=== PATIENT | female | born 1950 | race Caucasian/White ===

== ENCOUNTER 2021-06-13 14:03 | Inpatient (IN) | payer MEDICARE, SELFPAY ==
[2021-06-13] VITALS (12 sets, daily range): BP systolic 105–132; BP diastolic 65–95; PULSE 53–130; RESP 15–24; TEMP 36.4–36.7; O2SAT 91–99; BMI 19.1; BMI 20.7
--- NOTE | 2021-06-13 14:18 | EKG12_ITS ---
Test Reason : PALPS Blood Pressure : / mmHG Vent. Rate : 144 BPM Atrial Rate : 170 BPM P-R Int : 000 ms QRS Dur : 074 ms QT Int : 286 ms P-R-T Axes : 000 104 069 degrees QTc Int : 442 ms Atrial fibrillation Abnormal ECG Confirmed by JESSICA ONEIL MD ([id number]), manuscript editor DANIA SERRANO ([id number]) on 06/17/2021 9:47:20 AM Referred By: SUKUMAR
--- NOTE | 2021-06-13 14:19 | EDS_ITS ---
HPI History of Present Illness Chief Complaint: Palpitations Informant: patient Onset/Context/Timing Onset: Month(s) Current Severity: Moderate Maximum Severity: Moderate Narrative Narrative: Patient presents secondary to palpitations and feels as if she is in a flutter again. Patient has a history of paroxysmal A. fib. She states she feels like she has been in irregular rhythm for the last 10-1/2 months. She presents today because she is tired of not being able to do anything without having to stop and rest. She states she will feel short of breath when she exerts herself, but does admit she does not have trouble breathing. She denies chest pain. 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 She is currently on metoprolol and warfarin. [facility] Medical History (Updated 06/13/21 @ 16:[address] Fanny Rodriguez MD) CHF (congestive heart failure) Paroxysmal atrial fibrillation Thyroid disorder Home Medications aspirin 81 mg PO DAILY@0800 tab.chew 10/20/16 [Rx Last Taken 11/24/16] furosemide 20 mg PO BID@1000,1800 11/23/16 [History Last Taken Unknown] potassium chloride [Klor-Con M20] 20 meq PO BIDCM 11/23/16 [History Last Taken Unknown] flecainide 50 mg PO BID 05/08/17 [History Last Taken Unknown] metoprolol tartrate 25 mg PO BID 05/24/17 [History Last Taken Unknown] ferrous sulfate 325 mg PO BIDCM tab 05/25/17 [Rx Last Taken Unknown] pantoprazole 40 mg PO DAILY #30 tablet 05/25/17 [Rx Last Taken Unknown] Allergy/AdvReac Type Severity Reaction Status Date / Time No Known Allergies Allergy Verified 06/13/21 14:04 Social History Smoking Status: Never smoker ROS ROS ED Constitutional Constitutional ED: Denies chills or fever(s) Eyes Eyes: Denies change in vision ENT ENT ED: Denies sore throat Cardiovascular Cardiovascular: Reports palpitations and racing heartbeat; Denies chest pain Respiratory/Chest Respiratory/Chest: Reports dyspnea; Denies cough Gastrointestinal Gastrointestinal: Denies abdominal pain, diarrhea, nausea or vomiting Genitourinary Genitourinary ED: Denies dysuria Musculoskeletal Musculoskeletal: Denies back pain Integumentary Reports rash Neurologic Neurologic: Denies headache(s) or weakness Psychiatric Psychiatric: Denies anxiety or depression Allergic/Immunologic Allergic/Immunologic ED: Denies urticaria EXAM Physical Exam Const Vital Signs: 06/13/21 14:04 06/13/21 14:14 06/13/21 14:33 Temperature 98.1 F Temperature Source Temporal Pulse Rate 53 L 130 H Respiratory Rate 18 20 H Respiratory Effort Normal Non-Labored Respiratory Pattern Normal Blood Pressure 122/67 H Blood Pressure Mean 85 Pulse Ox 99 91 Oxygen Delivery Method Room Air Room Air 06/13/21 14:47 06/13/21 15:05 06/13/21 15:23 Temperature Temperature Source Pulse Rate 93 117 H 104 H Respiratory Rate 24 H 22 H 20 H Respiratory Effort Respiratory Pattern Blood Pressure 105/83 H 110/95 H 124/88 H Blood Pressure Mean 90 100 100 Pulse Ox 95 96 95 Oxygen Delivery Method Room Air Room Air Room Air Positive well nourished and well developed General Appearance ED: well developed HEENT Reports normocephalic and head/scalp atraumatic Eyes PERRL and EOMs intact bilaterally Neck supple Chest Wall inspection of chest normal and palpation of chest normal Resp normal respiratory effort and clear to auscultation bilaterally Cardio Rate: tachycardic Rhythm: abnormal rhythm irregularly irregular GI normal to inspection, nondistended, normoactive bowel sounds Palpation: soft Extremity normal to inspection Neuro oriented x3 and no sensory deficits noted Sensorium / Orientation: alert Motor Exam: strength 5/5 throughout Psych mental status grossly normal Skin no rashes or lesions noted MDM MDM MDM Narrative Medical decision making narrative: Labs, EKG, chest x-ray obtained. Lab Data Attestation: I reviewed the patient's lab results. Labs: Laboratory Results - last 24 hr 06/13/21 06/13/21 06/13/21 14:30 14:30 14:30 WBC 8.9 RBC 5.13 Hgb 14.4 Hct 44.9 MCV 87.5 MCH 28.1 MCHC 32.1 RDW Std Deviation 47.1 H RDW Coeff of Nicole 14.6 Plt Count 233 MPV 10.8 Immature Gran % (Auto) 0.400 Neut % (Auto) 73.3 H Lymph % (Auto) 18.0 L Barnwell % (Auto) 7.3 Eos % (Auto) 0.6 Baso % (Auto) 0.4 Absolute Neuts (auto) 6.5 Absolute Lymphs (auto) 1.60 Nucleated RBC % 0 PT 35.9 H INR 3.7 Sodium 135 L Potassium 4.3 Chloride 103 Carbon Dioxide 26.0 Anion Gap 6 BUN 27 H Creatinine 0.98 Estim Creat Clear Calc 42.73 Est GFR (MDRD) Af Amer 72 Est GFR (MDRD) Non-Af 59 L BUN/Creatinine Ratio 27.6 H Glucose 101 Calcium 8.5 Troponin I High Sens 10.8 B-Natriuretic Peptide TSH 9.46 H 06/13/21 14:30 WBC RBC Hgb Hct MCV MCH MCHC RDW Std Deviation RDW Coeff of Nicole Plt Count MPV Immature Gran % (Auto) Neut % (Auto) Lymph % (Auto) Barnwell % (Auto) Eos % (Auto) Baso % (Auto) Absolute Neuts (auto) Absolute Lymphs (auto) Nucleated RBC % PT INR Sodium Potassium Chloride Carbon Dioxide Anion Gap BUN Creatinine Estim Creat Clear Calc Est GFR (MDRD) Af Amer Est GFR (MDRD) Non-Af BUN/Creatinine Ratio Glucose Calcium Troponin I High Sens B-Natriuretic Peptide 2659.5 H TSH Radiography Chest X-Ray - ED: 1 View, Read by ED Physician and CHF EKG Initial EKG: Attestation: I personally reviewed and interpreted this EKG as follows: Interpretation: Atrial Fibrillation (A. fib at 144. No acute ST change.) Treatment and Re-Evaluation Comments:: Patient was given 10 mg of IV Cardizem. This brought her heart rate down into the 90s but she did increase back to the 120s again. A second dose of 10 mg is given. Patient's heart rate is currently in the 80s and 90s. Patient does have evidence of significant CHF on her chest x-ray per my interpretation as well as the radiologist interpretation. This was discussed with her. She will be given IV Lasix as she states her oral Lasix has not been helping her much lately. Plan will be to admit her for diuresis, rate control, evaluation by cardiology. Discharge Plan Triage Chief Complaint: Palpitations Other Complaint: Dizziness ED Provider: Fanny Rodriguez Dx/Rx/DC Orders Clinical Impression: Atrial fibrillation with rapid ventricular response, CHF (congestive heart failure) Prescriptions: No Action aspirin 81 MG Tab.Chew 81 mg PO DAILY@0800 RF: 0 furosemide 40 MG tablet 20 mg PO BID@1000,1800 RF: 0 potassium chloride [Klor-Con M20] 20 MEQ tablet 20 meq PO BIDCM RF: 0 flecainide 100 MG tablet 50 mg PO BID RF: 0 metoprolol tartrate 100 MG tablet 25 mg PO BID RF: 0 ferrous sulfate 325 MG tablet 325 mg PO BIDCM RF: 0 pantoprazole 40 MG tablet 40 mg PO DAILY Qty: 30 RF: 3 Primary Care Provider: Lei Acevedo Referrals: Lei Acevedo MD [Primary Care Provider] - Disposition Disposition: Acute Care Hospital [facility]
[2021-06-13] MEDS: dilTIAZem 25 MG/5 ML Vial 10 MG IV BOLUS ×2 (14:34→15:24)
[2021-06-13] MEDS: 0.9% Normal Saline 1,000 ML 150 ML IV (14:35)
[2021-06-13 14:37] LABS: Absolute Neutrophil Count 6.5 X10^3/uL (2.0-7.7); Basophil# 0.04 X10^3/uL; Basophil% 0.4 % (0-1); Eosinophil# 0.05 X10^3/uL; Eosinophils% 0.6 % (0-5); Hematocrit 44.9 % (37-47); Hemoglobin 14.4 g/dL (12.0-15.0); Mean Corp Hgb Conc 32.1 g/dL (32-36); Mean Corpuscular Hgb 28.1 pg (27.0-32.0); Mean Corpuscular Volume 87.5 fL (81-99); Mean Platelet Vol. 10.8 fl (6.2-12.0); Monocyte# 0.65 X10^3/uL; Monocyte% 7.3 % (0-10); NRBC Flagged by Analyzer 0 % (0-5); Neutrophil # 6.51 X10^3/uL (2.7-7.7); Neutrophil % 73.3 % (47-70); Platelet Count 233 K/mm3 (150-450); RBC Distribution Width CV 14.6 % (11.6-14.6); RBC Distribution Width SD 47.1 fl (35.1-43.9); Red Blood Count 5.13 M/mm3 (4.2-5.4); White Blood Count 8.9 K/mm3 (4.4-11.0)
--- NOTE | 2021-06-13 14:48 | RAD_ITS ---
STUDY: X-RAY CHEST REASON FOR EXAM: Female, 70 years old. Cough, dizziness. Palpitations. TECHNIQUE: Single AP portable view of the chest. COMPARISON: Comparison is made with prior study dated 05/24/2017. FINDINGS: EKG electrodes are seen. There is evidence of vascular congestion and CHF. Blunting of both confluent angles. Moderate cardiomegaly. Normal mediastinum and evelyn. Normal visualized pulmonary arteries. There is atherosclerotic calcification of the aortic arch with tortuosity. There are diffuse degenerative changes of the visualized thoracic spine. Levoscoliosis. There is degenerative osteoarthritis of the bilateral shoulders. There is no demonstrated abnormality of the visualized soft tissue structures of the upper abdomen. RAD/Chest 1 View (Portable) IMPRESSION: Cardiomegaly and CHF. Electronically Signed: Heriberto Urena MD at 15:11 EDT , Service support ,
[2021-06-13 14:49] LABS: International Normalized Ratio 3.7; Prothrombin Time (Protime)PT. 35.9 SECONDS (11.7-14.9)
[2021-06-13 15:01] LABS: Anion Gap 6 (5-15); BUN 27 mg/dL (7-18); BUN/Creat Ratio 27.6 RATIO (10-20); Calcium,Total 8.5 mg/dL (8.5-10.1); Chloride 103 mmol/L (98-107); Creatinine, Serum 0.98 mg/dL (0.55-1.02); EST Glomerular Filtration Rate 59 mL/min (>60); Est Glom Filt Rate - Afr Amer 72 mL/min (>60); Estimated Creatinine Clearance 42.73 ml/min; Glucose 101 mg/dL (74-106); Potassium 4.3 mmol/L (3.5-5.1); Sodium Level 135 mmol/L (136-145); Thyroid Stim Hormone (TSH) 9.46 uIU/mL (0.358-3.74); Troponin-I HS 10.8 pg/mL (3.0-53.7)
[2021-06-13 15:30] LABS: BNP,B-Type NATRIURETIC PEPTIDE 2659.5 pg/mL (0-100)
--- NOTE | 2021-06-13 16:14 | PCM.HP.STD ---
HPI - General General Date of Admission: 06/13/21 Date of Service: 06/13/21 Chief Complaint: Exertional dyspnea, palpitations HPI Narrative The patient is a 70 y/o F w/ PMHx: PAF, Hypothyroidism, GERD, Chronic anemia/Fe deficiency, HTN, HLD, Former Tobacco use who presents to the [facility] ED on 06/13/21 with history of sensations of palpitations, although she notes this has been ongoing for several months in addition to exertional dyspnea without chest pain, not following with Cardiology, only notes seeing her PCP. She had been on flecainide but has been off this and was transitioned only to metoprolol and coumadin. She notes that her doctor, her PCP, said she could not be on flecainide long-term. She notes if she walks she has to stop and rest with notable tachycardic sensation and dyspnea. Work-up in the ED included T 98.1, heart rate initially 53 however prior to evaluation heart rate 104, BP 122/67, respiratory rate 18, 99% on room air, CBC with WBC 8.9, hemoglobin 14.4, platelet 233 without marked shift, coags with PT 35.9, INR 3.7, BMP with sodium 135, BUN/creatinine 27/0.98, high-sensitivity troponin 10.8, TSH 9.46, BNP 2659.5, EKG performed with evidence atrial fibrillation with at that time rate 144 with evidence RVR with no acute evidence of ischemia, chest x-ray with evidence congestion. In the ED patient ministered 10 mg IV Cardizem with decrease of heart rate to the 90s however reoccurred with second dose administered in addition to IV Lasix administration. [facility] Medical History (Updated 06/13/21 @ 16:[address] Diana Deshpande MD) CHF (congestive heart failure) Former tobacco use History of goiter HLD (hyperlipidemia) HTN (hypertension) Paroxysmal atrial fibrillation Thyroid disorder Home Medications levothyroxine 25 mcg PO DAILY 06/13/21 [History Last Taken 06/13/21] lisinopril 10 mg PO DAILY 06/13/21 [History Last Taken 06/12/21] metoprolol succinate 50 mg PO DAILY 06/13/21 [History Last Taken 06/13/21] warfarin 3 mg PO DAILY 06/13/21 [History Last Taken 06/12/21] Allergy/AdvReac Type Severity Reaction Status Date / Time No Known Allergies Allergy Verified 06/13/21 14:04 Family History (Updated 06/13/21 @ 16:[address] Diana Deshpande MD) Mother Colon cancer Father Heart disease Myocardial infarction Surgical History (Updated 06/13/21 @ 16:[address] Diana Deshpande MD) S/P appendectomy S/P cholecystectomy S/P partial thyroidectomy Social History (Updated 06/13/21 @ 16:[address] Diana Deshpande MD) household members: spouse Smoking Status: Former smoker how long ago did patient quit smoking: Quit 2014, 1/2 ppd since eraly 20s. alcohol intake: never substance use type: does not use ROS ROS Narrative Admission Review of Systems: CONSTITUTIONAL: No weight loss, fever, chills, + weakness or fatigue. HEENT: Eyes: No visual loss, blurred vision, double vision or yellow sclerae. Ears, Nose, Throat: No hearing loss, sneezing, congestion, runny nose or sore throat. SKIN: No rash or itching, lesions, wounds. CARDIOVASCULAR: + Palpitations, edema. No chest pain, chest pressure or chest discomfort, orthopnea, syncopal events. RESPIRATORY: + shortness of breath, No cough or sputum, wheezing, hemoptysis. GASTROINTESTINAL: No anorexia, nausea, vomiting or diarrhea, abdominal pain, melena, BRBPR. GENITOURINARY: No dysuria, frequency, urgency or retention. NEUROLOGICAL: No headache, dizziness, syncope, paralysis, ataxia, numbness or tingling in the extremities, focal weakness, change in bowel or bladder control, seizure. MUSCULOSKELETAL: + muscle, back pain, joint pain or stiffness. HEMATOLOGIC: + anemia, bleeding or bruising. LYMPHATICS: No enlarged nodes. No history of splenectomy. PSYCHIATRIC: No history of depression or anxiety. ENDOCRINOLOGIC: No reports of sweating, cold or heat intolerance. No polyuria or polydipsia. ALLERGIES: No history of asthma, hives, eczema or rhinitis. Vital Signs Vital Signs Vital Signs: 06/13/21 14:04 06/13/21 14:14 06/13/21 14:33 Temperature 98.1 F Temperature Source Temporal Pulse Rate 53 L 130 H Respiratory Rate 18 20 H Respiratory Effort Normal Non-Labored Respiratory Pattern Normal Blood Pressure 122/67 H Blood Pressure Mean 85 Pulse Ox 99 91 Oxygen Delivery Method Room Air Room Air 06/13/21 14:47 06/13/21 15:05 06/13/21 15:23 Temperature Temperature Source Pulse Rate 93 117 H 104 H Respiratory Rate 24 H 22 H 20 H Respiratory Effort Respiratory Pattern Blood Pressure 105/83 H 110/95 H 124/88 H Blood Pressure Mean 90 100 100 Pulse Ox 95 96 95 Oxygen Delivery Method Room Air Room Air Room Air Weight Weight: 115 lb Body Mass Index (BMI) 19.1 Physical Exam Narrative Physical Examination: General: Awake, alert, oriented x 3 and cooperative, seated upright in the bed, fatigued appearing, no acute distress. Skin: Normal color, normal turgor, no icterus, no cyanosis. HEENT: AT/NC, EOMI, PERRLA, mildly dry MM, no carotid bruits, + JVD noted. Lungs: Diminished, greater bases, mild rales bilateral bases, no evidence of any distress, ronchi or wheezing. Heart: Irregular irregular; no gallop, rub audible. Abdomen: Soft, thin habitus, NTTP, ND, normal BS, no HSM. Extremities: No cyanosis, no clubbing, bilateral lower extremity pedal to distal sexton 1-2+ pitting edema. Neurological: Patient awake, alert, oriented as noted, cognitive function appears baseline intact; pupils equally reactive to light and accommodation, cranial nerves II-XII grossly normal, moving all 4 extremities, no focal deficits, strength moderately global decrease secondary to acute presentation. Psychiatric: Affect appears fatigued, no acute evidence of depressive or anxiety feelings. Results Lab / Micro Data Result Diagrams: 06/13/21 14:30 06/13/21 14:30 Labs: Laboratory Results - last 24 hr 06/13/21 14:30: WBC 8.9, RBC 5.13, Hgb 14.4, Hct 44.9, MCV 87.5, MCH 28.1, MCHC 32.1, RDW Std Deviation 47.1 H, RDW Coeff of Nicole 14.6, Plt Count 233, MPV 10.8, Immature Gran % (Auto) 0.400, Neut % (Auto) 73.3 H, Lymph % (Auto) 18.0 L, Lucas % (Auto) 7.3, Eos % (Auto) 0.6, Baso % (Auto) 0.4, Absolute Neuts (auto) 6.5, Absolute Lymphs (auto) 1.60, Nucleated RBC % 0 06/13/21 14:30: PT 35.9 H, INR 3.7 06/13/21 14:30: Sodium 135 L, Potassium 4.3, Chloride 103, Carbon Dioxide 26.0, Anion Gap 6, BUN 27 H, Creatinine 0.98, Estim Creat Clear Calc 42.73, Est GFR (MDRD) Af Amer 72, Est GFR (MDRD) Non-Af 59 L, BUN/Creatinine Ratio 27.6 H, Glucose 101, Calcium 8.5, Troponin I High Sens 10.8, TSH 9.46 H 06/13/21 14:30: B-Natriuretic Peptide 2659.5 H Assessment & Plan Assessment/Plan (1) CHF (congestive heart failure): QUALIFIERS: Heart failure type: unspecified Heart failure chronicity: acute Qualified Code(s): I50.9 - Heart failure, unspecified (2) Atrial fibrillation with rapid ventricular response: (3) Elevated TSH: PLAN: The patient is a 70 y/o F w/ PMHx: PAF, Hypothyroidism, GERD, Chronic anemia/Fe deficiency, HTN, HLD, Former Tobacco use who presents to the [facility] ED on 06/13/21 with history of sensations of palpitations, although she notes this has been ongoing for several months in addition to exertional dyspnea without chest pain, not following with Cardiology, only notes seeing her PCP. 1. Acute Decompensated CHF, Unclear type: Patient administered IV lasix in the ED, will admit to PCU, maintain on cardiac telemetry obtain cardiac enzyme series, obtain serial EKGs, continue IV lasix diuresis, monitor I/Os, maintain on intake restriction, continue medical therapy, obtain TSH and magnesium level. Will obtain ECHO. Cardiology consulted, pending. PRN morphine to decrease afterload, continue oxygen supplementation, if necessary will position w/ upright position with legs off bed to decrease preload. 2. Paroxysmal atrial fibrillation with RVR: EKG in ED w/ atrial fibrillation w/ RVR. Patient administered cardizem bolus twice in ED. Will admit to PCU, maintain on telemetry, obtain cardiac enzyme serial set, obtain magnesium level, obtain ECHO, TSH elevated with pending FT4 level. Will trend INR and hold coumadin as needed. Currently rate improved, will dose with metoprolol now and continue to monitor. If needed may initiate cardizem drip. Cardiology consulted, pending. 3. Hypothyroidism with abnormal TSH: Patient with history of prior goiter status post partial thyroidectomy, admission TSH elevated, will obtain FT4, continue synthroid in interim pending these results for alterations. 4. Chronic anemia/iron deficiency anemia: Reported history, admission hemoglobin 14.4, stable, trend. Not currently on any supplementation. 5. Hypertension: Continue home regimen including lisinopril, metoprolol with further alterations as needed as noted above, hold parameters, PRN hydralazine. 6. Hyperlipidemia: Given history will add low-dose statin regimen. AM FLP. 7. GERD: We will maintain on PPI. 8. DVT prophylaxis: SCDs, continue trending INR, hold Coumadin as needed. 9. CODE status: Patient PORFIRIO is her who is present and living will is currently in place. Discussed CODE status at length including difference between FULL code, DNR-CCA and DNR-CC status. Following discussions about the differences in these status, requested Full Code status. Advanced Care Planning Face to Face Time: 16 minutes. Charges/Coding Visit Charges Inpatient E&M: 85920 Init Hosp L3 Procedures Hospitalists Procedures: 28266 Advncd Care Plan 30 Min
[2021-06-13] MEDS: Furosemide 40 MG/4 ML Vial IV (16:22)
[2021-06-13 17:28] LABS: Magnesium 2.3 mg/dL (1.6-2.6)
[2021-06-13 18:48] LABS: Troponin-I HS 10.6 pg/mL (3.0-53.7)
--- NOTE | 2021-06-13 19:07 | NURSING ---
Patient arrived to unit at 1800. Admission nurse gave brief report to this RN. Patient dinner ordered and received. Patient eating and talking on cell phone. Will return to complete assessment.
--- NOTE | 2021-06-13 21:10 | CON.PCM.CA_ITS ---
Assessment & Plan Assessment/Plan (1) Atrial fibrillation with rapid ventricular response: PLAN: The patient has been in atrial fibrillation. It is unclear as to how long but based upon her history it has been for some time now. At the present time she will continue attempts at rate control therapy. She will continue anticoagulant therapy. She may need to be considered for a repeat attempt at synchronized biphasic DC cardioversion to regain sinus rhythm. However she may also need to be considered for a future EP consultation for possible EPS/RFA either of her atrial fibrillation or of her AV node with perma nent pacemaker support. (2) CHF (congestive heart failure): QUALIFIERS: Heart failure type: unspecified Heart failure chronicity: acute Qualified Code(s): I50.9 - Heart failure, unspecified PLAN: She does have evidence of CHF. In the past this was thought to be with preserved ejection fraction. At the moment she will continue medical therapy. This will include her diuretic therapy. She will have a follow-up echocardiogram to reassess her ventricular wall motion and systolic function. (3) HLD (hyperlipidemia): QUALIFIERS: Hyperlipidemia type: unspecified Qualified Code(s): E78.5 - Hyperlipidemia, unspecified PLAN: Her lipid labs can be reexamined. She will need treated appropriately. (4) HTN (hypertension): QUALIFIERS: Hypertension type: unspecified Qualified Code(s): I10 - Essential (primary) hypertension PLAN: Her blood will need to be followed with adjusting her medications accordingly. (5) Elevated TSH: PLAN: She does have a thyroid history. She will need continue evaluation care per internal medicine. Addt'l Comments The patient will continue evaluation care as noted above. This note was generated using a voice recognition system and there may be incorrect words, spelling or punctuation that were not noted when reviewing the office note prior to saving. HPI Consult Data Date of Consult: 06/13/21 HPI Narrative HPI Narrative: JAYSHREE BOWEN, is a 70 year old white female who presents cardiovascular consultation based upon concerns of atrial fibrillation and CHF superimposed upon concerns of hyperlipidemia, hypertension, and thyroid disorder. She had previously been evaluated for a similar scenario in October 2016. At that time she underwent medical therapy and a noninvasive evaluation. In November 2016 she underwent evaluation and care with a synchronized biphasic DC cardioversion and regain sinus rhythm. Over time she states she did not continue with her outpatient cardiovascular follow-up. She has been followed by her PCP. Her medications were adjusted over time where she had at one time been on rate control therapy and antiarrhythmic therapy with flecainide/Tambocor as well as her anticoagulant therapy to just being on rate control therapy and anticoagulant therapy. She notes now that for quite some time she feels she has been back in a flutter rhythm. She states this may have been going on for greater than a month. She notes that more recently she felt her heart rate more prominent and felt she may have been back in an underlying fibrillation rhythm. She also has become more short of breath and dyspneic and felt as if she was retaining fluid to some degree in her abdomen and her lower extremities. Thus she presented to the hospital for further evaluation. She was found to be in atrial fibrillation with RVR. There were concerns that she had developed recurrent CHF/pulmonary edema. Her troponin I level was negative. She did have a BNP level elevated at two 659 .5. Her ECG demonstrated atrial fibrillation with rapid ventricular response. She was placed in the PCU for further evaluation care. She has been treated with IV diltiazem therapy (bolus x2), her beta-yany therapy, and 1 dose of IV furosemide. She has continued on medical management with her anticoagulant therapy. [facility] Medical History (Updated 06/13/21 @ 21:[address] Mikhail Pittman MD) CHF (congestive heart failure) Former tobacco use History of goiter HLD (hyperlipidemia) HTN (hypertension) Paroxysmal atrial fibrillation Thyroid disorder Home Medications levothyroxine 25 mcg PO DAILY 06/13/21 [History Last Taken 06/13/21] lisinopril 10 mg PO DAILY 06/13/21 [History Last Taken 06/12/21] metoprolol succinate 50 mg PO DAILY 06/13/21 [History Last Taken 06/13/21] warfarin 3 mg PO DAILY 06/13/21 [History Last Taken 06/12/21] Allergy/AdvReac Type Severity Reaction Status Date / Time No Known Allergies Allergy Verified 06/13/21 14:04 Family History (Updated 06/13/21 @ 16:[address] Diana Deshpande MD) Mother Colon cancer Father Heart disease Myocardial infarction Surgical History S/P appendectomy S/P cholecystectomy S/P partial thyroidectomy Social History (Updated 06/13/21 @ 16:[address] Diana Deshpande MD) household members: spouse Smoking Status: Former smoker how long ago did patient quit smoking: Quit 2014, 1/2 ppd since eraly 20s. alcohol intake: never substance use type: does not use ROS Constitutional Constitutional: Reports as per HPI Eyes Eyes: Reports as per HPI ENT HEENT: Reports as per HPI Cardiovascular Cardiovascular: Reports dyspnea, leg edema and palpitations Respiratory/Chest Respiratory/Chest: Reports dyspnea Gastrointestinal Gastrointestinal: Reports as per HPI Genitourinary Genitourinary: Reports as per HPI Musculoskeletal Musculoskeletal: Reports as per HPI Neurologic Neurologic: Reports as per HPI Physical Exam Const alert, oriented x3, no apparent distress and healthy appearing Orientation / Consciousness: awake HEENT normocephalic, head/scalp atraumatic and hearing grossly normal bilaterally Eyes PERRL, EOMs intact bilaterally and conjunctivae normal Neck full ROM, supple and no JVD Chest inspection of chest normal Resp Auscultation: rales bilateral lower Cardio Rhythm: abnormal rhythm irregularly irregular Heart Sounds: S1 normal and S2 normal GI normal to inspection, nondistended, normoactive bowel sounds Extremity General Extremity: edema bilateral lower extremity Details: mild Skin no rashes or lesions noted Neuro oriented x3, CN's II-XII intact bilaterally and moves all extremities Psych mental status grossly normal Objective Data Vital Signs: Vital Signs Temp Pulse Resp BP Pulse Ox 98.1 F 108 H 15 115/90 H 96 06/13/21 17:50 06/13/21 17:50 06/13/21 20:17 06/13/21 17:50 06/13/21 17:50 Oxygen Delivery Method Room Air Weight: 124 lb 6.4 oz Body Mass Index (BMI) 20.7 Lab / Micro Data Result Diagrams: 06/13/21 14:30 06/13/21 14:30 Labs: Laboratory Results - last 24 hr 06/13/21 14:30: WBC 8.9, RBC 5.13, Hgb 14.4, Hct 44.9, MCV 87.5, MCH 28.1, MCHC 32.1, RDW Std Deviation 47.1 H, RDW Coeff of Nicole 14.6, Plt Count 233, MPV 10.8, Immature Gran % (Auto) 0.400, Neut % (Auto) 73.3 H, Lymph % (Auto) 18.0 L, [place] % (Auto) 7.3, Eos % (Auto) 0.6, Baso % (Auto) 0.4, Absolute Neuts (auto) 6.5, Absolute Lymphs (auto) 1.60, Nucleated RBC % 0 06/13/21 14:30: PT 35.9 H, INR 3.7 06/13/21 14:30: Sodium 135 L, Potassium 4.3, Chloride 103, Carbon Dioxide 26.0, Anion Gap 6, BUN 27 H, Creatinine 0.98, Estim Creat Clear Calc 42.73, Est GFR (MDRD) Af Amer 72, Est GFR (MDRD) Non-Af 59 L, BUN/Creatinine Ratio 27.6 H, Glucose 101, Calcium 8.5, Troponin I High Sens 10.8, TSH 9.46 H 06/13/21 14:30: B-Natriuretic Peptide 2659.5 H 06/13/21 14:30: Magnesium 2.3 06/13/21 18:17: Troponin I High Sens 10.6 Cardiology Labs/Tests 06/13/21 14:30: WBC 8.9, RBC 5.13, Hgb 14.4, Hct 44.9, MCV 87.5, MCH 28.1, MCHC 32.1, Plt Count 233, MPV 10.8, Immature Gran % (Auto) 0.400, Neut % (Auto) 73.3 H, Lymph % (Auto) 18.0 L, [place] % (Auto) 7.3, Eos % (Auto) 0.6, Baso % (Auto) 0.4, Absolute Neuts (auto) 6.5, Nucleated RBC % 0 06/13/21 14:30: PT 35.9 H, INR 3.7 06/13/21 14:30: Sodium 135 L, Potassium 4.3, Chloride 103, Carbon Dioxide 26.0, Anion Gap 6, BUN 27 H, Creatinine 0.98, Est GFR (MDRD) Af Amer 72, Est GFR (MDRD) Non-Af 59 L, BUN/Creatinine Ratio 27.6 H, Glucose 101, Calcium 8.5 06/13/21 14:30: B-Natriuretic Peptide 2659.5 H 06/13/21 14:30: Magnesium 2.3 Rhythm: Atrial fibrillation with RVR EKG: Atrial fibrillation with RVR ECHO: 10-19-2016 Left ventricle normal with an LVEF 60%; moderate biatrial enlargement; mild to moderate MR; moderate TR; small pericardial effusion; no echocardiographic indication of cardiac tamponade; estimated RV systolic pressure 28 mmHg Stress Test: 10-20-2016 EXERCISE TOLERANCE TEST: The patient underwent pharmacologic (regadenoson) evaluation with a peak heart rate of 142 beats per minute (93% predicted maximum heart rate) and a peak blood pressure of 128/72 mmHg. The baseline ECG demonstrated atrial fibrillation. The peak pharmacologic ECG demonstrated continued atrial fibrillation with no obvious ECG changes. There was a rare PVC during recovery. The patient had no complaint of chest discomfort during pharmacologic infusion or recovery. The examination was discontinued secondary to completion of protocol. IMPRESSION: 1. Pharmacologic (regadenoson) evaluation. 2. Peak pharmacologic ECG with continued atrial fibrillation with no obvious ECG changes. 3. Rare PVC during recovery. 4. Nuclear images pending. MYOCARDIAL PERFUSION IMAGING STUDY: TECHNIQUE: The patient was injected with 11.2 mCi of Tc99m Cardiolite and subsequently rest SPECT Cardiolite nuclear imaging was obtained in the horizontal long, vertical long and short axes views. The patient underwent pharmacologic (regadenoson) evaluation with a peak heart rate of 142 beats per minute (93% predicted maximum heart rate) and a peak blood pressure of 128/72 mmHg. The patient was injected with 32.1 mCi of Tc99m Cardiolite and subsequently stress SPECT Cardiolite nuclear imaging was obtained in the horizontal long, vertical long and short axes views. A gated Cardiolite study at peak stress was obtained. INTERPRETATION: Rest and stress SPECT Cardiolite nuclear imaging demonstrate relative uniform tracer uptake and myocardial perfusion appearing within normal limits. There was end systolic thickening and brightening. The gated Cardiolite study demonstrates myocardial thickening and inward wall motion. The reported LVEF is 74%. IMPRESSION: 1. Rest and stress SPECT Cardiolite nuclear imaging demonstrate relative uniform tracer uptake and myocardial perfusion appearing within normal limits. 2. The gated Cardiolite study reports an LVEF of 74%.
[2021-06-13] MEDS: Digoxin 250 MCG/ML Ampul 500 MCG IV (22:06)
[2021-06-13 22:13] LABS: Troponin-I HS 9.9 pg/mL (3.0-53.7)
[2021-06-13] MEDS: BENZOCAINE/MENTHOL 1 LOZENGE MUCOUS MEM (23:32)
[2021-06-13] MEDS: guaiFENesin 10 ML UDC (200MG/10ML) 20 ML PO (23:32)
[2021-06-14] VITALS (14 sets, daily range): BP systolic 120–140; BP diastolic 78–98; PULSE 86–125; RESP 15–18; TEMP 36.1–36.6; O2SAT 92–97
--- NOTE | 2021-06-14 05:55 | EKG12_ITS ---
Test Reason : Blood Pressure : / mmHG Vent. Rate : 099 BPM Atrial Rate : 288 BPM P-R Int : 000 ms QRS Dur : 084 ms QT Int : 346 ms P-R-T Axes : 000 096 104 degrees QTc Int : 444 ms Atrial fibrillation with premature ventricular or aberrantly conducted complexes Abnormal ECG Confirmed by KHAI SANTIAGO, MARKY ([id number]), story editor DANIA SERRANO ([id number]) on 06/18/2021 10:58:55 AM Referred By: ALFREDO Confirmed By:MARKY RIDLEY MD
--- NOTE | 2021-06-14 05:55 | ECHOD_ITS ---
Reason For Study: AFIB/FLUTTER Procedure This was a 2D Doppler, Color Flow transthoracic echocardiogram. The study was technically difficult. Exam performed portable in patient room. Left Ventricle Normal LV size. Left ventricular systolic function is lower limits of normal. The estimated ejection fraction is 50 %. Unable to assess diastolic dysfunction. No regional wall motion abnormalities noted. Right Ventricle Normal RV size. Normal systolic function. Atria The left atrium is moderately enlarged. The right atrium is moderately enlarged. No doppler evidence for ASD. Mitral Valve There is no mitral annular calcification. Normal mitral valve. Mild-Moderate (1-2+) mitral valve insufficiency. Tricuspid Valve Normal tricuspid valve. Mild to moderate (1-2+) tricuspid valve insufficiency. Right ventricular systolic pressure estimated to be 29 mmHg. Aortic Valve Trisinus/trileaflet aortic valve. Mild diffuse aortic valve thickening. Pulmonic Valve The pulmonic valve is not well visualized. Mild (1+) pulmonic valve insufficiency. Great Vessels Normal sized aortic root. Pericardium/Pleural Small pericardial effusion. There are no echocardiographic indications of cardiac tamponade. MMode/2D Measurements & Calculations LVIDd: 4.7 cm IVSd: 1.0 cm Ao root diam: 3.3 cm LVIDs: 3.5 cm LVPWd: 0.84 cm RVDd: 2.8 cm FS: 25.1 % LAV(MOD-bp): 73.6 ml LA A4 area: 24.2 cm2 LA dimension(2D): 4.2 cm LAV(MOD-bp) Indexed: 45.9 ml/m2 LAV(MOD-sp2): 70.0 ml LAV(MOD-sp4): 72.4 ml RA A4 area: 21.4 cm2 Doppler Measurements & Calculations MV E max janneth: 98.1 cm/sec Ao V2 max: 102.4 cm/sec LV V1 max: 64.1 cm/sec Ao max P.3 mmHg LV V1 max P.6 mmHg MR max janneth: 507.3 cm/sec PA V2 max: 104.2 cm/sec TR max janneth: 251.8 cm/sec MR max P.9 mmHg TR max P.7 mmHg ECHO/Echo Complete Interpretation Summary The study was technically difficult. Left ventricular systolic function is lower limits of normal. The estimated ejection fraction is 50 %. The left atrium is moderately enlarged. The right atrium is moderately enlarged. Mild-Moderate (1-2+) mitral valve insufficiency. Mild to moderate (1-2+) tricuspid valve insufficiency. Mild diffuse aortic valve thickening. Mild (1+) pulmonic valve insufficiency. Small pericardial effusion. There are no echocardiographic indications of cardiac tamponade. Right ventricular systolic pressure estimated to be 29 mmHg. Unable to assess diastolic dysfunction. Ordering Physician: Mikhail Pittman Referring Physician: Lei Acevedo Performed By: Lory Goodwin, RDCS, RVT
[2021-06-14] MEDS: Levothyroxine 25 MCG TABLET PO (06:09)
[2021-06-14 08:56] LABS: Absolute Lymphocyte Count 1.21 X10^3/uL (0.83-4.51); Absolute Neutrophil Count 5.4 X10^3/uL (2.0-7.7); Basophil# 0.04 X10^3/uL; Basophil% 0.5 % (0-1); Eosinophil# 0.11 X10^3/uL; Eosinophils% 1.5 % (0-5); Hematocrit 42.4 % (37-47); Hemoglobin 13.7 g/dL (12.0-15.0); Lymphocyte # 1.21 X10^3/ul (0.83-4.51); Lymphocyte % 16.3 % (19-41); Mean Corp Hgb Conc 32.3 g/dL (32-36); Mean Corpuscular Hgb 28.4 pg (27.0-32.0); Mean Corpuscular Volume 87.8 fL (81-99); Mean Platelet Vol. 10.7 fl (6.2-12.0); Monocyte# 0.66 X10^3/uL; Monocyte% 8.9 % (0-10); NRBC Flagged by Analyzer 0 % (0-5); Neutrophil # 5.41 X10^3/uL (2.7-7.7); Neutrophil % 72.7 % (47-70); Platelet Count 180 K/mm3 (150-450); RBC Distribution Width CV 14.6 % (11.6-14.6); Red Blood Count 4.83 M/mm3 (4.2-5.4); White Blood Count 7.4 K/mm3 (4.4-11.0)
[2021-06-14 09:09] LABS: International Normalized Ratio 2.6; Prothrombin Time (Protime)PT. 27.1 SECONDS (11.7-14.9)
[2021-06-14 09:20] LABS: AST(SGOT) 24 U/L (15-37); Alanine Aminotransfer ALT/SGPT 44 U/L (13-56); Albumin, Serum 2.8 g/dL (3.2-5.0); Alkaline Phosphatase 66 U/L (45-117); Anion Gap 6 (5-15); BUN 24 mg/dL (7-18); Calcium,Total 8.2 mg/dL (8.5-10.1); Chloride 105 mmol/L (98-107); Cholesterol 96 mg/dL (200); EST Glomerular Filtration Rate 75 mL/min (>60); Est Glom Filt Rate - Afr Amer 90 mL/min (>60); Estimated Creatinine Clearance 55.79 ml/min; Globulin 2.9 g/dL (2.2-4.2); Glucose 72 mg/dL (74-106); High Density Lipoprotein 29 mg/dL; Potassium 4.1 mmol/L (3.5-5.1); Protein, Total 5.7 g/dL (6.4-8.2); Sodium Level 136 mmol/L (136-145); Triglycerides 68 mg/dL; Very Low Density Lipoprotein 14 mg/dL (5-40)
[2021-06-14] MEDS: Lisinopril 10 MG Tablet PO (09:52)
[2021-06-14] MEDS: Metoprolol(XL)Succ 50 MG Tablet PO (09:52)
--- NOTE | 2021-06-14 11:49 | PN.CARD_ITS ---
Subjective Subjective The patient is awake and alert. She does states she feels somewhat better as she senses her heart rate to be slower and her breathing to be somewhat improved. Objective Data Vital Signs: Vital Signs Temp Pulse Resp BP Pulse Ox 97.5 F L 125 H 16 123/78 H 92 06/14/21 10:00 06/14/21 10:00 06/14/21 10:00 06/14/21 10:00 06/14/21 10:00 Oxygen Delivery Method Room Air Weight: 122 lb 9.232 oz Body Mass Index (BMI) 20.7 Intake & Output: Intake and Output for Last 24 Hours 06/12/21 06/13/21 06/14/21 23:59 23:59 23:59 Intake Total 1000 / 1200 350 / 350 Output Total 1600 / 1600 Balance 1000 / 0 -1250 / -1250 Lab / Micro Data Result Diagrams: 06/14/21 08:19 06/14/21 08:19 Labs: Laboratory Results - last 24 hr 06/13/21 14:30: WBC 8.9, RBC 5.13, Hgb 14.4, Hct 44.9, MCV 87.5, MCH 28.1, MCHC 32.1, RDW Std Deviation 47.1 H, RDW Coeff of Nicole 14.6, Plt Count 233, MPV 10.8, Immature Gran % (Auto) 0.400, Neut % (Auto) 73.3 H, Lymph % (Auto) 18.0 L, [place] % (Auto) 7.3, Eos % (Auto) 0.6, Baso % (Auto) 0.4, Absolute Neuts (auto) 6.5, Absolute Lymphs (auto) 1.60, Nucleated RBC % 0 06/13/21 14:30: PT 35.9 H, INR 3.7 06/13/21 14:30: Sodium 135 L, Potassium 4.3, Chloride 103, Carbon Dioxide 26.0, Anion Gap 6, BUN 27 H, Creatinine 0.98, Estim Creat Clear Calc 42.73, Est GFR (MDRD) Af Amer 72, Est GFR (MDRD) Non-Af 59 L, BUN/Creatinine Ratio 27.6 H, Glucose 101, Calcium 8.5, Troponin I High Sens 10.8, TSH 9.46 H 06/13/21 14:30: B-Natriuretic Peptide 2659.5 H 06/13/21 14:30: Magnesium 2.3 06/13/21 18:17: Troponin I High Sens 10.6 06/13/21 20:38: Troponin I High Sens 9.9 06/14/21 08:19: WBC 7.4, RBC 4.83, Hgb 13.7, Hct 42.4, MCV 87.8, MCH 28.4, MCHC 32.3, RDW Std Deviation 47.0 H, RDW Coeff of Nicole 14.6, Plt Count 180, MPV 10.7, Immature Gran % (Auto) 0.100, Neut % (Auto) 72.7 H, Lymph % (Auto) 16.3 L, [place] % (Auto) 8.9, Eos % (Auto) 1.5, Baso % (Auto) 0.5, Absolute Neuts (auto) 5.4, Absolute Lymphs (auto) 1.21, Nucleated RBC % 0 06/14/21 08:19: PT 27.1 H, INR 2.6 06/14/21 08:19: Sodium 136, Potassium 4.1, Chloride 105, Carbon Dioxide 25.0, Anion Gap 6, BUN 24 H, Creatinine 0.80, Estim Creat Clear Calc 55.79, Est GFR (MDRD) Af Amer 90, Est GFR (MDRD) Non-Af 75, BUN/Creatinine Ratio 30.0 H, Glucose 72 L, Calcium 8.2 L, Total Bilirubin 0.80, AST 24, ALT 44, Alkaline Phosphatase 66, Total Protein 5.7 L, Albumin 2.8 L, Globulin 2.9, Albumin/Globulin Ratio 1.0, Triglycerides 68, Cholesterol 96, LDL Cholesterol 53, VLDL Cholesterol 14, HDL Cholesterol 29 L, Free T4 1.60 H Cardiology Labs/Tests 06/13/21 14:30: WBC 8.9, RBC 5.13, Hgb 14.4, Hct 44.9, MCV 87.5, MCH 28.1, MCHC 32.1, Plt Count 233, MPV 10.8, Immature Gran % (Auto) 0.400, Neut % (Auto) 73.3 H, Lymph % (Auto) 18.0 L, [place] % (Auto) 7.3, Eos % (Auto) 0.6, Baso % (Auto) 0.4, Absolute Neuts (auto) 6.5, Nucleated RBC % 0 06/13/21 14:30: PT 35.9 H, INR 3.7 06/13/21 14:30: Sodium 135 L, Potassium 4.3, Chloride 103, Carbon Dioxide 26.0, Anion Gap 6, BUN 27 H, Creatinine 0.98, Est GFR (MDRD) Af Amer 72, Est GFR (MDRD) Non-Af 59 L, BUN/Creatinine Ratio 27.6 H, Glucose 101, Calcium 8.5 06/13/21 14:30: B-Natriuretic Peptide 2659.5 H 06/13/21 14:30: Magnesium 2.3 06/14/21 08:19: WBC 7.4, RBC 4.83, Hgb 13.7, Hct 42.4, MCV 87.8, MCH 28.4, MCHC 32.3, Plt Count 180, MPV 10.7, Immature Gran % (Auto) 0.100, Neut % (Auto) 72.7 H, Lymph % (Auto) 16.3 L, [place] % (Auto) 8.9, Eos % (Auto) 1.5, Baso % (Auto) 0.5, Absolute Neuts (auto) 5.4, Nucleated RBC % 0 06/14/21 08:19: PT 27.1 H, INR 2.6 06/14/21 08:19: Sodium 136, Potassium 4.1, Chloride 105, Carbon Dioxide 25.0, Anion Gap 6, BUN 24 H, Creatinine 0.80, Est GFR (MDRD) Af Amer 90, Est GFR (MDRD) Non-Af 75, BUN/Creatinine Ratio 30.0 H, Glucose 72 L, Calcium 8.2 L, Total Bilirubin 0.80, Triglycerides 68, Cholesterol 96, LDL Cholesterol 53, VLDL Cholesterol 14, HDL Cholesterol 29 L Rhythm: Atrial fibrillation Physical Exam Const alert, oriented x3, no apparent distress and healthy appearing Orientation / Consciousness: awake HEENT normocephalic, head/scalp atraumatic and hearing grossly normal bilaterally Eyes PERRL, EOMs intact bilaterally and conjunctivae normal Neck full ROM, supple and no JVD Chest inspection of chest normal Resp Auscultation: rales bilateral lower Cardio Rhythm: abnormal rhythm irregularly irregular Heart Sounds: S1 normal and S2 normal GI normal to inspection, nondistended, normoactive bowel sounds Extremity General Extremity: edema bilateral lower extremity Details: mild Skin no rashes or lesions noted Neuro oriented x3, CN's II-XII intact bilaterally and moves all extremities Psych mental status grossly normal Assessment & Plan Assessment/Plan (1) Atrial fibrillation with rapid ventricular response: PLAN: The patient has been in atrial fibrillation. It is unclear as to how long but based upon her history it has been for some time now. At the present time she will continue attempts at rate control therapy. She will continue anticoagulant therapy. She may need to be considered for a repeat attempt at synchronized biphasic DC cardioversion to regain sinus rhythm. However she may also need to be considered for a future EP consultation for possible EPS/RFA either of her atrial fibrillation or of her AV node with permanent pacemaker support. (2) CHF (congestive heart failure): QUALIFIERS: Heart failure type: unspecified Heart failure chronicity: acute Qualified Code(s): I50.9 - Heart failure, unspecified PLAN: She does have evidence of CHF. In the past this was thought to be with preserved ejection fraction. At the moment she will continue medical therapy. This will include her diuretic therapy. A follow-up echocardiogram is pending to reassess her ventricular size, wall motion, and systolic function. (3) HLD (hyperlipidemia): QUALIFIERS: Hyperlipidemia type: unspecified Qualified Code(s): E78.5 - Hyperlipidemia, unspecified PLAN: Her lipid labs can be reexamined. She will need treated appropriately. (4) HTN (hypertension): QUALIFIERS: Hypertension type: unspecified Qualified Code(s): I10 - Essential (primary) hypertension PLAN: Her blood will need to be followed with adjusting her medications accordingly. (5) Elevated TSH: PLAN: She does have a thyroid history. She will need continue evaluation care per internal medicine. Addt'l Comments This note was generated using a voice recognition system and there may be incorrect words, spelling or punctuation that were not noted when reviewing the office note prior to saving.
--- NOTE | 2021-06-14 11:57 | PN.HOSP_ITS ---
Documented by User: Anastacia Keen NP, [employer] FLOORPERSON-C 06/14/21 12:08 Subjective Subjective Patient seen and examined. Heart rate remains elevated. Patient denies chest pain, shortness of breath, palpitations. Objective Data Objective Data Vital Signs: Vital Signs Temp Pulse Resp BP Pulse Ox 97.5 F L 125 H 16 123/78 H 92 06/14/21 10:00 06/14/21 10:00 06/14/21 10:00 06/14/21 10:00 06/14/21 10:00 Oxygen Delivery Method Room Air Weight: 122 lb 9.232 oz Body Mass Index (BMI) 20.7 Intake & Output: Intake and Output for Last 24 Hours 06/12/21 06/13/21 06/14/21 23:59 23:59 23:59 Intake Total 1000 / 1200 350 / 350 Output Total 1600 / 1600 Balance 1000 / 0 -1250 / -1250 Lab / Micro Data Result Diagrams: 06/14/21 08:19 06/14/21 08:19 Labs: Laboratory Results - last 24 hr 06/13/21 14:30: WBC 8.9, RBC 5.13, Hgb 14.4, Hct 44.9, MCV 87.5, MCH 28.1, MCHC 32.1, RDW Std Deviation 47.1 H, RDW Coeff of Nicole 14.6, Plt Count 233, MPV 10.8, Immature Gran % (Auto) 0.400, Neut % (Auto) 73.3 H, Lymph % (Auto) 18.0 L, [place] % (Auto) 7.3, Eos % (Auto) 0.6, Baso % (Auto) 0.4, Absolute Neuts (auto) 6.5, Absolute Lymphs (auto) 1.60, Nucleated RBC % 0 06/13/21 14:30: PT 35.9 H, INR 3.7 06/13/21 14:30: Sodium 135 L, Potassium 4.3, Chloride 103, Carbon Dioxide 26.0, Anion Gap 6, BUN 27 H, Creatinine 0.98, Estim Creat Clear Calc 42.73, Est GFR (MDRD) Af Amer 72, Est GFR (MDRD) Non-Af 59 L, BUN/Creatinine Ratio 27.6 H, Glucose 101, Calcium 8.5, Troponin I High Sens 10.8, TSH 9.46 H 06/13/21 14:30: B-Natriuretic Peptide 2659.5 H 06/13/21 14:30: Magnesium 2.3 06/13/21 18:17: Troponin I High Sens 10.6 06/13/21 20:38: Troponin I High Sens 9.9 06/14/21 08:19: WBC 7.4, RBC 4.83, Hgb 13.7, Hct 42.4, MCV 87.8, MCH 28.4, MCHC 32.3, RDW Std Deviation 47.0 H, RDW Coeff of Nicole 14.6, Plt Count 180, MPV 10.7, Immature Gran % (Auto) 0.100, Neut % (Auto) 72.7 H, Lymph % (Auto) 16.3 L, [place] % (Auto) 8.9, Eos % (Auto) 1.5, Baso % (Auto) 0.5, Absolute Neuts (auto) 5.4, Absolute Lymphs (auto) 1.21, Nucleated RBC % 0 06/14/21 08:19: PT 27.1 H, INR 2.6 06/14/21 08:19: Sodium 136, Potassium 4.1, Chloride 105, Carbon Dioxide 25.0, Anion Gap 6, BUN 24 H, Creatinine 0.80, Estim Creat Clear Calc 55.79, Est GFR (MDRD) Af Amer 90, Est GFR (MDRD) Non-Af 75, BUN/Creatinine Ratio 30.0 H, Glucose 72 L, Calcium 8.2 L, Total Bilirubin 0.80, AST 24, ALT 44, Alkaline Phosphatase 66, Total Protein 5.7 L, Albumin 2.8 L, Globulin 2.9, Albumin/Globulin Ratio 1.0, Triglycerides 68, Cholesterol 96, LDL Cholesterol 53, VLDL Cholesterol 14, HDL Cholesterol 29 L, Free T4 1.60 H Physical Exam Const alert, oriented x3 and no apparent distress Orientation / Consciousness: awake, oriented to person, oriented to place and oriented to time HEENT normocephalic and moist oral mucous membranes Eyes PERRL, EOMs intact bilaterally and conjunctivae normal Neck no lymphadenopathy Resp normal respiratory effort and clear to auscultation bilaterally Cardio Cardio Narrative: A. fib, tachycardic Peripheral Pulses: pulses 2+ throughout GI normal to inspection, nondistended, normoactive bowel sounds, non-tender and non-distended Extremity normal to inspection Skin no rashes or lesions noted Lesions: no lesions Rashes: no rashes Trauma: no lacerations or abrasions Neuro CN's II-XII intact bilaterally, no focal motor deficits, no sensory deficits noted and deep tendon reflexes 2+ bilaterally Psych mental status grossly normal and affect normal Assessment & Plan Assessment/Plan (1) CHF (congestive heart failure): QUALIFIERS: Heart failure chronicity: acute Heart failure type: unspecified Qualified Code(s): I50.9 - Heart failure, unspecified PLAN: 1. Paroxysmal atrial fibrillation with RVR-cardiology following. On metoprolol, Coumadin. Received IV digoxin x1 this morning. Echocardiogram pending. Cardiology discussing cardioversion versus EP consult. 2. Acute heart failure, unknown subtype-suspect #1 contributing. BNP 2659. Chest x-ray with significant CHF. IV Lasix x2 doses. Strict I&O. Daily weight. Echocardiogram pending. 3. Hypothyroidism-TSH 9.4. T4 1.6. Increase Synthroid to 50 mcg daily with further repeat thyroid studies in 4 to 6 weeks. 4. Chronic anemia/iron deficiency-stable. 5. Hypertension-stable, continue lisinopril, metoprolol. 6. Hyperlipidemia-continue statin. 7. GERD-continue PPI. DVT prophylaxis- Coumadin This patient was seen by THAD Epperson under the supervision of Dr. Hansen. Documented by User: Dr. Te Hansen MD 06/14/21 13:08 Objective Data Lab / Micro Data Result Diagrams: 06/14/21 08:19 06/14/21 08:19 Assessment & Plan Addt'l Comments This patient was seen in conjunction with THAD Epperson . I have independently interviewed and examined the patient and reviewed pertinent h istorical, laboratory, and other data. Please refer to THAD Epperson note for details of this patient's presentation, findings, and recommendations. I have reviewed THAD Epperson note and concur with documented findings. In brief, patient is a 70-year-old lady with history of paroxysmal A. fib presented with heart fluttering as well as lightheadedness. Was found to be in A. fib with RVR admitted to monitored bed for subsequent management Physical Examination: GENERAL: cooperative HEENT: Atraumatic; EYES; Anicteric, Normal Conjunctiva NECK; supple, normal thyroid, RESPIRATORY: Diminished to auscultation CARDIOVASCULAR: Irregularly irregular GI: soft, normoactive bowel sounds, : No Renal angle tenderness; EXTREMITIES: No edema, no clubbing, MUSCULOSKELETAL: no muscle waisting NEURO: Awake; no lateralizing signs. SKIN: No Rash PSYCH; Flat affect Assessment: 1. Paroxysmal atrial fibrillation with RVR 2. Acute congestive heart failure with suspected present ejection fraction 3. Anemia of chronic disorder 4. Dyslipidemia 5. Hypothyroidism 6. Essential potential 7. GERD 8. DVT prophylaxis on Coumadin Recommendations: 1. I have discussed the results of my overview and impressions with the patient 2. Options for management were reviewed Charges/Coding Visit Charges Inpatient E&M: 56617 Subs Hosp L2
[2021-06-14] MEDS: Furosemide 40 MG/4 ML Vial IV (12:24)
[2021-06-14] MEDS: Digoxin 250 MCG/ML Ampul IV (12:24)
--- NOTE | 2021-06-14 16:35 | CASEMGMT ---
BRITTNEY DANG CASE PLANNER CM to room to meet with patient for initial transition planning/care coordination assessment. BRITTNEY DANG introduced self and role at [facility].? Pt voices understanding and consents to assessment at this time.? Pt resting in bed in no distress at this time.? Pt is A/O at this time and answers all questions appropriately.?? Care providers, pharmacy, and demographics verified/updated at this time. PCP: Dr Lei Aecvedo Specialists: Denies Preferred Pharmacy: [facility] in [place] Insurance: [facility] A/B Prescription Benefit:? None Living Will/HPOA:? Has LW and HPOA, who is her , [place] LNOK: , [place]. Son, Kervin Living Arrangements: Lives w/her in one-story home w/2 steps to enter. Independent w/ADL's. Does most of the home mgmt tasks. Manages her own meds/appts. Transportation: Pt states drives self and states no transportation concerns at this time.? also drives DME: ? Denies using any DME and denies needs.? HHC/SNF: No hx of either. Denies need for HHC or OP therapy. Pt wishes to return home and states has no concerns with going home at time of discharge.? CM to follow for any discharge planning/needs.? Pt voices no concerns/needs at this time.? Advised pt to ask for CM if any questions/concerns/needs arise.? Voices understanding. PLAN: ?Home Yvonne ESCOBAR RN, CM
[2021-06-14] MEDS: Metoprolol Tartrate 50 MG Tablet PO (22:03)
[2021-06-15 03:02] VITALS: PULSE 98
[2021-06-15 04:08] VITALS: BP 130/100; PULSE 70; RESP 18; TEMP 36.3; O2SAT 98
[2021-06-15] MEDS: Levothyroxine 50 MCG Tablet PO (05:21)
[2021-06-15 06:44] LABS: International Normalized Ratio 2.2; Prothrombin Time (Protime)PT. 23.6 SECONDS (11.7-14.9)
[2021-06-15 07:13] LABS: Anion Gap 7 (5-15); BUN 21 mg/dL (7-18); BUN/Creat Ratio 23.6 RATIO (10-20); Calcium,Total 8.1 mg/dL (8.5-10.1); Chloride 104 mmol/L (98-107); Creatinine, Serum 0.89 mg/dL (0.55-1.02); EST Glomerular Filtration Rate 66 mL/min (>60); Est Glom Filt Rate - Afr Amer 80 mL/min (>60); Estimated Creatinine Clearance 50.15 ml/min; Glucose 83 mg/dL (74-106); Potassium 4.4 mmol/L (3.5-5.1); Sodium Level 136 mmol/L (136-145)
[2021-06-15 08:01] VITALS: O2SAT 94
[2021-06-15 08:10] VITALS: PULSE 84
[2021-06-15 08:30] VITALS: BP 130/100; PULSE 84
[2021-06-15] MEDS: Metoprolol Tartrate 50 MG Tablet PO (08:30)
[2021-06-15] MEDS: Lisinopril 10 MG Tablet PO (08:30)
[2021-06-15 10:18] VITALS: BP 120/93; PULSE 91; RESP 16; TEMP 36.8; O2SAT 96
--- NOTE | 2021-06-15 11:59 | PCM.DC ---
Discharge Instructions Diet Discharge Diet: 8 Cup Fluid Restriction and 2000 mg Sodium Diet Activity Discharge Activity: Return to Normal Activity Dressing / Incision Call your doctor if you observe: Shortness of breath, Dizziness and Chest pain Follow Up Care Test Results: Test results from this visit will be discussed in further detail at your follow-up appointment, if applicable. Discharge Plan Admission Admit Date/Time: 06/13/21 17:00 Primary Reason for Your Visit: Atrial fibrillation Attending Provider: Te Hansen Primary Care Provider: Lei Acevedo Consulting Providers: Mikhail Pittman Discharge Orders/Prescriptions Prescriptions: New levothyroxine 50 mcg Tablet 50 mcg PO 0600 Qty: 30 RF: 0 lisinopril 10 mg Tablet 10 mg PO BID Qty: 60 RF: 0 metoprolol tartrate 50 mg Tablet 50 mg PO BID Qty: 60 RF: 0 furosemide [Lasix] 40 mg tablet 40 mg PO DAILY Qty: 30 RF: 0 potassium chloride [K-Tab] 20 mEq tablet extended release 20 meq PO DAILY Qty: 30 RF: 0 Continued warfarin 3 mg tablet 3 mg PO DAILY RF: 0 Discontinued metoprolol succinate 50 mg tablet extended release 24 hr 50 mg PO DAILY RF: 0 levothyroxine 25 mcg tablet 25 mcg PO DAILY RF: 0 lisinopril 10 mg tablet 10 mg PO DAILY RF: 0 Referrals / Follow Up: Mikhail Pittman MD [STAFF PHYSICIAN] - Within 2 Weeks (Office to refer to computer forensics technician) Lei Acevedo MD [Primary Care Provider] - In 1 Week Disposition Disposition (needs filled in before D/C Order can be placed): Home, Self Care
--- NOTE | 2021-06-15 12:20 | PCM.DC.SUM ---
Documented by User: Anastacia Keen NP, SURPLUS PROPERTY DISPOSAL AGENT-C 06/15/21 12:25 Providers Date of Admission: 06/13/21 Date of Discharge: 06/15/21 Primary Care Physician: Dr. Lei Acevedo MD Consultations 06/13/21 17:05 Consult: Cardiology Routine Consulting Provider: Mikhail Pittman Reason for Consult: CHF exac, PAF w/ RVR (was on flecainide, taken off per PCP, not seeing card EMERGENT Consult: No MD Notified: Yes Date Notified: 06/13/21 Time Notified: 16:58 Method of Notification: cortext Reason For Visit: AFIB RVR CHF Diagnosis Discharge Diagnosis (1) CHF (congestive heart failure): Status: Acute Code(s): I50.9 - Heart failure, unspecified Qualifiers: Heart failure chronicity: acute Heart failure type: unspecified Qualified Code(s): I50.9 - Heart failure, unspecified Medications at Discharge Home Medications warfarin 3 mg PO DAILY 06/13/21 furosemide [Lasix] 40 mg PO DAILY #30 tab 06/15/21 levothyroxine 50 mcg PO 0600 #30 tab 06/15/21 lisinopril 10 mg PO BID #60 tab 06/15/21 metoprolol tartrate 50 mg PO BID #60 tab 06/15/21 potassium chloride [K-Tab] 20 meq PO DAILY #30 tab 06/15/21 Hospital Course Operations None Procedures 2-D Echocardiogram Summary of Care Provided Minutes Spent on Discharge: 35 Hospital Course: Patient is a 70-year-old female admitted 06/13/2021 due to exertional dyspnea and palpitations. 1. Paroxysmal atrial fibrillation with RVR-cardiology consulted during admission. On metoprolol, Coumadin. Metoprolol increased to 50 mg twice daily. Rate controlled. INR therapeutic. Cardiology to refer patient to EP for further evaluation. Follow-up with cardiology within 2 weeks. 2. Acute heart failure with preserved ejection fraction-suspect #1 contributing. BNP 2659. Chest x-ray with significant CHF. IV Lasix during admission. Echocardiogram demonstrates an EF of 50%, mild to moderate mitral valve insufficiency, mild to moderate tricuspid valve insufficiency, mild pulmonic valve insufficiency. Discharged on Lasix 40 mg daily with potassium supplement. Instructed on daily weight, fluid and sodium restriction. Follow-up with cardiology as noted above. 3. Hypothyroidism-TSH 9.4. T4 1.6. Increase Synthroid to 50 mcg daily with further repeat thyroid studies in 4 to 6 weeks. 4. Chronic anemia/iron deficiency-stable. 5. Hypertension-stable, continue lisinopril, metoprolol. Lisinopril increased to 10 mg twice daily. 6. Hyperlipidemia-continue statin. 7. GERD-continue PPI. Physical Exam Const alert, oriented x3 and no apparent distress Orientation / Consciousness: awake, oriented to person, oriented to place and oriented to time HEENT normocephalic and moist oral mucous membranes Eyes PERRL, EOMs intact bilaterally and conjunctivae normal Neck no lymphadenopathy Resp normal respiratory effort and clear to auscultation bilaterally Cardio Cardio Narrative: A. fib, rate controlled Peripheral Pulses: pulses 2+ throughout GI normal to inspection, nondistended, normoactive bowel sounds, non-tender and non-distended Extremity normal to inspection Skin no rashes or lesions noted Lesions: no lesions Rashes: no rashes Trauma: no lacerations or abrasions Neuro CN's II-XII intact bilaterally, no focal motor deficits, no sensory deficits noted and deep tendon reflexes 2+ bilaterally Psych mental status grossly normal and affect normal Patient seen and examined prior to discharge. Physical assessment as noted above. Patient is stable for discharge with follow up recommendations as noted above. This patient was seen by THAD Epperson under the supervision of Dr. Hansen. Weight / BMI Weight Weight: 117 lb 1.6 oz Body Mass Index (BMI) 20.7 ABG / Lab / Microbiology Data Result Diagrams: 06/14/21 08:19 06/15/21 05:22 Laboratory: Laboratory Results - last 24 hr 06/15/21 05:22: Sodium 136, Potassium 4.4, Chloride 104, Carbon Dioxide 25.0, Anion Gap 7, BUN 21 H, Creatinine 0.89, Estim Creat Clear Calc 50.15, Est GFR (MDRD) Af Amer 80, Est GFR (MDRD) Non-Af 66, BUN/Creatinine Ratio 23.6 H, Glucose 83, Calcium 8.1 L 06/15/21 05:22: PT 23.6 H, INR 2.2 Radiography Diagnostic Testing: Radiology Impression Echocardiogram 06/14/21 05:55 Interpretation Summary The study was technically difficult. Left ventricular systolic function is lower limits of normal. The estimated ejection fraction is 50 %. The left atrium is moderately enlarged. The right atrium is moderately enlarged. Mild-Moderate (1-2+) mitral valve insufficiency. Mild to moderate (1-2+) tricuspid valve insufficiency. Mild diffuse aortic valve thickening. Mild (1+) pulmonic valve insufficiency. Small pericardial effusion. There are no echocardiographic indications of cardiac tamponade. Right ventricular systolic pressure estimated to be 29 mmHg. Unable to assess diastolic dysfunction. Ordering Physician: Mikhail Pittman Referring Physician: Lie Acevedo Performed By: Lory Goodwin RDCS, RVT D/C Instructions Discharge Diet: 8 Cup Fluid Restriction and 2000 mg Sodium Diet Call your doctor if you observe: Shortness of breath, Dizziness and Chest pain Meaningful Use Info Meaningful Use Diagnoses (Choose all that apply): CHF CHF KAMI/ARB ordered at discharge?: Yes Documented LVEF (%): 50 Discharge Plan Admission Admit Date/Time: 06/13/21 17:00 Primary Reason for Your Visit: Atrial fibrillation Attending Provider: Te Hansen Primary Care Provider: Lei Acevedo Consulting Providers: Mikhail Pittman Instructions Additional Instructions / Restrictions: Patient Problems: Altered Health Status related to Hospitalization Patient Goals: *Optimal Level of Health *Keep Appointments *Medication Compliance *Remain Safe Discharge Orders/Prescriptions Prescriptions: New levothyroxine 50 mcg Tablet 50 mcg PO 0600 Qty: 30 RF: 0 lisinopril 10 mg Tablet 10 mg PO BID Qty: 60 RF: 0 metoprolol tartrate 50 mg Tablet 50 mg PO BID Qty: 60 RF: 0 furosemide [Lasix] 40 mg tablet 40 mg PO DAILY Qty: 30 RF: 0 potassium chloride [K-Tab] 20 mEq tablet extended release 20 meq PO DAILY Qty: 30 RF: 0 Continued warfarin 3 mg tablet 3 mg PO DAILY RF: 0 Discontinued metoprolol succinate 50 mg tablet extended release 24 hr 50 mg PO DAILY RF: 0 levothyroxine 25 mcg tablet 25 mcg PO DAILY RF: 0 lisinopril 10 mg tablet 10 mg PO DAILY RF: 0 Referrals / Follow Up: Mikhail Pittman MD [STAFF PHYSICIAN] - Within 2 Weeks (Office to refer to customer relations advisor) Lei Acevedo MD [Primary Care Provider] - In 1 Week Disposition Disposition (needs filled in before D/C Order can be placed): Home, Self Care Documented by User: Dr. Te Hansen MD 06/15/21 13:03 Providers Date of Admission: 06/13/21 Reason For Visit: AFIB RVR CHF Medications at Discharge Home Medications warfarin 3 mg PO DAILY 06/13/21 furosemide [Lasix] 40 mg PO DAILY #30 tab 06/15/21 levothyroxine 50 mcg PO 0600 #30 tab 06/15/21 lisinopril 10 mg PO BID #60 tab 06/15/21 metoprolol tartrate 50 mg PO BID #60 tab 06/15/21 potassium chloride [K-Tab] 20 meq PO DAILY #30 tab 06/15/21 Hospital Course Operations None Summary of Care Provided Hospital Course: The patient was seen in conjunction with THAD Epperson . I have independently interviewed and examined the patient and reviewed pertinent historical, laboratory, and other data. Please refer to THAD Epperson note for details of this patient's presentation, findings, and recommendations. I have reviewed THAD Epperson note and concur with documented findings. In brief, patient is a 70-year-old lady with history of paroxysmal A. fib presented with heart fluttering as well as lightheadedness. Was found to be in A. fib with RVR admitted to monitored bed for subsequent management Assessment: 1. Paroxysmal atrial fibrillation with RVR 2. Acute congestive heart failure with suspected present ejection fraction 3. Anemia of chronic disorder 4. Dyslipidemia 5. Hypothyroidism 6. Essential potential 7. GERD 8. DVT prophylaxis on Coumadin Hospital course; ?As documented above ABG / Lab / Microbiology Data Result Diagrams: 06/14/21 08:19 06/15/21 05:22 Discharge Plan Admission Admit Date/Time: 06/13/21 17:00 Primary Reason for Your Visit: Atrial fibrillation Attending Provider: Te Hansen Primary Care Provider: Lei Acevedo Consulting Providers: Mikhail Pittman Instructions Additional Instructions / Restrictions: Patient Problems: Altered Health Status related to Hospitalization Patient Goals: *Optimal Level of Health *Keep Appointments *Medication Compliance *Remain Safe Discharge Orders/Prescriptions Prescriptions: New levothyroxine 50 mcg Tablet 50 mcg PO 0600 Qty: 30 RF: 0 lisinopril 10 mg Tablet 10 mg PO BID Qty: 60 RF: 0 metoprolol tartrate 50 mg Tablet 50 mg PO BID Qty: 60 RF: 0 furosemide [Lasix] 40 mg tablet 40 mg PO DAILY Qty: 30 RF: 0 potassium chloride [K-Tab] 20 mEq tablet extended release 20 meq PO DAILY Qty: 30 RF: 0 Continued warfarin 3 mg tablet 3 mg PO DAILY RF: 0 Discontinued metoprolol succinate 50 mg tablet extended release 24 hr 50 mg PO DAILY RF: 0 levothyroxine 25 mcg tablet 25 mcg PO DAILY RF: 0 lisinopril 10 mg tablet 10 mg PO DAILY RF: 0 Referrals / Follow Up: Mikhail Pittman MD [STAFF PHYSICIAN] - Within 2 Weeks (Office to refer to customer relations advisor) Lei Acevedo MD [Primary Care Provider] - In 1 Week Disposition Disposition (needs filled in before D/C Order can be placed): Home, Self Care Charges/Coding Visit Charges Inpatient E&M: 42190 Disch Hosp Hospital Course Consultations Consultations: Consultations 06/13/21 17:05 Consult: Cardiology Routine Consulting Provider: Mikhail Pittman Reason for Consult: CHF exac, PAF w/ RVR (was on flecainide, taken off per PCP, not seeing card EMERGENT Consult: No MD Notified: Yes Date Notified: 06/13/21 Time Notified: 16:58 Method of Notification: cortext Operations None
--- NOTE | 2021-06-15 12:40 | PCM.PN.CARD ---
Subjective Subjective The patient is awake and alert. She states she feels much better than she did when she arrived at the hospital. She has not sensing her rapid heart rate. She states her breathing is markedly improved as is her lower extremity peripheral pitting edema. Objective Data Vital Signs: Vital Signs Temp Pulse Resp BP Pulse Ox 98.2 F 91 16 120/93 H 96 06/15/21 10:18 06/15/21 10:18 06/15/21 10:18 06/15/21 10:18 06/15/21 10:18 Oxygen Delivery Method Room Air Weight: 117 lb 1.6 oz Body Mass Index (BMI) 20.7 Intake & Output: Intake and Output for Last 24 Hours 06/13/21 06/14/21 06/15/21 23:59 23:59 23:59 Intake Total 1000 / 1200 1190 / 1190 Output Total 4700 / 4700 Balance 1000 / 0 -3510 / -3510 Lab / Micro Data Result Diagrams: 06/14/21 08:19 06/15/21 05:22 Labs: Laboratory Results - last 24 hr 06/15/21 05:22: Sodium 136, Potassium 4.4, Chloride 104, Carbon Dioxide 25.0, Anion Gap 7, BUN 21 H, Creatinine 0.89, Estim Creat Clear Calc 50.15, Est GFR (MDRD) Af Amer 80, Est GFR (MDRD) Non-Af 66, BUN/Creatinine Ratio 23.6 H, Glucose 83, Calcium 8.1 L 06/15/21 05:22: PT 23.6 H, INR 2.2 Cardiology Labs/Tests 06/15/21 05:22: Sodium 136, Potassium 4.4, Chloride 104, Carbon Dioxide 25.0, Anion Gap 7, BUN 21 H, Creatinine 0.89, Est GFR (MDRD) Af Amer 80, Est GFR (MDRD) Non-Af 66, BUN/Creatinine Ratio 23.6 H, Glucose 83, Calcium 8.1 L 06/15/21 05:22: PT 23.6 H, INR 2.2 Rhythm: Atrial fibrillation Radiography Diagnostic Testing: Radiology Impression Echocardiogram 06/14/21 05:55 Interpretation Summary The study was technically difficult. Left ventricular systolic function is lower limits of normal. The estimated ejection fraction is 50 %. The left atrium is moderately enlarged. The right atrium is moderately enlarged. Mild-Moderate (1-2+) mitral valve insufficiency. Mild to moderate (1-2+) tricuspid valve insufficiency. Mild diffuse aortic valve thickening. Mild (1+) pulmonic valve insufficiency. Small pericardial effusion. There are no echocardiographic indications of cardiac tamponade. Right ventricular systolic pressure estimated to be 29 mmHg. Unable to assess diastolic dysfunction. Ordering Physician: Mikhail Pittman Referring Physician: Lei Acevedo Performed By: Lory Goodwin, BENJAMINCS, RVT Physical Exam Const alert, oriented x3, no apparent distress and healthy appearing Orientation / Consciousness: awake HEENT normocephalic, head/scalp atraumatic and hearing grossly normal bilaterally Eyes PERRL, EOMs intact bilaterally and conjunctivae normal Neck full ROM, supple and no JVD Chest inspection of chest normal Resp clear to auscultation bilaterally Cardio Rhythm: abnormal rhythm irregularly irregular Heart Sounds: S1 normal and S2 normal GI normal to inspection, nondistended, normoactive bowel sounds Extremity no pedal edema Skin no rashes or lesions noted Neuro oriented x3, CN's II-XII intact bilaterally and moves all extremities Psych mental status grossly normal Assessment & Plan Assessment/Plan (1) Atrial fibrillation with rapid ventricular response: PLAN: The patient has been in atrial fibrillation. It is unclear as to how long but based upon her history it has been for some time now. At the present time she will continue attempts at rate control therapy. She will continue anticoagulant therapy. She may need to be considered for a repeat attempt at synchronized biphasic DC cardioversion to regain sinus rhythm. However she may also need to be considered for a future EP consultation for possible EPS/RFA either of her atrial fibrillation or of her AV node with permanent pacemaker support. The options were discussed with her. At the present time she states she would prefer a [facility] six mile run EP opinion. (2) CHF (congestive heart failure): QUALIFIERS: Heart failure type: unspecified Heart failure chronicity: acute Qualified Code(s): I50.9 - Heart failure, unspecified PLAN: She does have evidence of CHF. In the past this was thought to be with preserved ejection fraction. At the moment she will continue medical therapy. This will include her diuretic therapy. Her echocardiogram is as noted. (3) HLD (hyperlipidemia): QUALIFIERS: Hyperlipidemia type: unspecified Qualified Code(s): E78.5 - Hyperlipidemia, unspecified PLAN: Her lipid labs can be reexamined. She will need treated appropriately. (4) HTN (hypertension): QUALIFIERS: Hypertension type: unspecified Qualified Code(s): I10 - Essential (primary) hypertension PLAN: Her blood will need to be followed with adjusting her medications accordingly. (5) Elevated TSH: PLAN: She does have a thyroid history. She will need continue evaluation care per internal medicine. Addt'l Comments The patient's case was discussed and reviewed with the patient and the [facility] staff. This note was generated using a voice recognition system and there may be incorrect words, spelling or punctuation that were not noted when reviewing the office note prior to saving.
--- NOTE | 2021-06-16 14:17 | CASEMGMT ---
RN CM Discharge Follow-up Phone Call: GIGI: Rosita Strata: 3 Call Date: 06/16/21 Discharge Date: 06/15/21 Time of Call: [id number] Duration: 1 min Admitting Diagnosis: Afib RVR CHF RN CM attempted to complete follow-up phone call after recent hospitalization. No answer, voice message left with return contact information.
== END 2021-06-15 14:02 | disposition home or self-care (01) | DRG 308 ==
LOC: ED 16:39 → PCU 17:05
PROVIDERS: Internal Medicine Cardiovascular Disease; Nurse Practitioner Family; Admitting Provider Family Medicine; Emergency Provider Emergency Medicine; PCP Family Medicine; Visit Provider Internal Medicine
DX: I48.0 Paroxysmal atrial fibrillation (principal); I50.33 Acute on chronic diastolic (congestive) heart failure; I11.0 Hypertensive heart disease with heart failure; E03.9 Hypothyroidism, unspecified; E78.5 Hyperlipidemia, unspecified; D63.8 Anemia in other chronic diseases classified elsewhere; D50.9 Iron deficiency anemia, unspecified; I25.2 Old myocardial infarction; I37.1 Nonrheumatic pulmonary valve insufficiency; K21.9 Gastro-esophageal reflux disease without esophagitis; Z79.01 Long term (current) use of anticoagulants; Z79.82 Long term (current) use of aspirin; Z79.899 Other long term (current) drug therapy; Z87.891 Personal history of nicotine dependence
CPT/HCPCS: 36415; 71045; 80048; 80053; 80061; 83735; 83880; 84439; 84443; 84484; 85025; 85610; 93005; 93306; 97802; 99251; 99285; J7030; A4216; G0463; J1940

== ENCOUNTER 2023-03-06 12:00 | Emergency (ER) | payer MEDICARE, SELFPAY ==
[2023-03-06] VITALS (8 sets, daily range): BP systolic 100–161; BP diastolic 71–125; PULSE 124–180; RESP 12–28; TEMP 35.9–36.6; O2SAT 93–100; BMI 25.1
--- NOTE | 2023-03-06 12:16 | RAD_ITS ---
INDICATION: Palpitations EXAMINATION/TECHNIQUE: X-RAY - XR Chest 1 View COMPARISON: June 23, 2021 FINDINGS: LINES/DEVICES: None. LUNGS: There are stable prominent interstitial markings. There is no new focal consolidation. MEDIASTINUM AND CARDIOVASCULAR STRUCTURES: There is stable cardiomegaly. Central airways and mediastinal contour are unremarkable. BONES AND SOFT TISSUES: Unremarkable. RAD/Chest 1 View (Portable) IMPRESSION: No radiographic evidence of acute cardiopulmonary disease. Electronically Signed: Frida Grace MD at 13:08 EDT ,
--- NOTE | 2023-03-06 12:17 | EKG12_ITS ---
Test Reason : PALPITATIONS Blood Pressure : / mmHG Vent. Rate : 149 BPM Atrial Rate : 149 BPM P-R Int : 094 ms QRS Dur : 076 ms QT Int : 326 ms P-R-T Axes : 000 086 110 degrees QTc Int : 513 ms Sinus tachycardia with short ID Minimal voltage criteria for LVH, may be normal variant ( Sokolow-Escobar ) Septal infarct , age undetermined Abnormal ECG Confirmed by CAIN SANTIAGO, RAMIN ([id number]), electronic news gathering editor DANIA SERRANO ([id number]) on 03/08/2023 2:43:06 PM Referred By: DEMARIO Confirmed By:MOLINA BARLOW MD
--- NOTE | 2023-03-06 12:18 | EDS_ITS ---
HPI History of Present Illness Chief Complaint: Palpitations Informant: patient Onset/Context/Timing Onset: Weeks (1) Context: Sudden Onset Timing: Continuous Quality: Weakness Location: Generalized Worsened by: Exertion Relieved by: Rest Narrative Narrative: Patient presents with palpitations that have been constant for the past week. Patient states she has a history of paroxysmal atrial fibrillation. Patient states she felt like she went into atrial fibrillation last week. Patient states she feels weak all over. Patient states it is worse with any exertion. Patient states it is better with rest. Patient denies any chest pain. Patient does admit to a mild cough. Patient states she normally gets a cough when she goes into atrial fibrillation. Patient denies any shortness of breath. Patient denies any nausea or vomiting. Prior similar symptoms: Yes PFSH PFSH Medical History Atrial fibrillation with rapid ventricular response CHF (congestive heart failure) CHF (congestive heart failure) Elevated TSH Former tobacco use History of goiter HLD (hyperlipidemia) HTN (hypertension) Paroxysmal atrial fibrillation Thyroid disorder Home Medications warfarin 3 mg tablet 3 mg PO DAILY BLOOD THINNER 06/13/21 [History Last Taken 06/12/21] furosemide 40 mg tablet (Lasix) 40 mg PO DAILY #30 tabs 06/15/21 [Rx Last Taken Unknown] levothyroxine 50 mcg tablet 50 mcg PO 0600 #30 tabs 06/15/21 [Rx Last Taken Unknown] lisinopril 10 mg tablet 10 mg PO BID #60 tabs 06/15/21 [Rx Last Taken Unknown] metoprolol tartrate 50 mg tablet 50 mg PO BID #60 tabs 06/15/21 [Rx Last Taken Unknown] potassium chloride 20 mEq tablet,extended release (K-Tab) 20 meq PO DAILY #30 tabs 06/15/21 [Rx Last Taken Unknown] Allergy/AdvReac Type Severity Reaction Status Date / Time No Known Allergies Allergy Verified 03/06/23 12:03 Family History (Updated 06/13/21 @ 16:[address] Diana Deshpande MD) Mother Colon cancer Father Heart disease Myocardial infarction Surgical History S/P appendectomy S/P cholecystectomy S/P partial thyroidectomy Social History household members: spouse Smoking Status: Former smoker how long ago did patient quit smoking: Quit 2015, 1/2 ppd since [age]y 20s. alcohol intake: never substance use type: does not use ROS ROS ED Constitutional Constitutional ED: Denies chills or fever(s) Eyes Eyes: Denies blurry vision or change in vision ENT ENT ED: Denies rhinorrhea or sore throat Cardiovascular Cardiovascular: Reports palpitations; Denies chest pain Respiratory/Chest Respiratory/Chest: Reports cough; Denies dyspnea Gastrointestinal Gastrointestinal: Denies nausea or vomiting Genitourinary Genitourinary ED: Denies dysuria or hematuria Musculoskeletal Musculoskeletal: Denies back pain or neck pain Integumentary Denies abscess or rash Neurologic Neurologic: Denies headache(s) or weakness Allergic/Immunologic Allergic/Immunologic ED: Denies mouth swelling or urticaria EXAM Physical Exam Const Vital Signs: 03/06/23 12:02 03/06/23 12:44 03/06/23 13:02 Temperature 96.7 F L 98 F Temperature Source Temporal Pulse Rate 151 H 180 H Pulse Rate [1 (Initial Baseline)] 178 H Pulse Rate [2] 174 H Pulse Rate [3] 124 H Respiratory Rate 18 28 H Respiratory Rate [1 (Initial Baseline)] 22 H Respiratory Rate [2] 12 Respiratory Rate [3] 20 H Blood Pressure 161/119 H 145/114 H Blood Pressure [1 (Initial Baseline)] 139/122 H Blood Pressure [2] 135/104 H Blood Pressure [3] 146/125 H Blood Pressure Mean 133 Pulse Ox 100 98 Oxygen Delivery Method Room Air Room Air Oxygen Delivery Method [1 (Initial Baseline)] Nasal Cannula Oxygen Delivery Method [2] Non-Rebreather Oxygen Delivery Method [3] Non-Rebreather Oxygen Flow Rate (L/min) [1 (Initial Baseline)] 4 Oxygen Flow Rate (L/min) [2] 15 Oxygen Flow Rate (L/min) [3] 15 03/06/23 13:17 03/06/23 13:22 03/06/23 12:00 Temperature Temperature Source Pulse Rate 178 H Pulse Rate [1 (Initial Baseline)] Pulse Rate [2] Pulse Rate [3] Respiratory Rate Respiratory Rate [1 (Initial Baseline)] Respiratory Rate [2] Respiratory Rate [3] Blood Pressure Blood Pressure [1 (Initial Baseline)] Blood Pressure [2] Blood Pressure [3] Blood Pressure Mean Pulse Ox Oxygen Delivery Method Room Air Room Air Oxygen Delivery Method [1 (Initial Baseline)] Oxygen Delivery Method [2] Oxygen Delivery Method [3] Oxygen Flow Rate (L/min) [1 (Initial Baseline)] Oxygen Flow Rate (L/min) [2] Oxygen Flow Rate (L/min) [3] 03/06/23 13:27 03/06/23 14:02 Temperature Temperature Source Pulse Rate 124 H Pulse Rate [1 (Initial Baseline)] Pulse Rate [2] Pulse Rate [3] Respiratory Rate 16 Respiratory Rate [1 (Initial Baseline)] Respiratory Rate [2] Respiratory Rate [3] Blood Pressure 100/71 Blood Pressure [1 (Initial Baseline)] Blood Pressure [2] Blood Pressure [3] Blood Pressure Mean 80 Pulse Ox 96 Oxygen Delivery Method Room Air Room Air Oxygen Delivery Method [1 (Initial Baseline)] Oxygen Delivery Method [2] Oxygen Delivery Method [3] Oxygen Flow Rate (L/min) [1 (Initial Baseline)] Oxygen Flow Rate (L/min) [2] Oxygen Flow Rate (L/min) [3] Positive well nourished and well developed General Appearance ED: well developed and NAD HEENT Reports moist mucous membranes Neck supple and no JVD Resp normal respiratory effort and clear to auscultation bilaterally Cardio regular rhythm Rate: tachycardic GI normal to inspection, nondistended, normoactive bowel sounds and non-tender Palpation: soft Extremity normal to inspection General Extremety ED: Negative for edema or tenderness General Extremity: Negative for edema Neuro oriented x3, CN's II-XII intact bilaterally and no sensory deficits noted Sensorium / Orientation: alert Motor Exam: strength 5/5 throughout Psych mental status grossly normal Skin no rashes or lesions noted MDM MDM MDM Narrative Medical decision making narrative: Differential diagnosis includes cardiac dysrhythmia, cardiac ischemia, pneumonia, hypothyroidism, hyperthyroidism, and electrolyte abnormality. EKG will be obtained to assess for cardiac dysrhythmia and cardiac ischemia. Chest x-ray will be obtained to assess for pneumonia. CBC will be obtained to assess for leukocytosis and anemia. Basic metabolic profile will be obtained to assess for electrolyte abnormality and renal function. TSH will be obtained to assess for hypothyroidism and hyperthyroidism. High-sensitivity troponin will be obtained to assess for cardiac ischemia. Lab Data Attestation: I reviewed the patient's lab results. Lab results narrative: CBC was reviewed. There is a mild leukocytosis of 11.7. Hemoglobin was stable at 15.3 and hematocrit is 46.2. Basic metabolic profile was reviewed. BUN was 41 and creatinine was 1.2. The remainder was within normal limits. High- sensitivity troponin was reviewed and was normal at 35. PT with INR and PTT were reviewed. Pro time was 22.8 and INR is 2.0. PTT was normal at 31.8. TSH was reviewed and was elevated at 10.6. Labs: Laboratory Results - last 24 hr 03/06/23 03/06/23 03/06/23 12:15 12:15 12:15 WBC 11.7 H RBC 4.86 Hgb 15.3 H Hct 46.2 MCV 95.1 MCH 31.5 MCHC 33.1 RDW Std Deviation 50.9 H RDW Coeff of Nicole 14.9 H Plt Count 255 MPV 10.5 Immature Gran % (Auto) 1.000 H Neut % (Auto) 79.1 H Lymph % (Auto) 12.1 L Fisher % (Auto) 7.3 Eos % (Auto) 0.2 Baso % (Auto) 0.3 Absolute Neuts (auto) 9.3 H Absolute Lymphs (auto) 1.42 Nucleated RBC % 0.3 PT 22.8 H INR 2.0 APTT 31.8 Sodium 138 Potassium 4.5 Chloride 103 Carbon Dioxide 23.0 Anion Gap 12 BUN 41 H Creatinine 1.20 H Estim Creat Clear Calc 37.01 Est GFR (MDRD) Af Amer 56 L Est GFR (MDRD) Non-Af 47 L BUN/Creatinine Ratio 34.2 H Glucose 107 H Calcium 8.9 Magnesium 2.2 Troponin I High Sens 35 TSH 10.60 H Radiography Chest X-Ray - ED: 1 View, Read by ED Physician, Read by Radiologist and No Acute Disease Diagnostic Testing: Clinical Impression(s) from Imaging Studies Chest X-Ray 03/06/23 12:16 IMPRESSION: No radiographic evidence of acute cardiopulmonary disease. Electronically Signed: Frida Grace MD at 13:08 EDT , Portable 1 view chest x-ray was obtained. On my independent interpretation, lung fofana are clear. There is normal cardiac silhouette. Bony thorax is normal. There is no acute process noted. Radiologist also interpreted the x- ray and agrees. EKG Initial EKG: Attestation: I personally reviewed and interpreted this EKG as follows: Interpretation: Atrial Flutter (149) and Non-Specific ST Changes Comments: EKG was obtained. On my independent interpretation, it shows atrial flutter with a rate of 149. There is left ventricular hypertrophy noted. ID interval, QRS interval, and QTc intervals are within normal limits. [place] is normal. Prior EKG tracings: available for review Prior: Unchanged (06/14/2021) Follow-up EKG: Attestation: I personally reviewed and interpreted this EKG as follows: Interpretation: Sinus Tachycardia (125) and Non-Specific ST Changes Prior EKG tracings: available for review Prior: Unchanged Treatment and Re-Evaluation :: Patient was given 6 mg of adenosine. Patient had no change with this. Patient was given 12 mg of adenosine. Patient slowed her heart rate down and the und erlying rhythm was atrial fibrillation. Patient returned to atrial fibrillation/flutter with a rate of 150 after this. Patient was advised of the need for electrical cardioversion. Patient understands. Patient has done this before. Informed consent was obtained. Patient was given the opportunity ask questions. Patient had no further questions. Patient will be sedated for this. Patient was placed on continuous cardiac and pulse oximeter monitors. Patient was placed on nasal cannula oxygen. Patient was given a total dose of 60 mg of propofol. Patient was given synchronized cardioversion at 150 J with no improvement, 200 J with no improvement, 250 J with no improvement, 300 J with no improvement, 360 J with no improvement, and 360 J again. Patient converted to a sinus rhythm after this. Patient was noted to be in a sinus tachycardia. Patient oxygen level did start to drop. Patient was placed on nonrebreather mask. Patient oxygen level improved. Patient woke up without any difficulties. Patient was advised of the need for multiple shocks for cardioversion. Patient was advised that her TSH was high which means that her thyroid levels are low. Patient was given a dose of 50 mcg of levothyroxine 50 mcg at home this morning. Patient states that her primary care physician recently increased her levothyroxine to 88 mcg daily. Patient was instructed to continue this dose. Patient was instructed to follow-up with her primary care physician in 3 to 5 days. Patient was instructed return if worse in any way. Patient was instructed to continue her Coumadin as previously prescribed. Patient understands and is agreeable with the plan. All questions were answered. Procedures Procedural Sedation 1 (Initial Baseline): Consent Signed: Yes Any Problems With Anesthesia: No You/Your family experience fever (hyperthermia) w/anesthesia: No Sedation medication: Propofol Dose: 60 Route: IV Maliampati Score: Class II ASA Classification: II Other Procedures Procedure(s): Under procedural sedation, the patient was cardioverted with 150 J, 200 J, 250 J, 300 J, 360 J, and a repeat 360 J. Patient converted to a sinus tachycardia after this. Patient tolerated the procedure well. Discharge Plan Triage Chief Complaint: Palpitations ED Provider: Medhat Phillips Dx/Rx/DC Orders Clinical Impression: Atrial flutter with rapid ventricular response, Hypothyroidism Instructions: ED AFIB, ED Palpitations Prescriptions: No Action warfarin 3 mg tablet 3 mg PO DAILY Label Comments: TAKE 1 TABLET BY MOUTH ONCE DAILY DIRECTED levothyroxine 50 mcg Tablet 50 mcg PO 0600 Qty: 30 0RF lisinopril 10 mg Tablet 10 mg PO BID Qty: 60 0RF metoprolol tartrate 50 mg Tablet 50 mg PO BID Qty: 60 0RF furosemide [Lasix] 40 mg tablet 40 mg PO DAILY Qty: 30 0RF potassium chloride [K-Tab] 20 mEq tablet extended release 20 meq PO DAILY Qty: 30 0RF Primary Care Provider: Lei Acevedo Referrals: Lei Acevedo MD [Primary Care Provider] - 3-5 Days Disposition Disposition: Home, Self Care
[2023-03-06] MEDS: Adenosine 6 MG/2 ML Syringe IV (12:25)
[2023-03-06] MEDS: Adenosine 6 MG/2 ML Syringe 12 MG IV (12:34)
[2023-03-06 12:51] LABS: Absolute Lymphocyte Count 1.42 X10^3/uL (0.83-4.51); Absolute Neutrophil Count 9.3 X10^3/uL (2.0-7.7); Basophil# 0.03 X10^3/uL; Basophil% 0.3 % (0-1); Eosinophil# 0.02 X10^3/uL; Eosinophils% 0.2 % (0-5); Hematocrit 46.2 % (37-47); Hemoglobin 15.3 g/dL (12.0-15.0); Lymphocyte # 1.42 X10^3/ul (0.83-4.51); Lymphocyte % 12.1 % (19-41); Mean Corp Hgb Conc 33.1 g/dL (32-36); Mean Corpuscular Hgb 31.5 pg (27.0-32.0); Mean Corpuscular Volume 95.1 fL (81-99); Mean Platelet Vol. 10.5 fl (6.2-12.0); Monocyte# 0.85 X10^3/uL; Monocyte% 7.3 % (0-10); NRBC Flagged by Analyzer 0.3 % (0-5); Neutrophil # 9.25 X10^3/uL (2.7-7.7); Neutrophil % 79.1 % (47-70); Platelet Count 255 K/mm3 (150-450); RBC Distribution Width CV 14.9 % (11.6-14.6); RBC Distribution Width SD 50.9 fl (35.1-43.9); Red Blood Count 4.86 M/mm3 (4.2-5.4); White Blood Count 11.7 K/mm3 (4.4-11.0)
[2023-03-06 12:55] LABS: Partial Thromboplast Time 31.8 Seconds (24.1-36.2); Prothrombin Time (Protime)PT. 22.8 SECONDS (11.7-14.9)
[2023-03-06] MEDS: Propofol 200 MG/20 ML Vial IV BOLUS (13:02)
[2023-03-06 13:10] LABS: Anion Gap 12 (5-15); BUN 41 mg/dL (7-18); BUN/Creat Ratio 34.2 RATIO (10-20); Calcium,Total 8.9 mg/dL (8.5-10.1); Chloride 103 mmol/L (98-107); EST Glomerular Filtration Rate 47 mL/min (>60); Est Glom Filt Rate - Afr Amer 56 mL/min (>60); Estimated Creatinine Clearance 37.01 ml/min; Glucose 107 mg/dL (74-106); Magnesium 2.2 mg/dL (1.6-2.6); Potassium 4.5 mmol/L (3.5-5.1); Sodium Level 138 mmol/L (136-145); Troponin-I HS 35 pg/mL (3.0-54.0)
--- NOTE | 2023-03-06 13:15 | EKG12_ITS ---
Test Reason : Blood Pressure : / mmHG Vent. Rate : 125 BPM Atrial Rate : 125 BPM P-R Int : 000 ms QRS Dur : 092 ms QT Int : 358 ms P-R-T Axes : 000 084 083 degrees QTc Int : 516 ms Sinus tachycardia Nonspecific ST abnormality Abnormal ECG When compared with ECG of 06-MAR-2023 12:12, MANUAL COMPARISON REQUIRED, DATA IS UNCONFIRMED Confirmed by CAIN SANTIAGO, RAMIN ([id number]), editor sound DANIA SERRANO ([id number]) on 03/09/2023 1:31:09 PM Referred By: Confirmed By:MOLINA BARLOW MD
--- NOTE | 2023-03-06 13:16 | EKG12_ITS ---
Test Reason : Blood Pressure : / mmHG Vent. Rate : 125 BPM Atrial Rate : 125 BPM P-R Int : 088 ms QRS Dur : 086 ms QT Int : 342 ms P-R-T Axes : 000 075 076 degrees QTc Int : 493 ms Sinus tachycardia with short [place] Nonspecific ST abnormality Abnormal ECG Confirmed by CAIN SANTIAGO, RAMIN ([id number]), graphic editor DANIA SERRANO ([id number]) on 03/08/2023 2:45:11 PM Referred By: Confirmed By:MOLINA BARLOW MD
--- NOTE | 2023-03-06 13:37 | ED.RN ---
Cardioverted at 1350 @ 150J, 16183 @ 200J, 1306 @ 250J, 1307 @ 300J, 1308 @ 360J, and 1310 @ 360J
[2023-03-06] MEDS: Levothyroxine 50 MCG Tablet PO (14:00)
== END 2023-03-06 14:28 | disposition home or self-care (01) ==
PROVIDERS: Emergency Provider Emergency Medicine; PCP Family Medicine; Visit Provider Emergency Medicine
DX: I48.92 Unspecified atrial flutter (principal); I11.0 Hypertensive heart disease with heart failure; I50.9 Heart failure, unspecified; I48.0 Paroxysmal atrial fibrillation; Z87.891 Personal history of nicotine dependence; E78.5 Hyperlipidemia, unspecified; Z79.01 Long term (current) use of anticoagulants; E03.9 Hypothyroidism, unspecified
CPT/HCPCS: 71045; 80048; 83735; 84443; 84484; 85025; 85610; 85730; 92960; 93005; 96361; 96374; 99152; 99283; J7030; A4216; J0153

== ENCOUNTER 2023-05-02 00:03 | Inpatient (IN) | payer MEDICARE, SELFPAY ==
[2023-05-02] VITALS (41 sets, daily range): BP systolic 78–152; BP diastolic 10–115; PULSE 55–150; RESP 16–30; TEMP 35.6–36.7; O2SAT 92–100; BMI 20.9
--- NOTE | 2023-05-02 01:58 | EKG12_ITS ---
Test Reason : DIZZINESS Blood Pressure : / mmHG Vent. Rate : 054 BPM Atrial Rate : 054 BPM P-R Int : 142 ms QRS Dur : 090 ms QT Int : 502 ms P-R-T Axes : 085 094 102 degrees QTc Int : 476 ms Sinus bradycardia Rightward axis Biventricular hypertrophy T wave abnormality, consider anterolateral ischemia Prolonged QT Abnormal ECG Confirmed by CAIN SANTIAGO, RAMIN ([id number]), editor magazine DANIA SERRANO ([id number]) on 05/05/2023 11:39:42 AM Referred By: DEMARIO Confirmed By:MOLINA BARLOW MD
--- NOTE | 2023-05-02 02:00 | CT_ITS ---
INDICATION: Stroke EXAMINATION: CT BRAIN - CT Head or Brain W/O Contrast Injection TECHNIQUE: Multiple axial images were obtained of the head with sagittal and coronal reconstructed images. Individualized dose optimization techniques were used for this CT. IV contrast dosage and agent: None. COMPARISON: None. FINDINGS: BRAIN PARENCHYMA: No evidence of an acute infarct or intracranial hemorrhage. No evidence of a mass. CSF SPACES: Mild to moderate cerebral atrophy, most prominent in the frontal lobes. CALVARIUM, SKULL BASE, PARANASAL SINUSES AND MASTOID AIR CELLS: No fracture. Mastoid air cells are clear. Visualized paranasal sinuses are unremarkable. ORBITS: The globes, extraocular muscles, optic nerves and retrobulbar fat are unremarkable. CT/Brain/Head without Contrast IMPRESSION: No acute intracranial abnormality. Electronically Signed: Ramy Saldivar DO at 2:47 EDT ,
--- NOTE | 2023-05-02 02:20 | RAD_ITS ---
INDICATION: Weakness EXAMINATION/TECHNIQUE: X-RAY - XR Chest 1 View COMPARISON: 03/06/2023. FINDINGS: LINES/DEVICES: None. LUNGS: No consolidation or evidence of an effusion. No evidence of edema or a pneumothorax. MEDIASTINUM AND CARDIOVASCULAR STRUCTURES: Stable cardiomegaly. Mediastinum is unremarkable. BONES AND SOFT TISSUES: No acute abnormality. RAD/Chest 1 View (Portable) IMPRESSION: Stable cardiomegaly with no evidence of acute pulmonary disease. Electronically Signed: Ramy Saldivar DO at 2:48 EDT ,
[2023-05-02 02:28] LABS: Absolute Lymphocyte Count 1.72 X10^3/uL (0.83-4.51); Absolute Neutrophil Count 13.4 X10^3/uL (2.0-7.7); Basophil# 0.05 X10^3/uL; Basophil% 0.3 % (0-1); Eosinophil# 0.04 X10^3/uL; Eosinophils% 0.2 % (0-5); Hematocrit 50.6 % (37-47); Hemoglobin 15.8 g/dL (12.0-15.0); Lymphocyte # 1.72 X10^3/ul (0.83-4.51); Lymphocyte % 10.6 % (19-41); Mean Corp Hgb Conc 31.2 g/dL (32-36); Mean Corpuscular Hgb 29.9 pg (27.0-32.0); Mean Corpuscular Volume 95.7 fL (81-99); Mean Platelet Vol. 10.2 fl (6.2-12.0); Monocyte# 0.97 X10^3/uL; NRBC Flagged by Analyzer 0 % (0-5); Neutrophil # 13.38 X10^3/uL (2.7-7.7); Neutrophil % 82.2 % (47-70); Platelet Count 300 K/mm3 (150-450); RBC Distribution Width CV 15.3 % (11.6-14.6); RBC Distribution Width SD 53.5 fl (35.1-43.9); Red Blood Count 5.29 M/mm3 (4.2-5.4); White Blood Count 16.3 K/mm3 (4.4-11.0)
[2023-05-02 02:32] LABS: ALB/GLOB Ratio 0.9 RATIO (0.9-2.4); AST(SGOT) 41 U/L (15-37); Alanine Aminotransfer ALT/SGPT 46 U/L (13-56); Albumin, Serum 3.6 g/dL (3.2-5.0); Alkaline Phosphatase 66 U/L (45-117); Anion Gap 11 (5-15); BUN 34 mg/dL (7-18); BUN/Creat Ratio 21.1 RATIO (10-20); Calcium,Total 9.2 mg/dL (8.5-10.1); Chloride 101 mmol/L (98-107); Creatinine, Serum 1.61 mg/dL (0.55-1.02); EST Glomerular Filtration Rate 33 mL/min (>60); Est Glom Filt Rate - Afr Amer 40 mL/min (>60); Estimated Creatinine Clearance 27.59 ml/min; Globulin 3.8 g/dL (2.2-4.2); Glucose 134 mg/dL (74-106); Potassium 4.9 mmol/L (3.5-5.1); Protein, Total 7.4 g/dL (6.4-8.2); Sodium Level 132 mmol/L (136-145); Troponin-I HS (w/2H Reflex) 36 pg/mL (3.0-54.0)
--- NOTE | 2023-05-02 03:17 | EX.ED.DYSGE1 ---
HPI History of Present Illness Chief Complaint: Weakness Informant: patient Onset/Context/Timing Onset: Today Context: Sudden Onset Timing: Continuous Quality: Dizziness, weakness Location: Generalized Worsened by: Nothing Relieved by: Nothing Narrative Narrative: Patient presents with dizziness and weakness that began today. Patient states I just do not feel good. Patient states this came on rather suddenly. Patient states it has been constant for the past few hours. Patient states she had some weakness in her right arm where she could not lift a plate. Currently, patient denies any right arm weakness. Patient states her weakness is generalized. Patient states she feels lightheaded and off-balance. Patient states she felt like she was going to fall because she felt like she was walking on a boat. Patient states nothing makes her symptoms better nothing makes them worse. Patient denies any fevers or chills. Patient denies any ringing or buzzing in ears. [facility] Medical History (Updated 05/02/23 @ 12:[address] Hussain Oakley MD) Diastolic CHF Elevated TSH Former heavy cigarette smoker (20-39 per day) Former tobacco use History of goiter HLD (hyperlipidemia) HTN (hypertension) Hypothyroidism Paroxysmal atrial fibrillation Thyroid disorder Home Medications warfarin 3 mg tablet 1.5 mg PO SUMOTHFRSA BLOOD THINNER 06/13/21 [History Last Taken 06/12/21] furosemide 40 mg tablet (Lasix) 40 mg PO DAILY #30 tabs 06/15/21 [Rx Last Taken Unknown] levothyroxine 50 mcg tablet 50 mcg PO 0600 #30 tabs 06/15/21 [Rx Last Taken Unknown] lisinopril 10 mg tablet 10 mg PO BID #60 tabs 06/15/21 [Rx Last Taken Unknown] metoprolol tartrate 50 mg tablet 50 mg PO BID #60 tabs 06/15/21 [Rx Last Taken Unknown] potassium chloride 20 mEq tablet,extended release (K-Tab) 20 meq PO DAILY #30 tabs 06/15/21 [Rx Last Taken Unknown] warfarin 1 mg tablet 1 mg PO WE Blood Thinner 05/02/23 [History Last Taken Unknown] Allergy/AdvReac Type Severity Reaction Status Date / Time No Known Allergies Allergy Verified 05/02/23 00:03 Family History Mother Colon cancer Father Heart disease Myocardial infarction Surgical History S/P appendectomy S/P cholecystectomy S/P partial thyroidectomy Social History household members: spouse Smoking Status: Former smoker how long ago did patient quit smoking: Quit 2014, 1/2 ppd since eraly 20s. alcohol intake: never substance use type: does not use ROS ROS ED Constitutional Constitutional ED: Reports sweats; Denies chills or fever(s) Eyes Eyes: Denies blurry vision or change in vision ENT ENT ED: Denies rhinorrhea or sore throat Cardiovascular Cardiovascular: Denies chest pain or palpitations Respiratory/Chest Respiratory/Chest: Reports cough and dyspnea Gastrointestinal Gastrointestinal: Reports nausea; Denies vomiting Genitourinary Genitourinary ED: Denies dysuria or hematuria Musculoskeletal Musculoskeletal: Denies back pain or neck pain Integumentary Denies abscess or rash Neurologic Neurologic: Reports weakness; Denies headache(s) Allergic/Immunologic Allergic/Immunologic ED: Denies mouth swelling or urticaria EXAM Physical Exam Const Vital Signs: 05/02/23 02:03 05/02/23 03:08 05/02/23 04:13 Temperature Temperature Source Pulse Rate 67 62 131 H Respiratory Rate 25 H 22 H Blood Pressure 99/74 103/70 Blood Pressure Mean 82 81 Blood Pressure Source Blood Pressure Position Blood Pressure Location Pulse Ox 100 99 Oxygen Delivery Method Room Air Room Air Oxygen Flow Rate (L/min) 05/02/23 05:56 05/02/23 07:32 05/02/23 08:31 Temperature Temperature Source Pulse Rate 124 H 150 H 150 H Respiratory Rate 19 H 20 H 20 H Blood Pressure 133/90 H 152/102 H 148/108 H Blood Pressure Mean 104 118 121 Blood Pressure Source Blood Pressure Position Blood Pressure Location Pulse Ox 94 96 99 Oxygen Delivery Method Room Air Nasal Cannula Oxygen Flow Rate (L/min) 3 05/02/23 09:50 05/02/23 10:50 Temperature 97.9 F 98.1 F Temperature Source Temporal Oral Pulse Rate 144 H 146 H Respiratory Rate 20 H 18 Blood Pressure 138/110 H 139/103 H Blood Pressure Mean 119 115 Blood Pressure Source Monitor Blood Pressure Position Semi-Fowlers Blood Pressure Location Right Arm Pulse Ox 96 100 Oxygen Delivery Method Nasal Cannula Nasal Cannula Oxygen Flow Rate (L/min) 3 3 Positive well nourished and well developed General Appearance ED: well developed and NAD HEENT Reports moist mucous membranes Neck supple and no JVD Resp normal respiratory effort and clear to auscultation bilaterally Cardio regular rate and regular rhythm Rhythm: abnormal rhythm ectopic beats GI normal to inspection, nondistended, normoactive bowel sounds GI Narrative: There is mild diffuse tenderness. There is no rebound or guarding noted. Palpation: soft and tender epigastric, LLQ, RLQ, LUQ, RUQ, periumbilical and suprapubic; Negative for guarding or rebound tenderness present Extremity normal to inspection General Extremety ED: Negative for edema or tenderness General Extremity: Negative for edema Neuro oriented x3, CN's II-XII intact bilaterally and no sensory deficits noted Sensorium / Orientation: alert Motor Exam: strength 5/5 throughout Psych mental status grossly normal Skin no rashes or lesions noted MDM MDM MDM Narrative Medical decision making narrative: Differential diagnosis includes stroke, electrolyte abnormality, cardiac dysrhythmia, cardiac ischemia, pneumonia, urinary tract infection, and viral illness. CT scan of the brain will be obtained to assess for stroke. EKG will be obtained to assess for cardiac dysrhythmia and cardiac ischemia. Chest x-ray will be obtained to assess for pneumonia. CBC will be obtained to assess for leukocytosis and anemia. Comprehensive metabolic profile will be obtained to assess for hepatic function, renal function, and electrolyte abnormality. High-sensitivity troponin will be obtained to assess for cardiac ischemia. 2-hour repeat high-sensitivity troponin will be obtained to assess for ongoing cardiac ischemia. Lab Data Attestation: I reviewed the patient's lab results. Lab results narrative: CBC was reviewed. There is a leukocytosis of 16.3. Hemoglobin was 15.8 and hematocrit was 50.6. Platelets were normal. Comprehensive metabolic profile showed a BUN of 34 and creatinine of 1.61. Sodium was slightly low at 132. CO2 was slightly low at 20. Total bilirubin was slightly elevated at 1.7. AST was 41 and ALT was 46. High-sensitivity troponin was reviewed and was normal at 36. The repeat high-sensitivity troponin was normal at 28. Labs: Laboratory Results - last 24 hr 05/02/23 05/02/23 00:14 03:07 WBC 16.3 H RBC 5.29 Hgb 15.8 H Hct 50.6 H MCV 95.7 MCH 29.9 MCHC 31.2 L RDW Std Deviation 53.5 H RDW Coeff of Nicole 15.3 H Plt Count 300 MPV 10.2 Immature Gran % (Auto) 0.700 Neut % (Auto) 82.2 H Lymph % (Auto) 10.6 L [place] % (Auto) 6.0 Eos % (Auto) 0.2 Baso % (Auto) 0.3 Absolute Neuts (auto) 13.4 H Absolute Lymphs (auto) 1.72 Nucleated RBC % 0 Sodium 132 L Potassium 4.9 Chloride 101 Carbon Dioxide 20.0 L Anion Gap 11 BUN 34 H Creatinine 1.61 H Estim Creat Clear Calc 27.59 Est GFR (MDRD) Af Amer 40 L Est GFR (MDRD) Non-Af 33 L BUN/Creatinine Ratio 21.1 H Glucose 134 H Calcium 9.2 Total Bilirubin 1.70 H AST 41 H ALT 46 Alkaline Phosphatase 66 Troponin I High Sens 36 28 Total Protein 7.4 Albumin 3.6 Globulin 3.8 Albumin/Globulin Ratio 0.9 TSH 13.50 H Radiography Chest X-Ray - ED: 1 View, Read by ED Physician, Read by Radiologist and No Acute Disease Diagnostic Testing: Clinical Impression(s) from Imaging Studies Brain CT 05/02/23 02:00 IMPRESSION: No acute intracranial abnormality. Electronically Signed: Ramy Saldivar DO at 2:47 EDT , Chest X-Ray 05/02/23 02:20 IMPRESSION: Stable cardiomegaly with no evidence of acute pulmonary disease. Electronically Signed: Ramy Saldivar DO at 2:48 EDT , Chest CTA 05/02/23 04:55 IMPRESSION: 1. No pulmonary embolism. 2. No evidence of acute cardiopulmonary disease. 3. Centrilobular emphysematous changes of the lungs. 4. Cardiomegaly. Electronically Signed: Ramy Saldivar DO at 6:43 EDT , CT scan of the brain was obtained. There is no acute intracranial abnormality. This was interpreted by the radiologist and was also independently reviewed by myself. Portable 1 view chest x-ray was obtained. On my independent interpretation, lung fofana are clear. There is normal cardiac silhouette. Bony thorax is normal. There is no acute process noted. Radiologist also interpreted the x-ray and agrees. EKG Initial EKG: Attestation: I personally reviewed and interpreted this EKG as follows: Interpretation: Sinus Bradycardia (54) and Non-Specific ST Changes Comments: EKG was obtained. On my independent interpretation, it showed a sinus bradycardia with a rate of 54. ND interval, QRS interval, and QTc intervals were all normal. Cascilla was normal. There are nonspecific ST-T wave changes. Prior EKG tracings: available for review Prior: Unchanged (03/06/2023) Follow-up EKG: Attestation: I personally reviewed and interpreted this EKG as follows: Interpretation: Sinus Tachycardia (126) and Non-Specific ST Changes Comments: EKG was obtained. On my interpretation, shows sinus tachycardia with a short ND interval with a rate of 125. ND interval was within normal limits. QRS interval was normal. QTc interval was slightly prolonged at 599 ms. Cascilla was normal. There are nonspecific ST-T wave changes. This was unchanged compared to previous EKG dated 03/06/2023. Prior EKG tracings: available for review Prior: Unchanged Management Discussion w/another healthcare provider: Hospitalist Additional Tests and Interventions Additional Tests or Interventions: Because of the persistent tachycardia and history of hypothyroidism, TSH will be added. Treatment and Re-Evaluation :: Patient was given IV fluids. Patient was feeling slightly better. However given her tachycardia, CTA of the chest was obtained to rule out pulmonary embolism as a cause for tachycardia. This was obtained and was negative for any pulmonary embolism or aortic dissection. This was interpreted by the radiologist was also independently reviewed by myself. Patient was given her dose of metoprolol and levothyroxine. Orthostatic vital signs will be obtained. Patient states she is currently seeing an share holder and is on levothyroxine 88 mcg daily. Patient states that her thyroid levels have improved since increasing her dose of levothyroxine. Patient states that in the morning she usually feels tachycardic until she can take her metoprolol and levothyroxine. Patient's heart rate did not improve after her morning dose of metoprolol and levothyroxine. Patient was given a dose of IV metoprolol. Patient heart rate remained at 150. Patient states she does not feel any better. At this point I recommended admission to the hospital. Case was discussed with the hospitalist. He will admit the patient to his service however, he wanted to keep the patient in the emergency department to try to improve the patient's heart rate before she can go to the floor. Discharge Plan Disposition Disposition: Acute Care Hospital [facility] Discharge Date/Time: 05/02/23 10:10
[2023-05-02 04:07] LABS: Reflex Troponin-HS? (from REC) Y
--- NOTE | 2023-05-02 04:19 | ED.RN ---
NOTED ON MONITOR THAT HEART RATE CONVERTED FROM 60 TO 134. TO ROOM TO ASSESS PATIENT, SHE IS RESTING WITH EYES CLOSED, AWAKENS EASILY. SHE DENIES FEELING ANY SYMPTOMS. CALLED FOR EKG AND DR. ESCOBAR NOTIFIED OF SAME.
[2023-05-02 04:23] LABS: Troponin-I HS 28 pg/mL (3.0-54.0)
--- NOTE | 2023-05-02 04:28 | EKG12_ITS ---
Test Reason : Blood Pressure : / mmHG Vent. Rate : 041 BPM Atrial Rate : 000 BPM P-R Int : 000 ms QRS Dur : 098 ms QT Int : 416 ms P-R-T Axes : 000 108 103 degrees QTc Int : 343 ms Junctional bradycardia Rightward axis Incomplete right bundle branch block Nonspecific ST and T wave abnormality Abnormal ECG When compared with ECG of 02-MAY-2023 04:35, MANUAL COMPARISON REQUIRED, DATA IS UNCONFIRMED Confirmed by THAD SANTIAGO, JESSICA ([id number]), web content editor DANIA SERRANO ([id number]) on 05/05/2023 11:11:24 AM Referred By: MICHELLE Confirmed By:JESSICA ONEIL MD
--- NOTE | 2023-05-02 04:55 | CT_ITS ---
INDICATION: Pulmonary embolism EXAMINATION: CT CHEST WITH CONTRAST - CTA Chest WO/W Contrast Injection TECHNIQUE: Helically acquired images were obtained of the chest following IV contrast timed in the pulmonary arterial phase with sagittal and coronal reconstructed images. Post-processing of the angiographic images was performed with multiplanar reformation and 3D reconstruction. Individualized dose optimization techniques were used for this CT. IV contrast dosage and agent: 100 mL of Isovue 370. COMPARISON: 10/18/2016 CT. FINDINGS: LUNGS, PLEURA AND LARGE AIRWAYS: No consolidation or edema. No pulmonary nodule. No pleural effusion. No pneumothorax. Centrilobular emphysematous changes. THYROID: Unremarkable. HEART AND PERICARDIUM: Cardiomegaly with left atrial and right atrial enlargement. Coronary artery calcifications are present. No pericardial effusion. No evidence of right heart strain. Right ventricle to left ventricle ratio measures less than 1. MEDIASTINUM AND BETTY: No mediastinal or hilar adenopathy. Esophagus is unremarkable. No hiatal hernia. VESSELS: No pulmonary embolism. No thoracic aortic aneurysm. UPPER ABDOMEN: The visualized upper abdomen is unremarkable. BONES: No acute abnormality. Compression fracture of the T9 vertebral body, likely chronic. CT/CTA Chest W/WO Contrast IMPRESSION: 1. No pulmonary embolism. 2. No evidence of acute cardiopulmonary disease. 3. Centrilobular emphysematous changes of the lungs. 4. Cardiomegaly. Electronically Signed: Ramy Saldivar DO at 6:43 EDT ,
[2023-05-02] MEDS: 0.9% Normal Saline 1,000 ML 1000 ML IV (05:55)
[2023-05-02] MEDS: Metoprolol Tartrate 50 MG Tablet PO ×2 (07:24→20:26)
[2023-05-02] MEDS: Metoprolol Tartrate 5 MG/5 ML Vial IV ×2 (08:25→22:00)
[2023-05-02] MEDS: Levothyroxine 88 MCG Tablet PO (08:44)
--- NOTE | 2023-05-02 08:56 | NURSING ---
DR ROXANNE ESCOBAR
--- NOTE | 2023-05-02 09:47 | NURSING ---
125 OBS JOPPERI WEAKNESS
[2023-05-02] MEDS: Adenosine 6 MG/2 ML Syringe IV (11:03)
[2023-05-02] MEDS: 0.9% Saline Lock 10 ML Syringe IV ×4 (11:04→14:25)
--- NOTE | 2023-05-02 11:07 | PCM.HP.STD ---
[facility] - General General Date of Admission: 05/02/23 Date of Service: 05/02/23 Chief Complaint: palpitation. HPI Narrative JAYSHREE BOWEN, is a 72 F who presents with palpitations and not feeling well. Patient's heart rate was noted to be in the 30s earlier today and presented to the emergency room. Initially in emergency room, her heart rate was in the 50s, but then went into the 150s. Appear to be sinus tachycardia. Patient was resumed on her daily metoprolol 50 which did not help and then she received 5 mg of IV metoprolol which also did not help. Heart rate still in the 150s. The ER physician then contacted the hospitalist for admission. Patient was symptomatic with palpitations but was otherwise stable. Patient was then brought to the floor and she did receive initially 6 mg of adenosine which did not affect her heart rate whatsoever. Later we were able to get 12 mg and it did show that patient had underlying atrial fibrillation. Patient states that she gets her atrial fibrillation she gets symptomatic with that. She has had previous ablations as well as cardioversions. These were done up in [facility]. [facility] Medical History (Updated 05/02/23 @ 11:[address] Medhat Walters, DO) Diastolic CHF Elevated TSH Former heavy cigarette smoker (20-39 per day) Former tobacco use History of goiter HLD (hyperlipidemia) HTN (hypertension) Hypothyroidism Paroxysmal atrial fibrillation Thyroid disorder Home Medications warfarin 3 mg tablet 3 mg PO DAILY BLOOD THINNER 06/13/21 [History Last Taken 06/12/21] furosemide 40 mg tablet (Lasix) 40 mg PO DAILY #30 tabs 06/15/21 [Rx Last Taken Unknown] levothyroxine 50 mcg tablet 50 mcg PO 0600 #30 tabs 06/15/21 [Rx Last Taken Unknown] lisinopril 10 mg tablet 10 mg PO BID #60 tabs 06/15/21 [Rx Last Taken Unknown] metoprolol tartrate 50 mg tablet 50 mg PO BID #60 tabs 06/15/21 [Rx Last Taken Unknown] potassium chloride 20 mEq tablet,extended release (K-Tab) 20 meq PO DAILY #30 tabs 06/15/21 [Rx Last Taken Unknown] Allergy/AdvReac Type Severity Reaction Status Date / Time No Known Allergies Allergy Verified 05/02/23 00:03 Family History Mother Colon cancer Father Heart disease Myocardial infarction Surgical History S/P appendectomy S/P cholecystectomy S/P partial thyroidectomy Social History household members: spouse Smoking Status: Former smoker how long ago did patient quit smoking: Quit 2014, 1/2 ppd since eraly 20s. alcohol intake: never substance use type: does not use ROS ROS Narrative Trace lower extremity edema. Short of breath. All review of systems were negative except as mentioned above in the history of present illness and the other review of systems. Vital Signs Vital Signs Vital Signs: 05/02/23 00:04 05/02/23 00:04 05/02/23 00:57 Temperature 35.6 C L Temperature Source Oral Pulse Rate 55 L 56 L Respiratory Rate 20 H 18 Respiratory Effort Normal Respiratory Pattern Normal Blood Pressure 104/75 94/61 Blood Pressure Mean 84 72 Blood Pressure Source Blood Pressure Position Blood Pressure Location Pulse Ox 99 100 Oxygen Delivery Method Room Air Oxygen Flow Rate (L/min) 05/02/23 02:03 05/02/23 03:08 05/02/23 04:13 Temperature Temperature Source Pulse Rate 67 62 131 H Respiratory Rate 25 H 22 H Respiratory Effort Respiratory Pattern Blood Pressure 99/74 103/70 Blood Pressure Mean 82 81 Blood Pressure Source Blood Pressure Position Blood Pressure Location Pulse Ox 100 99 Oxygen Delivery Method Room Air Room Air Oxygen Flow Rate (L/min) 05/02/23 05:56 05/02/23 07:32 05/02/23 08:31 Temperature Temperature Source Pulse Rate 124 H 150 H 150 H Respiratory Rate 19 H 20 H 20 H Respiratory Effort Respiratory Pattern Blood Pressure 133/90 H 152/102 H 148/108 H Blood Pressure Mean 104 118 121 Blood Pressure Source Blood Pressure Position Blood Pressure Location Pulse Ox 94 96 99 Oxygen Delivery Method Room Air Nasal Cannula Oxygen Flow Rate (L/min) 3 05/02/23 09:50 05/02/23 10:50 Temperature 36.6 C 36.7 C Temperature Source Temporal Oral Pulse Rate 144 H 146 H Respiratory Rate 20 H 18 Respiratory Effort Respiratory Pattern Blood Pressure 138/110 H 139/103 H Blood Pressure Mean 119 115 Blood Pressure Source Monitor Blood Pressure Position Semi-Fowlers Blood Pressure Location Right Arm Pulse Ox 96 100 Oxygen Delivery Method Nasal Cannula Nasal Cannula Oxygen Flow Rate (L/min) 3 3 Weight Weight: 57 kg Body Mass Index (BMI) 20.9 Physical Exam Const alert and no apparent distress Constitutional Narrative: Nontoxic HEENT normocephalic and head/scalp atraumatic Eyes Eyes Narrative: No icterus. Glasses Neck no lymphadenopathy Resp normal respiratory effort, no retractions, no use of accessory muscles and clear to auscultation bilaterally Cardio Cardio Narrative: Tachycardic and regular. GI normal to inspection, nondistended, normoactive bowel sounds, soft to palpation, non-tender and non-distended Extremity normal to inspection and full ROM Skin Skin Narrative: No rashes or lesions Neuro moves all extremities and no focal motor deficits Sensorium / Orientation: awake and alert Psych affect normal Results Lab / Micro Data Attestation: I reviewed the patient's lab results. 05/02/23 00:14 05/02/23 00:14 Labs: Laboratory Results - last 24 hr 05/02/23 00:14: WBC 16.3 H, RBC 5.29, Hgb 15.8 H, Hct 50.6 H, MCV 95.7, MCH 29.9, MCHC 31.2 L, RDW Std Deviation 53.5 H, RDW Coeff of Nicole 15.3 H, Plt Count 300, MPV 10.2, Immature Gran % (Auto) 0.700, Neut % (Auto) 82.2 H, Lymph % (Auto) 10.6 L, [place] % (Auto) 6.0, Eos % (Auto) 0.2, Baso % (Auto) 0.3, Absolute Neuts (auto) 13.4 H, Absolute Lymphs (auto) 1.72, Nucleated RBC % 0, Sodium 132 L, Potassium 4.9, Chloride 101, Carbon Dioxide 20.0 L, Anion Gap 11, BUN 34 H, Creatinine 1.61 H, Estim Creat Clear Calc 27.59, Est GFR (MDRD) Af Amer 40 L, Est GFR (MDRD) Non-Af 33 L, BUN/Creatinine Ratio 21.1 H, Glucose 134 H, Calcium 9.2, Total Bilirubin 1.70 H, AST 41 H, ALT 46, Alkaline Phosphatase 66, Troponin I High Sens 36, Total Protein 7.4, Albumin 3.6, Globulin 3.8, Albumin/Globulin Ratio 0.9 05/02/23 03:07: Troponin I High Sens 28, TSH 13.50 H Rhythm Strip Rhythm Strip: Sinus Tach Radiology Impression Brain CT 05/02/23 02:00 IMPRESSION: No acute intracranial abnormality. Electronically Signed: Ramy SaldivarDO oliva at 2:47 EDT , Chest X-Ray 05/02/23 02:20 IMPRESSION: Stable cardiomegaly with no evidence of acute pulmonary disease. Electronically Signed: Ramy SaldivarDO oliva at 2:48 EDT , Chest CTA 05/02/23 04:55 IMPRESSION: 1. No pulmonary embolism. 2. No evidence of acute cardiopulmonary disease. 3. Centrilobular emphysematous changes of the lungs. 4. Cardiomegaly. Electronically Signed: Ramy SaldivarDO at 6:43 EDT , Assessment & Plan Assessment/Plan (1) Atrial fibrillation with RVR: PLAN: Patient under my supervision, received initially 6 mg of IV adenosine which had no effect on heart rate and then the 12 which showed underlying atrial fibrillation. We will start diltiazem with 20 mg bolus and then drip at 5 mg/h. We will check an echocardiogram Given her extensive history in regards to her atrial fibrillation, requiring cardioversion as well as ablation, will consult cardiology in case she will need additional intervention. DW with Dr. Oakley. Was to be noted that patient was bradycardic initially upon arrival. Patient anticoagulated with warfarin. (2) Hypothyroidism: QUALIFIERS: Hypothyroidism type: unspecified Qualified Code(s): E03.9 - Hypothyroidism, unspecified PLAN: TSH is 13 Continue levothyroxine as she has taken previously Check free T4 and T3 PLAN: Plan Chronic complicating conditions Chronic CHF Hyperlipidemia Hypertension VTE prophylaxis: Not indicated as patient is anticoagulated. CODE STATUS: Addressed with the patient. Patient wishes to be full code. Charges/Coding Visit Charges Inpatient E&M: 22780 Init Hosp L3
[2023-05-02] MEDS: Adenosine 6 MG/2 ML Syringe 12 MG IV (11:17)
--- NOTE | 2023-05-02 11:37 | ECHOD_ITS ---
Reason For Study: Afib, Aflutter Procedure This was a 2D Doppler, Color Flow transthoracic echocardiogram. Exam performed portable in patient room. Left Ventricle Normal LV size. The estimated ejection fraction is 51 %. Left ventricular systolic function is lower limits of normal. There is borderline global hypokinesis of the left ventricle. Right Ventricle Normal RV size. The right ventricle is normal in size, function, and thickness. Atria The left atrium is mildly enlarged. The right atrium is mildly enlarged. Mitral Valve Normal mitral valve. Mild-Moderate (1-2+) eccentric mitral valve insufficiency. Tricuspid Valve Normal tricuspid valve. Moderate (2+) tricuspid valve insufficiency. Pulmonary artery systolic pressure is 40 mmHg. Aortic Valve Trisinus/trileaflet aortic valve. Pulmonic Valve Normal pulmonic valve. Great Vessels Normal aortic root. The pulmonary artery is normal size. Normal inferior vena cava. Pericardium/Pleural No pericardial effusion. MMode/2D Measurements & Calculations LVIDd: 4.7 cm IVSd: 1.1 cm Ao root diam: 3.0 cm LVIDs: 3.7 cm LVPWd: 0.94 cm RVDd: 3.6 cm FS: 21.6 % LAV(MOD-bp): 68.1 ml LVAd ap4: 22.0 cm2 SV(MOD-sp4): 27.9 ml LAV(MOD-bp) Indexed: 42.1 ml/m2 LVLd ap4: 7.2 cm LAV(MOD-sp2): 60.3 ml EDV(MOD-sp4): 55.1 ml LAV(MOD-sp4): 74.3 ml EDV(sp4-el): 56.8 ml LVAs ap4: 13.9 cm2 LVLs ap4: 5.9 cm ESV(MOD-sp4): 27.2 ml ESV(sp4-el): 27.7 ml EF(MOD-sp4): 50.6 % EF(sp4-el): 51.3 % SV(sp4-el): 29.1 ml LA A4 area: 23.1 cm2 LA dimension(2D): 4.5 cm RA A4 area: 22.4 cm2 Doppler Measurements & Calculations MV E max leo: 83.8 cm/sec Lat Peak E' Leo: 11.8 cm/sec Med Peak E' Leo: 6.3 cm/sec E/E' lat: 7.1 E/E' med: 13.4 Ao V2 max: 102.1 cm/sec LV V1 max: 62.8 cm/sec PA V2 max: 69.3 cm/sec Ao max P.2 mmHg LV V1 max P.6 mmHg Ao V2 mean: 73.5 cm/sec Ao mean P.3 mmHg Ao V2 VTI: 16.0 cm PI end-d leo: 172.1 cm/sec TR max leo: 303.9 cm/sec TR max P.9 mmHg ECHO/Echo Complete Interpretation Summary Normal LV size. The estimated ejection fraction is 51 %. Left ventricular systolic function is lower limits of normal. Moderate (2+) tricuspid valve insufficiency. Pulmonary artery systolic pressure is 40 mmHg. The left atrium is mildly enlarged. The right atrium is mildly enlarged. Ordering Physician: Medhat Walters Referring Physician: Lei Acevedo Performed By: Manisha Israel, RDCS, RVT
--- NOTE | 2023-05-02 11:57 | PCM.CONS.C ---
Assessment & Plan Assessment/Plan (1) Ectopic atrial tachycardia: PLAN: She appears to be in rapid regular tachycardia with inverted P waves which is suggestive of an ectopic atrial tachycardia. My recommendation at this time is to continue her beta-yany Continue anticoagulation maintaining an INR of 2-3 Start amiodarone with IV bolus Oral amiodarone from this evening... This will likely be short-term. May eventually need to increase the dose of the beta-yany (2) HTN (hypertension): QUALIFIERS: Hypertension type: unspecified Qualified Code(s): I10 - Essential (primary) hypertension PLAN: She does have a history of hypertension. We will continue the beta-yany and the lisinopril. After we increase the dose of the beta-yany we may reduce the dose of the lisinopril. We will recommend an echocardiogram to assess ventricular function. Thank you for allowing me to participate in the care of your patient. Please don't hesitate to call if any issues arise. HPI Consult Data Date of Consult: 05/02/23 HPI Narrative HPI Narrative: JAYSHREE BOWEN, is a 72 F who presents to the emergency room with palpitations. She has a history of previous atrial fibrillation, hypertension, thyroid disorder status post thyroidectomy as well as evaluation for her cardiac arrhythmias. She had been on anticoagulant as well as flecainide for antiarrhythmic. She had been seen in atrial fibrillation with a rapid ventricular response rate and had been sent to the [facility] for an ablation. She successfully underwent the above and was on beta-yany which she was tolerating and doing quite well. She does also have obstructive pulmonary disease. Today when she presented she appeared to be in a narrow complex tachycardia with a rate of approximately 126 bpm with inverted T waves and P waves which were more suggestive of an ectopic atrial tachycardia. She was administered adenosine as well as beta-yany with some improvement. She currently is having minimal symptomatology. She denies any chest pain or paroxysmal nocturnal dyspnea or pedal edema. [facility] Medical History (Updated 05/02/23 @ 12:[address] Hussain Oakley MD) Diastolic CHF Elevated TSH Former heavy cigarette smoker (20-39 per day) Former tobacco use History of goiter HLD (hyperlipidemia) HTN (hypertension) Hypothyroidism Paroxysmal atrial fibrillation Thyroid disorder Home Medications warfarin 3 mg tablet 1.5 mg PO SUMOTHFRSA BLOOD THINNER 08/13/21 [History Last Taken 06/12/21] furosemide 40 mg tablet (Lasix) 40 mg PO DAILY #30 tabs 06/15/21 [Rx Last Taken Unknown] levothyroxine 50 mcg tablet 50 mcg PO 0600 #30 tabs 06/15/21 [Rx Last Taken Unknown] lisinopril 10 mg tablet 10 mg PO BID #60 tabs 06/15/21 [Rx Last Taken Unknown] metoprolol tartrate 50 mg tablet 50 mg PO BID #60 tabs 06/15/21 [Rx Last Taken Unknown] potassium chloride 20 mEq tablet,extended release (K-Tab) 20 meq PO DAILY #30 tabs 06/15/21 [Rx Last Taken Unknown] warfarin 1 mg tablet 1 mg PO WE Blood Thinner 05/02/23 [History Last Taken Unknown] Allergy/AdvReac Type Severity Reaction Status Date / Time No Known Allergies Allergy Verified 05/02/23 00:03 Family History Mother Colon cancer Father Heart disease Myocardial infarction Surgical History S/P appendectomy S/P cholecystectomy S/P partial thyroidectomy Social History household members: spouse Smoking Status: Former smoker how long ago did patient quit smoking: Quit 2014, 1/2 ppd since eraly 20s. alcohol intake: never substance use type: does not use ROS Constitutional Constitutional: Denies fever(s) or weight loss Eyes Eyes: Reports systems reviewed and no addt'l complaints, except as documented ENT HEENT: Reports systems reviewed and no addt'l complaints, except as documented Cardiovascular Cardiovascular: Reports palpitations; Denies chest pain at rest, chest pain with activity, dyspnea at rest, dyspnea on exertion, edema or paroxysmal nocturnal dyspnea Respiratory/Chest Respiratory/Chest: Denies dyspnea on exertion, productive cough, shortness of breath at rest or shortness of breath with exertion Gastrointestinal Gastrointestinal: Denies change in bowel habits, nausea, vomiting or weight changes Genitourinary Genitourinary: Denies difficulty urinating Musculoskeletal Musculoskeletal: Denies joint stiffness or muscle weakness Integumentary Integumentary: Denies lesions Neurologic Neurologic: Denies dizziness or syncope Psychiatric Psychiatric: Denies anxiety Endocrine Endocrinology: Denies excessive sweating or fatigue Hematologic/Lymphatic Hematologic/Lymphatic: Denies anemia Allergic/Immunologic Allergic/Immunologic: Denies seasonal rhinorrhea Physical Exam Const alert, oriented x3 and no apparent distress General Appearance: cooperative HEENT hearing grossly normal bilaterally Head and Scalp: atraumatic Eyes EOMs intact bilaterally Neck General: normal visual inspection Chest inspection of chest normal and palpation of chest normal Resp normal respiratory effort Auscultation: clear to auscultation bilaterally Cardio regular rate, regular rhythm, S1 normal heart sound and S2 normal heart sound Jugular Venous Distention: JVD GI normal to inspection, nondistended, normoactive bowel sounds Extremity normal capillary refill and no pedal edema Peripheral Pulses: Yes pulses 2+ throughout and femoral pulses present Skin no rashes or lesions noted Neuro oriented x3 and CN's II-XII intact bilaterally Psych Appearance: grossly normal and appropriate Risk Stratification Risk Stratification Applicable: No Objective Data Vital Signs: Vital Signs Temp Pulse Resp BP Pulse Ox O2 Del Method O2 Flow Rate 98.1 F 146 H 18 139/103 H 100 Nasal Cannula 3 05/02/23 10:50 05/02/23 10:50 05/02/23 10:50 05/02/23 10:50 05/02/23 10:50 05/02/23 10:50 05/02/23 10:50 Oxygen Flow Rate (L/min) 3 Oxygen Delivery Method Nasal Cannula Weight: 125 lb 10.616 oz Body Mass Index (BMI) 20.9 Intake & Output: Intake and Output for Last 24 Hours 04/30/23 05/01/23 05/02/23 23:59 23:59 23:59 Intake Total 500 / 500 Balance 500 / 500 Lab / Micro Data 05/02/23 00:14 05/02/23 00:14 Labs: Laboratory Results - last 24 hr 05/02/23 00:14: WBC 16.3 H, RBC 5.29, Hgb 15.8 H, Hct 50.6 H, MCV 95.7, MCH 29.9, MCHC 31.2 L, RDW Std Deviation 53.5 H, RDW Coeff of Nicole 15.3 H, Plt Count 300, MPV 10.2, Immature Gran % (Auto) 0.700, Neut % (Auto) 82.2 H, Lymph % (Auto) 10.6 L, [place] % (Auto) 6.0, Eos % (Auto) 0.2, Baso % (Auto) 0.3, Absolute Neuts (auto) 13.4 H, Absolute Lymphs (auto) 1.72, Nucleated RBC % 0, Sodium 132 L, Potassium 4.9, Chloride 101, Carbon Dioxide 20.0 L, Anion Gap 11, BUN 34 H, Creatinine 1.61 H, Estim Creat Clear Calc 27.59, Est GFR (MDRD) Af Amer 40 L, Est GFR (MDRD) Non-Af 33 L, BUN/Creatinine Ratio 21.1 H, Glucose 134 H, Calcium 9.2, Total Bilirubin 1.70 H, AST 41 H, ALT 46, Alkaline Phosphatase 66, Troponin I High Sens 36, Total Protein 7.4, Albumin 3.6, Globulin 3.8, Albumin/Globulin Ratio 0.9 05/02/23 03:07: Troponin I High Sens 28, TSH 13.50 H Rhythm Strip Rhythm Strip: Sinus Tach Cardiology Labs/Tests 05/02/23 00:14: WBC 16.3 H, RBC 5.29, Hgb 15.8 H, Hct 50.6 H, MCV 95.7, MCH 29.9, MCHC 31.2 L, Plt Count 300, MPV 10.2, Immature Gran % (Auto) 0.700, Neut % (Auto) 82.2 H, Lymph % (Auto) 10.6 L, [place] % (Auto) 6.0, Eos % (Auto) 0.2, Baso % (Auto) 0.3, Absolute Neuts (auto) 13.4 H, Nucleated RBC % 0, Sodium 132 L, Potassium 4.9, Chloride 101, Carbon Dioxide 20.0 L, Anion Gap 11, BUN 34 H, Creatinine 1.61 H, Est GFR (MDRD) Af Amer 40 L, Est GFR (MDRD) Non-Af 33 L, BUN/Creatinine Ratio 21.1 H, Glucose 134 H, Calcium 9.2, Total Bilirubin 1.70 H Rhythm: EKG: ECHO: Stress Test: Cardiac Cath: PCI: CT Surgery: Holter monitor: EPS: PPM: CXR: Chest CT Scan: Radiography Diagnostic Testing: Radiology Impression Brain CT 05/02/23 02:00 IMPRESSION: No acute intracranial abnormality. Electronically Signed: Ramy Saldivar DO at 2:47 EDT , Chest X-Ray 05/02/23 02:20 IMPRESSION: Stable cardiomegaly with no evidence of acute pulmonary disease. Electronically Signed: Ramy Saldivar, at 2:48 EDT , Chest CTA 05/02/23 04:55 IMPRESSION: 1. No pulmonary embolism. 2. No evidence of acute cardiopulmonary disease. 3. Centrilobular emphysematous changes of the lungs. 4. Cardiomegaly. Electronically Signed: Ramy Saldivar, at 6:43 EDT ,
[2023-05-02 13:01] LABS: Troponin-I HS 706 pg/mL (3.0-54.0)
[2023-05-02 14:16] LABS: Free T3 1.4 pg/mL (2.18-3.98); T4 Free Direct 1.74 ng/dL (0.76-1.46)
[2023-05-02] MEDS: dilTIAZem 25 MG/5 ML Vial 20 MG IV BOLUS (14:25)
[2023-05-02] MEDS: Amiodarone 200 MG Tablet PO (17:59)
[2023-05-02] MEDS: Ensure Plus High Protein 120 ML LIQUID PO ×2 (18:01→20:37)
[2023-05-02 22:56] LABS: International Normalized Ratio 1.4; Prothrombin Time (Protime)PT. 17.2 SECONDS (11.7-14.9)
[2023-05-03] VITALS (29 sets, daily range): BP systolic 82–147; BP diastolic 69–127; PULSE 38–137; RESP 16–22; TEMP 36.2–37.1; O2SAT 95–100
--- NOTE | 2023-05-03 00:10 | PCM.HOSP.N ---
Hospitalist Note Patient with hypotension and ongoing RVR. Patient has prior refused her amiodarone pills from discussion with staff. At this point Cardizem drip has been held given hypotensive and persistent RVR despite this regimen. She was given metoprolol oral this evening as well. Small 250 cc bolus given with improvement of SBP 90s. Will start amiodarone drip, had been from chart given bolus earlier.
[2023-05-03] MEDS: Amiodarone 360 MG in Dextrose 5% Viaflo Bag 192.8 ML 33.3 MG CONT INF (01:00)
[2023-05-03] MEDS: 0.9% Saline Lock 10 ML Syringe IV ×2 (01:07→04:35)
[2023-05-03] MEDS: Levothyroxine 50 MCG Tablet PO (04:35)
[2023-05-03] MEDS: Digoxin 250 MCG/ML Ampul 500 MCG IV (04:35)
[2023-05-03] MEDS: Amiodarone 360 MG in Dextrose 5% Viaflo Bag 192.8 ML 16.7 MG CONT INF (06:38)
[2023-05-03 06:57] LABS: Absolute Lymphocyte Count 1.18 X10^3/uL (0.83-4.51); Absolute Neutrophil Count 6.5 X10^3/uL (2.0-7.7); Basophil# 0.03 X10^3/uL; Basophil% 0.4 % (0-1); Eosinophil# 0.05 X10^3/uL; Eosinophils% 0.6 % (0-5); Hematocrit 41.8 % (37-47); Hemoglobin 13.7 g/dL (12.0-15.0); Lymphocyte # 1.18 X10^3/ul (0.83-4.51); Lymphocyte % 13.9 % (19-41); Mean Corp Hgb Conc 32.8 g/dL (32-36); Mean Corpuscular Volume 91.5 fL (81-99); Mean Platelet Vol. 9.4 fl (6.2-12.0); Monocyte# 0.68 X10^3/uL; NRBC Flagged by Analyzer 0 % (0-5); Neutrophil # 6.49 X10^3/uL (2.7-7.7); Neutrophil % 76.7 % (47-70); Platelet Count 205 K/mm3 (150-450); RBC Distribution Width CV 15.4 % (11.6-14.6); RBC Distribution Width SD 51.3 fl (35.1-43.9); Red Blood Count 4.57 M/mm3 (4.2-5.4); White Blood Count 8.5 K/mm3 (4.4-11.0)
[2023-05-03] MEDS: Atropine Sulfate 1 MG/10 ML Syringe IV (07:00)
--- NOTE | 2023-05-03 07:00 | NURSING ---
Patient HR dropped to 30s-BEAM DEPARTMENT SUPERVISOR called. Amiodarone drip turned off -atropine given
[2023-05-03 07:18] LABS: International Normalized Ratio 1.5; Prothrombin Time (Protime)PT. 18.2 SECONDS (11.7-14.9)
[2023-05-03 07:27] LABS: Anion Gap 5 (5-15); BUN 36 mg/dL (7-18); BUN/Creat Ratio 30.8 RATIO (10-20); Chloride 107 mmol/L (98-107); Creatinine, Serum 1.17 mg/dL (0.55-1.02); EST Glomerular Filtration Rate 48 mL/min (>60); Est Glom Filt Rate - Afr Amer 58 mL/min (>60); Estimated Creatinine Clearance 37.96 ml/min; Glucose 99 mg/dL (74-106); Potassium 4.4 mmol/L (3.5-5.1); Sodium Level 134 mmol/L (136-145)
--- NOTE | 2023-05-03 09:17 | PN.CARD_ITS ---
Subjective Subjective Patient seen and evaluated. Events of last night noted. Events of this morning noted as well. Objective Data Vital Signs: Vital Signs Temp Pulse Resp BP Pulse Ox O2 Del Method O2 Flow Rate 98.7 F 120 H 18 138/99 H 96 Nasal Cannula 2 05/03/23 06:00 05/03/23 06:00 05/03/23 06:00 05/03/23 06:00 05/03/23 06:00 05/03/23 06:00 05/03/23 06:00 FiO2 2 05/02/23 15:45 Oxygen Flow Rate (L/min) 2 Oxygen Delivery Method Nasal Cannula Weight: 125 lb 10.616 oz Body Mass Index (BMI) 20.9 Intake & Output: Intake and Output for Last 24 Hours 05/01/23 05/02/23 05/03/23 23:59 23:59 23:59 Intake Total 2311.92 / 2461.92 492.90 / 492.90 Output Total 400 / 400 Balance 2311.92 / 2461.92 92.90 / 92.90 Lab / Micro Data 05/03/23 06:35 05/03/23 06:35 Labs: Laboratory Results - last 24 hr 05/02/23 03:07: TSH 13.50 H 05/02/23 12:15: Troponin I High Sens 706 H*, Free T4 1.74 H, Free T3 pg/dL 1.4 L 05/02/23 22:30: PT 17.2 H, INR 1.4 05/03/23 06:35: WBC 8.5, RBC 4.57, Hgb 13.7, Hct 41.8, MCV 91.5, MCH 30.0, MCHC 32.8 D, RDW Std Deviation 51.3 H, RDW Coeff of Nicole 15.4 H, Plt Count 205, MPV 9.4, Immature Gran % (Auto) 0.400, Neut % (Auto) 76.7 H, Lymph % (Auto) 13.9 L, [place] % (Auto) 8.0, Eos % (Auto) 0.6, Baso % (Auto) 0.4, Absolute Neuts (auto) 6.5, Absolute Lymphs (auto) 1.18, Nucleated RBC % 0, PT 18.2 H, INR 1.5, Sodium 134 L, Potassium 4.4, Chloride 107, Carbon Dioxide 22.0, Anion Gap 5, BUN 36 H, Creatinine 1.17 H, Estim Creat Clear Calc 37.96, Est GFR (MDRD) Af Amer 58 L, Est GFR (MDRD) Non-Af 48 L, BUN/Creatinine Ratio 30.8 H, Glucose 99, Calcium 8.0 L Rhythm Strip Rhythm Strip: Sinus Tach Cardiology Labs/Tests 05/02/23 22:30: PT 17.2 H, INR 1.4 05/03/23 06:35: WBC 8.5, RBC 4.57, Hgb 13.7, Hct 41.8, MCV 91.5, MCH 30.0, MCHC 32.8 D, Plt Count 205, MPV 9.4, Immature Gran % (Auto) 0.400, Neut % (Auto) 76.7 H, Lymph % (Auto) 13.9 L, [place] % (Auto) 8.0, Eos % (Auto) 0.6, Baso % (Auto) 0.4, Absolute Neuts (auto) 6.5, Nucleated RBC % 0, PT 18.2 H, INR 1.5, Sodium 134 L, Potassium 4.4, Chloride 107, Carbon Dioxide 22.0, Anion Gap 5, BUN 36 H, Creatinine 1.17 H, Est GFR (MDRD) Af Amer 58 L, Est GFR (MDRD) Non-Af 48 L , BUN/Creatinine Ratio 30.8 H, Glucose 99, Calcium 8.0 L Rhythm: EKG: ECHO: Stress Test: Cardiac Cath: PCI: CT Surgery: Holter monitor: EPS: PPM: CXR: Chest CT Scan: Radiography Diagnostic Testing: Radiology Impression Echocardiogram 05/02/23 11:37 Interpretation Summary Normal LV size. The estimated ejection fraction is 51 %. Left ventricular systolic function is lower limits of normal. Moderate (2+) tricuspid valve insufficiency. Pulmonary artery systolic pressure is 40 mmHg. The left atrium is mildly enlarged. The right atrium is mildly enlarged. Ordering Physician: Medhat Walters Referring Physician: Lei Acevedo Performed By: Manisha Israel, BENJAMINCS, RVT Physical Exam Const alert, oriented x3 and no apparent distress General Appearance: cooperative HEENT hearing grossly normal bilaterally Head and Scalp: atraumatic Eyes EOMs intact bilaterally Neck General: normal visual inspection Chest inspection of chest normal and palpation of chest normal Resp normal respiratory effort Auscultation: clear to auscultation bilaterally Cardio S1 normal heart sound and S2 normal heart sound Jugular Venous Distention: JVD Rhythm: other Other Details: Irregular rhythm GI normal to inspection, nondistended, normoactive bowel sounds Extremity normal capillary refill and no pedal edema Peripheral Pulses: Yes pulses 2+ throughout and femoral pulses present Skin no rashes or lesions noted Neuro oriented x3 and CN's II-XII intact bilaterally Psych Appearance: grossly normal and appropriate Assessment & Plan Assessment/Plan (1) Ectopic atrial tachycardia: PLAN: She appears to be in rapid regular tachycardia with inverted P waves which is suggestive of an ectopic atrial tachycardia. My recommendation at this time is to continue her beta-yany * Did appear that she had some episodes of atrial fibrillation as well. She is having some pauses suggestive of a tacky bradycardia syndrome. * Will wait for digoxin effect to wear off and then continue metoprolol. * She may need to be evaluated for a reablation or permanent pacemaker implantation and rate control * Patient had above procedures performed at the [facility]. She does not really follow with anyone here and says that she is still looking for an appropriate sales applications engineer. (2) HTN (hypertension): QUALIFIERS: Hypertension type: unspecified Qualified Code(s): I10 - Essential (primary) hypertension PLAN: She does have a history of hypertension. We will continue the beta-yany and the lisinopril. After we increase the dos e of the beta-yany we may reduce the dose of the lisinopril. Echocardiogram demonstrated preserved left ventricular systolic function. Thank you for allowing me to participate in the care of your patient. Please don't hesitate to call if any issues arise.
--- NOTE | 2023-05-03 11:23 | EKG12_ITS ---
Test Reason : RHYTHM CHANGE Blood Pressure : / mmHG Vent. Rate : 126 BPM Atrial Rate : 126 BPM P-R Int : 088 ms QRS Dur : 096 ms QT Int : 414 ms P-R-T Axes : 000 066 068 degrees QTc Int : 599 ms Sinus tachycardia with short VT Minimal voltage criteria for LVH, may be normal variant ( Sokolow-Escobar ) Abnormal ECG Confirmed by CAIN SANTIAGO, RAMIN ([id number]), photographic editor DANIA SERRANO ([id number]) on 05/05/2023 11:40:00 AM Referred By: Confirmed By:MOLINA BARLOW MD
--- NOTE | 2023-05-03 12:15 | CASEMGMT ---
RN CM Face to Face with patient for initial transition planning/care coordination assessment. RN CM introduced self and role at [facility]. Patient lying in bed, alert and oriented. Patient willing to participate in assessment and is able to answer all questions appropriately. Care providers, pharmacy, and demographics verified. Patient wishes to discharge home, denies need for home health at this time. Patient states she has no further needs or concerns at this time. CM to follow for discharge planning needs that may arise. PCP: Curtis Specialists: Carlos contract sheltered workshop supervisor Preferred Pharmacy: [facility] Insurance: [facility] Prescription Benefit: none Living Will/HPOA: none LNOK: , son Living Arrangements: Patient lives with in a single story home with 3 steps and railing to enter the home. Patient states she is independent at home. Transportation: self, DME/HHC: Patient has shower chair and raised toilet at home. No previous HHC or SNF Disposition Plan: Patient to discharge home with family support and follow plans in place. Tila COOLEYN, RN, CM
--- NOTE | 2023-05-03 13:36 | EKG12_ITS ---
Test Reason : BELKIS Blood Pressure : / mmHG Vent. Rate : 084 BPM Atrial Rate : 084 BPM P-R Int : 128 ms QRS Dur : 090 ms QT Int : 402 ms P-R-T Axes : 000 097 111 degrees QTc Int : 475 ms Sinus rhythm with paroxysmal Atrial Tachycardia Rightward axis Nonspecific ST and T wave abnormality Abnormal ECG No previous ECGs available Confirmed by THAD SANTIAGO, JESSICA ([id number]), video effects editor DANIA SERRANO ([id number]) on 05/05/2023 11:10:11 AM Referred By: MICHELLE Confirmed By:JESSICA ONEIL MD
--- NOTE | 2023-05-03 14:33 | EKG12_ITS ---
Test Reason : PRE-OP Blood Pressure : / mmHG Vent. Rate : 120 BPM Atrial Rate : 120 BPM P-R Int : 000 ms QRS Dur : 088 ms QT Int : 308 ms P-R-T Axes : 000 102 119 degrees QTc Int : 435 ms Atrial tachycardia with block Septal infarct , age undetermined Abnormal ECG When compared with ECG of 03-MAY-2023 11:25, MANUAL COMPARISON REQUIRED, DATA IS UNCONFIRMED Confirmed by THAD SANTIAGO, JESSICA ([id number]), supervising editor news reel DANIA SERRANO ([id number]) on 05/11/2023 12:29:34 PM Referred By: MICHELLE Confirmed By:JESSICA ONEIL MD
[2023-05-03] MEDS: Ensure Plus High Protein 120 ML LIQUID PO ×2 (16:31→22:20)
--- NOTE | 2023-05-03 17:48 | PCM.PN.HOSP ---
Reason for Visit Reason for Visit: Palpitations Subjective Subjective Patient is a 72-year-old white female who presented to the emergency department with palpitations and generally not feeling well. Patient reported that her heart rate was noted to be in the 30s earlier on the day of presentation however when she presented to the emergency department she was in the 150s. It did appear to be sinus tachycardia initially. The patient was resumed on her oral metoprolol 50 mg which did not help and then she received 5 mg of IV metoprolol which also did not help. Her heart rate still remained in the 150s. She was brought to the floor and received 6 mg of adenosine which did not affect her heart rate and later 12 mg was given and this did show underlying A-fib with RVR. She has a previous history of atrial fibrillation with previous ablations that were done at [facility]. An echocardiogram was performed and demonstrated an EF of 51%, moderate tricuspid valve insufficiency and pulmonary artery systolic pressures of 40 mmHg. She had mildly enlarged bilateral atrium. Cardiology was consulted and they felt her underlying rhythm was likely an ectopic atrial tachycardia due to the identification of inverted P waves and regular rate. She was to continue on her beta-yany, continue anticoagulation and was started on IV amiodarone with a bolus with transition to oral amiodarone last evening. Her heart rate remained elevated overnight and she was given another dose of IV metoprolol however it made her feel funny and this was discontinued. She was then given a dose of digoxin about 5 AM. At about 7 AM rapid response was called as the patient was found to be bradycardic with heart rates in the 30s and she was symptomatic. Cardiology was notified and felt that she would likely had heart block due to the administration of amiodarone along with digoxin. Throughout the day her heart rates have progressively improved and on last evaluation heart rate was 113. Metoprolol 75 mg twice daily was ordered and her first dose will be this evening. She is much better symptomatically with improved heart rates. Patient states she is slowly feeling better however still complaining of dizziness/lightheadedness. Objective Data Objective Data Vital Signs: Vital Signs Temp Pulse Resp BP Pulse Ox O2 Del Method O2 Flow Rate 97.4 F L 117 H 16 142/91 H 95 Nasal Cannula 2 05/03/23 16:25 05/03/23 16:25 05/03/23 16:25 05/03/23 16:25 05/03/23 16:25 05/03/23 16:25 05/03/23 16:25 FiO2 2 05/02/23 15:45 Oxygen Flow Rate (L/min) 2 Oxygen Delivery Method Nasal Cannula Weight: 57 kg Body Mass Index (BMI) 20.9 Intake & Output: Intake and Output for Last 24 Hours 05/01/23 05/02/23 05/03/23 23:59 23:59 23:59 Intake Total 2311.92 / 2461.92 492.90 / 492.90 Output Total 400 / 400 Balance 2311.92 / 2461.92 92.90 / 92.90 Lab / Micro Data 05/03/23 06:35 05/03/23 06:35 Labs: Laboratory Results - last 24 hr 05/02/23 22:30: PT 17.2 H, INR 1.4 05/03/23 06:35: WBC 8.5, RBC 4.57, Hgb 13.7, Hct 41.8, MCV 91.5, MCH 30.0, MCHC 32.8 D, RDW Std Deviation 51.3 H, RDW Coeff of Nicole 15.4 H, Plt Count 205, MPV 9.4, Immature Gran % (Auto) 0.400, Neut % (Auto) 76.7 H, Lymph % (Auto) 13.9 L, [place] % (Auto) 8.0, Eos % (Auto) 0.6, Baso % (Auto) 0.4, Absolute Neuts (auto) 6.5, Absolute Lymphs (auto) 1.18, Nucleated RBC % 0, PT 18.2 H, INR 1.5, Sodium 134 L, Potassium 4.4, Chloride 107, Carbon Dioxide 22.0, Anion Gap 5, BUN 36 H, Creatinine 1.17 H, Estim Creat Clear Calc 37.96, Est GFR (MDRD) Af Amer 58 L, Est GFR (MDRD) Non-Af 48 L, BUN/Creatinine Ratio 30.8 H, Glucose 99, Calcium 8.0 L Radiography Diagnostic Testing: Radiology Impression Echocardiogram 05/02/23 11:37 Interpretation Summary Normal LV size. The estimated ejection fraction is 51 %. Left ventricular systolic function is lower limits of normal. Moderate (2+) tricuspid valve insufficiency. Pulmonary artery systolic pressure is 40 mmHg. The left atrium is mildly enlarged. The right atrium is mildly enlarged. Ordering Physician: Medhat Walters Referring Physician: Lei Acevedo Performed By: Mainsha Israel, FRANNIE, RVT Rhythm Strip Rhythm Strip: Sinus Tach Physical Exam Const alert, oriented x3, average body habitus and well nourished Constitutional Narrative: Older, normal weight, white female, sitting up in bed, appears as if she is not feeling well as I evaluated her right after her rapid response, nontoxic, nursing at bedside HEENT head/scalp atraumatic and moist oral mucous membranes HEENT Narrative: Mallampati 2, no thrush Head and Scalp: normocephalic Resp normal respiratory effort, no retractions, no use of accessory muscles and clear to auscultation bilaterally Auscultation: Negative for rales, rhonchi or wheezes Cardio regular rate, S1 normal heart sound, S2 normal heart sound, no murmurs, no rub, no gallops and no clicks Cardio Narrative: Rate is regular however intermittent pauses noted GI normal to inspection, nondistended, normoactive bowel sounds, soft to palpation and non-tender Extremity no clubbing, cyanosis or edema Extremity Narrative: Pedal pulses are 2+ Neuro oriented x3, moves all extremities, no focal motor deficits and no sensory deficits noted Speech: speech normal Psych Psych Narrative: Affect is flat and mood seems slightly depressed however this is appropriate given current situations Assessment & Plan Assessment/Plan (1) Bradycardia: (2) Ectopic atrial tachycardia: (3) DARYN (acute kidney injury): PLAN: Plan Ectopic atrial tachycardia with episodic bradycardia -Bradycardia suspected to be related to amiodarone with digoxin dosing -Patient did have bradycardia prior to presentation and I did discuss with cardiology -Continue to monitor on telemetry -Discontinuation of amiodarone this morning with transition to oral metoprolol 75 mg p.o. 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 -Echocardiogram showed EF of 51% with moderate tricuspid valve insufficiency, mild pulmonary artery systolic pressure elevation at 40 mmHg and mild biatrial enlargement -Cardiology following-appreciate input -Call cardiology with any issues overnight and avoid digoxin DARYN -It appears baseline creatinine is between 1 and 1.2 -Serum creatinine on presentation was 1.61 -Current serum creatinine is 1.17 -Avoid nephrotoxins -Repeat lab in a.m. Hypothyroidism -TSH is elevated at 13 and free T4 is elevated as well with a low free T3 -Suspect there may be some medication compliance issues -We will continue levothyroxine and recommend outpatient TSH in 6 weeks Hypertension -Continue metoprolol as ordered -Continue home lisinopril -Continue home hold Lasix for now History of tobacco abuse -Recommend ongoing cessation DVT prophylaxis -Coumadin is subtherapeutic -Add Lovenox subcu 40 daily until INR greater than 2 CODE STATUS -Full code Charges/Coding Visit Charges Inpatient E&M: 65105 Subs Hosp L2
[2023-05-03] MEDS: Heparin Injection (Vial) 5,000 UNIT/ML VIAL 5000 UNIT SC (22:23)
[2023-05-04] VITALS (19 sets, daily range): BP systolic 132–158; BP diastolic 71–116; PULSE 58–145; RESP 15–23; TEMP 36.1–36.9; O2SAT 92–99
[2023-05-04] MEDS: Metoprolol Tartrate 25 MG Tablet PO ×4 (03:14→22:44)
[2023-05-04] MEDS: Levothyroxine 50 MCG Tablet PO (06:04)
[2023-05-04 06:18] LABS: Absolute Lymphocyte Count 1.23 X10^3/uL (0.83-4.51); Absolute Neutrophil Count 8.5 X10^3/uL (2.0-7.7); Basophil# 0.04 X10^3/uL; Basophil% 0.4 % (0-1); Eosinophil# 0.08 X10^3/uL; Eosinophils% 0.8 % (0-5); Hematocrit 44.1 % (37-47); Hemoglobin 14.5 g/dL (12.0-15.0); Lymphocyte # 1.23 X10^3/ul (0.83-4.51); Lymphocyte % 11.6 % (19-41); Mean Corp Hgb Conc 32.9 g/dL (32-36); Mean Corpuscular Hgb 29.3 pg (27.0-32.0); Mean Corpuscular Volume 89.1 fL (81-99); Monocyte# 0.76 X10^3/uL; Monocyte% 7.1 % (0-10); NRBC Flagged by Analyzer 0 % (0-5); Neutrophil % 79.8 % (47-70); Platelet Count 206 K/mm3 (150-450); RBC Distribution Width CV 15.1 % (11.6-14.6); RBC Distribution Width SD 48.8 fl (35.1-43.9); Red Blood Count 4.95 M/mm3 (4.2-5.4); White Blood Count 10.6 K/mm3 (4.4-11.0)
[2023-05-04 06:30] LABS: International Normalized Ratio 1.9; Prothrombin Time (Protime)PT. 21.5 SECONDS (11.7-14.9)
[2023-05-04 06:50] LABS: Anion Gap 4 (5-15); BUN 19 mg/dL (7-18); BUN/Creat Ratio 24.3 RATIO (10-20); Calcium,Total 8.3 mg/dL (8.5-10.1); Chloride 106 mmol/L (98-107); Creatinine, Serum 0.78 mg/dL (0.55-1.02); EST Glomerular Filtration Rate 76 mL/min (>60); Est Glom Filt Rate - Afr Amer 92 mL/min (>60); Estimated Creatinine Clearance 44.41 ml/min; Glucose 84 mg/dL (74-106); Potassium 4.1 mmol/L (3.5-5.1); Sodium Level 134 mmol/L (136-145)
[2023-05-04] MEDS: Lisinopril 10 MG Tablet PO (08:56)
[2023-05-04] MEDS: Heparin Injection (Vial) 5,000 UNIT/ML VIAL 5000 UNIT SC ×2 (08:56→20:05)
[2023-05-04] MEDS: Furosemide 40 MG Tablet PO (09:07)
--- NOTE | 2023-05-04 13:33 | PCM.PN.HOSP ---
Reason for Visit Reason for Visit: Palpitations Subjective Subjective Patient still with pauses and intermittent bradycardia overnight. Per discussion with nursing and patient plan is for pacemaker placement tomorrow with suspected sick sinus syndrome. Patient states she does have dizzy spells of the bradycardia last for any length of time however she is feeling better today than yesterday. Objective Data Objective Data Vital Signs: Vital Signs Temp Pulse Resp BP Pulse Ox O2 Del Method O2 Flow Rate 97 F L 108 H 19 H 132/71 H 94 Room Air 1 05/04/23 11:00 05/04/23 11:00 05/04/23 11:00 05/04/23 11:00 05/04/23 11:00 05/04/23 11:00 05/04/23 07:48 FiO2 2 05/02/23 15:45 Oxygen Flow Rate (L/min) 1 Oxygen Delivery Method Room Air Weight: 57 kg Body Mass Index (BMI) 20.9 Intake & Output: Intake and Output for Last 24 Hours 05/02/23 05/03/23 05/04/23 23:59 23:59 23:59 Intake Total 2311.92 / 2461.92 1412.90 / 1652.90 720 / 720 Output Total 1220 / 1820 2250 / 2250 Balance 2311.92 / 2461.92 192.90 / -167.10 -1530 / -1530 Lab / Micro Data 05/04/23 05:48 05/04/23 05:48 Labs: Laboratory Results - last 24 hr 05/04/23 05:48: WBC 10.6, RBC 4.95, Hgb 14.5, Hct 44.1, MCV 89.1, MCH 29.3, MCHC 32.9, RDW Std Deviation 48.8 H, RDW Coeff of Nicole 15.1 H, Plt Count 206, MPV 10.0, Immature Gran % (Auto) 0.300, Neut % (Auto) 79.8 H, Lymph % (Auto) 11.6 L, [place] % (Auto) 7.1, Eos % (Auto) 0.8, Baso % (Auto) 0.4, Absolute Neuts (auto) 8.5 H, Absolute Lymphs (auto) 1.23, Nucleated RBC % 0, PT 21.5 H, INR 1.9, Sodium 134 L, Potassium 4.1, Chloride 106, Carbon Dioxide 24.0, Anion Gap 4 L, BUN 19 H, Creatinine 0.78, Estim Creat Clear Calc 44.41, Est GFR (MDRD) Af Amer 92, Est GFR (MDRD) Non-Af 76, BUN/Creatinine Ratio 24.3 H, Glucose 84, Calcium 8.3 L Rhythm Strip Rhythm Strip: Sinus Tach Physical Exam Const alert, oriented x3, no apparent distress, average body habitus and well nourished Constitutional Narrative: Older, normal weight, white female, lying in bed, watching television, appears if she is feeling better today than yesterday, nontoxic HEENT normocephalic, head/scalp atraumatic and moist oral mucous membranes HEENT Narrative: Mallampati 2, no Resp normal respiratory effort, no retractions, no use of accessory muscles and clear to auscultation bilaterally Auscultation: Negative for rales, rhonchi or wheezes Cardio S1 normal heart sound, S2 normal heart sound, no murmurs, no rub, no gallops and no clicks; Negative for regular rhythm Cardio Narrative: Mild tachycardia, rhythm is irregular irregular with intermittent pauses GI normal to inspection, nondistended, normoactive bowel sounds, soft to palpation and non-tender Extremity no clubbing, cyanosis or edema Extremity Narrative: Pedal pulses are 2+ Skin Skin Narrative: No rashes or lesions Neuro oriented x3, moves all extremities and no focal motor deficits Speech: speech normal Psych affect normal Psych Narrative: Appropriate, pleasant Assessment & Plan Assessment/Plan (1) Bradycardia: (2) Ectopic atrial tachycardia: (3) DARYN (acute kidney injury): PLAN: Plan Ectopic atrial tachycardia with episodic bradycardia -Patient with suspected tachybradycardia syndrome/SSS -Plan is for pacemaker tomorrow -Continue to monitor on telemetry -Continue metoprolol 25 mg p.o. twice daily -Hold Coumadin for pacer placement tomorrow -Repeat a.m. INR--> current INR is 1.9 -Echocardiogram showed EF of 51% with moderate tricuspid valve insufficiency, mild pulmonary artery systolic pressure elevation at 40 mmHg and mild biatrial enlargement -Cardiology following-appreciate input -Call cardiology with any issues overnight and avoid digoxin DARYN -Resolved Hypothyroidism -TSH is elevated at 13 and free T4 is elevated as well with a low free T3 -Suspect there may be some medication compliance issues -We will continue levothyroxine and recommend outpatient TSH in 6 weeks Hypertension -Continue metoprolol as ordered -Continue home lisinopril -Restart home Lasix History of tobacco abuse -Recommend ongoing cessation DVT prophylaxis -INR is subtherapeutic at 1.9 and Coumadin on hold for procedure tomorrow -Continue Lovenox CODE STATUS -Full code Charges/Coding Visit Charges Inpatient E&M: 80417 Subs Hosp L2
[2023-05-04] MEDS: Ensure Plus High Protein 120 ML LIQUID PO (13:46)
--- NOTE | 2023-05-04 14:10 | PCM.PN.CARD ---
Subjective Subjective Patient is currently doing well. However she has been having symptomatic episodes of bradycardia and also tachycardia. Telemetry reveals several pauses with the longest one being 6.2 seconds. She also had episodes of tachycardia. Objective Data Vital Signs: Vital Signs Temp Pulse Resp BP Pulse Ox O2 Del Method O2 Flow Rate 97 F L 108 H 19 H 132/71 H 94 Room Air 1 05/04/23 11:00 05/04/23 11:00 05/04/23 11:00 05/04/23 11:00 05/04/23 11:00 05/04/23 13:40 05/04/23 07:48 FiO2 2 05/02/23 15:45 Oxygen Flow Rate (L/min) 1 Oxygen Delivery Method Room Air Weight: 125 lb 10.616 oz Body Mass Index (BMI) 20.9 Intake & Output: Intake and Output for Last 24 Hours 05/02/23 05/03/23 05/04/23 23:59 23:59 23:59 Intake Total 2311.92 / 2461.92 1412.90 / 1652.90 720 / 720 Output Total 1220 / 1820 2250 / 2250 Balance 2311.92 / 2461.92 192.90 / -167.10 -1530 / -1530 Lab / Micro Data 05/04/23 05:48 05/04/23 05:48 Labs: Laboratory Results - last 24 hr 05/04/23 05:48: WBC 10.6, RBC 4.95, Hgb 14.5, Hct 44.1, MCV 89.1, MCH 29.3, MCHC 32.9, RDW Std Deviation 48.8 H, RDW Coeff of Nicole 15.1 H, Plt Count 206, MPV 10.0, Immature Gran % (Auto) 0.300, Neut % (Auto) 79.8 H, Lymph % (Auto) 11.6 L, [place] % (Auto) 7.1, Eos % (Auto) 0.8, Baso % (Auto) 0.4, Absolute Neuts (auto) 8.5 H, Absolute Lymphs (auto) 1.23, Nucleated RBC % 0, PT 21.5 H, INR 1.9, Sodium 134 L, Potassium 4.1, Chloride 106, Carbon Dioxide 24.0, Anion Gap 4 L, BUN 19 H, Creatinine 0.78, Estim Creat Clear Calc 44.41, Est GFR (MDRD) Af Amer 92, Est GFR (MDRD) Non-Af 76, BUN/Creatinine Ratio 24.3 H, Glucose 84, Calcium 8.3 L Rhythm Strip Rhythm Strip: Sinus Tach Cardiology Labs/Tests 05/04/23 05:48: WBC 10.6, RBC 4.95, Hgb 14.5, Hct 44.1, MCV 89.1, MCH 29.3, MCHC 32.9, Plt Count 206, MPV 10.0, Immature Gran % (Auto) 0.300, Neut % (Auto) 79.8 H, Lymph % (Auto) 11.6 L, [place] % (Auto) 7.1, Eos % (Auto) 0.8, Baso % (Auto) 0.4, Absolute Neuts (auto) 8.5 H, Nucleated RBC % 0, PT 21.5 H, INR 1.9, Sodium 134 L, Potassium 4.1, Chloride 106, Carbon Dioxide 24.0, Anion Gap 4 L, BUN 19 H, Creatinine 0.78, Est GFR (MDRD) Af Amer 92, Est GFR (MDRD) Non-Af 76, BUN/Creatinine Ratio 24.3 H, Glucose 84, Calcium 8.3 L Rhythm: EKG: ECHO: Stress Test: Cardiac Cath: PCI: CT Surgery: Holter monitor: EPS: PPM: CXR: Chest CT Scan: Physical Exam Const alert and oriented x3 HEENT normocephalic Eyes no scleral icterus Resp normal respiratory effort Psych mental status grossly normal Assessment & Plan Assessment/Plan (1) Ectopic atrial tachycardia: PLAN: Patient has episodes of tachycardia and bradycardia which are both symptomatic. She appears to be having tachybradycardia syndrome. She may need a permanent pacemaker placed. This was discussed with the patient. Patient is willing to proceed. Risks and benefits explained to the patient and patient understands. Agree with keeping her on a low dose beta-yany for now. (2) HTN (hypertension): QUALIFIERS: Hypertension type: unspecified Qualified Code(s): I10 - Essential (primary) hypertension Charges/Coding Visit Charges Inpatient E&M: 65158 Subs Hosp L2
[2023-05-04] MEDS: 0.9% Saline Lock 10 ML Syringe IV (20:05)
[2023-05-05] VITALS (21 sets, daily range): BP systolic 104–150; BP diastolic 59–107; PULSE 53–140; RESP 13–25; TEMP 36.5–36.7; O2SAT 19–99; BMI 20.7
--- NOTE | 2023-05-05 05:00 | EKG12_ITS ---
Test Reason : Tachycardia Blood Pressure : / mmHG Vent. Rate : 115 BPM Atrial Rate : 000 BPM P-R Int : 000 ms QRS Dur : 096 ms QT Int : 340 ms P-R-T Axes : 000 097 123 degrees QTc Int : 470 ms Atrial fibrillation with rapid ventricular response with premature ventricular or aberrantly conducte d complexes Rightward axis ST & T wave abnormality, consider lateral ischemia Abnormal ECG When compared with ECG of 05-MAY-2023 04:51, MANUAL COMPARISON REQUIRED, DATA IS UNCONFIRMED Confirmed by CAIN SANTIAGO, RAMIN ([id number]), editor map DANIA SERRANO ([id number]) on 05/10/2023 1:24:35 PM Referred By: Kylie Confirmed By:MOLINA BARLOW MD
[2023-05-05] MEDS: Levothyroxine 50 MCG Tablet PO (05:38)
[2023-05-05 05:50] LABS: Absolute Lymphocyte Count 1.35 X10^3/uL (0.83-4.51); Absolute Neutrophil Count 8.2 X10^3/uL (2.0-7.7); Basophil# 0.04 X10^3/uL; Basophil% 0.4 % (0-1); Eosinophil# 0.07 X10^3/uL; Eosinophils% 0.7 % (0-5); Hematocrit 48.2 % (37-47); Hemoglobin 15.4 g/dL (12.0-15.0); Lymphocyte # 1.35 X10^3/ul (0.83-4.51); Lymphocyte % 12.8 % (19-41); Mean Corpuscular Hgb 29.3 pg (27.0-32.0); Mean Corpuscular Volume 91.8 fL (81-99); Mean Platelet Vol. 9.8 fl (6.2-12.0); Monocyte# 0.87 X10^3/uL; Monocyte% 8.3 % (0-10); NRBC Flagged by Analyzer 0 % (0-5); Neutrophil # 8.15 X10^3/uL (2.7-7.7); Neutrophil % 77.4 % (47-70); Platelet Count 237 K/mm3 (150-450); RBC Distribution Width CV 15.2 % (11.6-14.6); RBC Distribution Width SD 50.4 fl (35.1-43.9); Red Blood Count 5.25 M/mm3 (4.2-5.4); White Blood Count 10.5 K/mm3 (4.4-11.0)
[2023-05-05 06:01] LABS: International Normalized Ratio 1.7
[2023-05-05 06:43] LABS: ALB/GLOB Ratio 0.8 RATIO (0.9-2.4); AST(SGOT) 33 U/L (15-37); Alanine Aminotransfer ALT/SGPT 53 U/L (13-56); Albumin, Serum 2.8 g/dL (3.2-5.0); Alkaline Phosphatase 58 U/L (45-117); Anion Gap 5 (5-15); BUN 19 mg/dL (7-18); BUN/Creat Ratio 21.3 RATIO (10-20); Calcium,Total 8.1 mg/dL (8.5-10.1); Chloride 104 mmol/L (98-107); Creatinine, Serum 0.89 mg/dL (0.55-1.02); EST Glomerular Filtration Rate 66 mL/min (>60); Est Glom Filt Rate - Afr Amer 80 mL/min (>60); Estimated Creatinine Clearance 49.64 ml/min; Globulin 3.4 g/dL (2.2-4.2); Glucose 91 mg/dL (74-106); Potassium 4.3 mmol/L (3.5-5.1); Protein, Total 6.2 g/dL (6.4-8.2); Sodium Level 134 mmol/L (136-145)
[2023-05-05] MEDS: Dextrose 5%/0.9% NaCl 1,000 ML 75 ML IV (08:55)
[2023-05-05] MEDS: 0.9% Saline Lock 10 ML Syringe IV (08:55)
[2023-05-05] MEDS: Metoprolol Tartrate 25 MG Tablet PO (11:29)
[2023-05-05] MEDS: Lisinopril 10 MG Tablet PO (11:30)
[2023-05-05 12:23] LABS: Bedside Glucose 116 mg/dL (74-106)
--- NOTE | 2023-05-05 14:30 | CL.IE_ITS ---
Patient: JAYSHREE BOWEN Study Date: 05/05/2023 Performing: Hussain Oakley MD : [id number] Age: 72 Gender: female PROCEDURES PERFORMED LP04-([id number])INITIAL PACER INSERT+DUAL LEADS INDICATIONS Sinoatrial node dysfunction/Sick sinus syndrome PROCEDURE DETAILS The patient was brought to the Catheterization Lab in the postabsorptive nonsedated state. Informed consent was obtained prior to the procedure. Local anesthetic was given subcutaneously to the left subclavian region with Lidocaine 2%. Access was achieved and a guidewire was advanced into the left subclavian vein. Incision was made to the left subclavicular area. PPM ventricular lead was inserted / positioned to right ventricular septal wall. PPM ventricular lead testing performed. PPM ventricular lead testing performed. PPM atrial lead was inserted / positioned to the right atrial appendage. PPM atrial lead testing performed. The Ventricular and Atrial PM lead sutured in place with 2-0 Silk. Device pocket was irrigated with antibiotic. PPM generator was attached to the lead(s) and inserted into the pocket. PPM generator was then interrogated by the cobol programmer. Subcutaneous closure was completed with 3-0 Vicryl. Skin closure was completed with 4-0 Vicryl. Steri-strips applied to left subclavicular incision. Instrument, sponge, and needle counts were noted to be normal. The patient tolerated the procedure well. Estimated Blood Loss: 15 ml's IMPLANTED / EX-PLANTED DEVICES IMPLANTED DEVICE(S): PPM Ventricular lead - Mobile Device Developer: [employer], Model # Tendril STS 52cm 2088TC , Serial # [id number] PPM Atrial lead - Mobile Device Developer: [employer], Model # Tendril STS 46cm 2088TC , Serial # [id number] PPM Generator - Mobile Device Developer: [employer], Model # Assurity MRI pulse generator [id number] , Serial # [id number] DEVICE PARAMETERS ATRIAL LEAD PARAMETERS: P wave- 2.6 (mV) threshold- 1.0 (V) impedence- 550 (OHMS) VENTRICULAR LEAD PARAMETERS: R wave- 4.4 (mV) threshold- 0.75 (V) impedence- 630 (OHMS) DEVICE PARAMETERS: Mode- DDDR Lower rate- 60 Upper rate- 120 CONCLUSIONS / RECOMMENDATIONS Device Conclusions: Successful implantation of a dual chamber pacemaker Device Recommendations: Follow up with Primary Care Physician PROCEDURE MEDICATIONS Versed 1 mg IV Fentanyl 50 mcg IV Versed 1 mg IV Oxygen: 2 L/min via nasal cannula Ancef 1 Gm IV @ 05/05/2023 12:34:29 Signed By Hussain Oakley MD On 05/05/2023 14:29:22 Hussain Oakley MD
--- NOTE | 2023-05-05 14:35 | PN.HOSP_ITS ---
Reason for Visit Reason for Visit: Palpitations Subjective Subjective Patient still with intermittent bradycardia overnight. Plan is for pacemaker later today. We did discuss that the pacemaker will prevent her bradycardia and then that we can use more medication to control her heart rates when she has tachycardia. She voiced understanding. Family at bedside Objective Data Objective Data Vital Signs: Vital Signs Temp Pulse Resp BP Pulse Ox O2 Del Method O2 Flow Rate 98.0 F 134 H 19 H 141/103 H 98 Nasal Cannula 2 05/05/23 10:00 05/05/23 11:29 05/05/23 10:00 05/05/23 11:29 05/05/23 10:00 05/05/23 10:00 05/05/23 10:00 FiO2 2 05/02/23 15:45 Oxygen Flow Rate (L/min) 2 Oxygen Delivery Method Nasal Cannula Weight: 56.699 kg Body Mass Index (BMI) 20.7 Intake & Output: Intake and Output for Last 24 Hours 05/03/23 05/04/23 05/05/23 23:59 23:59 23:59 Intake Total 1412.90 / 1652.90 1600 / 1600 353.75 / 353.75 Output Total 1220 / 1820 3450 / 3850 900 / 900 Balance 192.90 / -167.10 -1850 / -2250 -546.25 / -546.25 Lab / Micro Data 05/05/23 05:33 05/05/23 05:33 Labs: Laboratory Results - last 24 hr 05/05/23 05:33: WBC 10.5, RBC 5.25, Hgb 15.4 H, Hct 48.2 H, MCV 91.8, MCH 29.3, MCHC 32.0, RDW Std Deviation 50.4 H, RDW Coeff of Nicole 15.2 H, Plt Count 237, MPV 9.8, Immature Gran % (Auto) 0.400, Neut % (Auto) 77.4 H, Lymph % (Auto) 12.8 L, [place] % (Auto) 8.3, Eos % (Auto) 0.7, Baso % (Auto) 0.4, Absolute Neuts (auto) 8.2 H, Absolute Lymphs (auto) 1.35, Nucleated RBC % 0, PT 20.0 H, INR 1.7, Sodium 134 L, Potassium 4.3, Chloride 104, Carbon Dioxide 25.0, Anion Gap 5, BUN 19 H, Creatinine 0.89, Estim Creat Clear Calc 49.64, Est GFR (MDRD) Af Amer 80, Est GFR (MDRD) Non-Af 66, BUN/Creatinine Ratio 21.3 H, Glucose 91, Calcium 8.1 L , Total Bilirubin 1.00, AST 33, ALT 53, Alkaline Phosphatase 58, Total Protein 6.2 L, Albumin 2.8 L, Globulin 3.4, Albumin/Globulin Ratio 0.8 L 05/05/23 12:02: POC Glucose 116 H Rhythm Strip Rhythm Strip: Sinus Tach Physical Exam Const alert, oriented x3, no apparent distress, average body habitus and well nourished Constitutional Narrative: Older, normal weight, white female, lying in bed, nursing and family at bedside, nontoxic HEENT normocephalic, head/scalp atraumatic and moist oral mucous membranes Eyes Eyes Narrative: No icterus. Glasses Resp normal respiratory effort, no retractions, no use of accessory muscles and clear to auscultation bilaterally Auscultation: Negative for rales, rhonchi or wheezes Cardio regular rate, S1 normal heart sound, S2 normal heart sound, no murmurs, no rub, no gallops and no clicks; Negative for regular rhythm Cardio Narrative: Mild tachycardia, rhythm is irregular irregular GI normal to inspection, nondistended, normoactive bowel sounds, soft to palpation and non-tender Extremity no clubbing, cyanosis or edema Extremity Narrative: Pedal pulses are 2+ Skin Skin Narrative: No rashes or lesions Neuro oriented x3, moves all extremities and no focal motor deficits Speech: speech normal Psych affect normal Psych Narrative: Appropriate, pleasant Assessment & Plan Assessment/Plan (1) Bradycardia: (2) Ectopic atrial tachycardia: (3) DARYN (acute kidney injury): (4) (HFpEF) heart failure with preserved ejection fraction: (5) PAH (pulmonary artery hypertension): PLAN: Plan Ectopic atrial tachycardia with episodic bradycardia -Patient with suspected tachybradycardia syndrome/SSS -Pacemaker being placed this afternoon -Continue to monitor on telemetry -Continue metoprolol 25 mg p.o. twice daily and monitor for cardiology changes post pacemaker placement -Restart Coumadin when okay with cardiology -A.m. INR today is 1.7 -Echocardiogram showed EF of 51% with moderate tricuspid valve insufficiency, mild pulmonary artery systolic pressure elevation at 40 mmHg and mild biatrial enlargement -Cardiology following-appreciate input -Call cardiology with any issues overnight and avoid digoxin Compensated HFpEF -Continue home Lasix -No diastolic dysfunction noted on echocardiogram however evaluation of that is limited due to arrhythmia but patient does have pulmonary hypertension with a systolic pressure of 40 mmHg PAH -Suspect who group 3 -Continue diuretics -Mild Hypothyroidism -TSH is elevated at 13 and free T4 is elevated as well with a low free T3 -Suspect there may be some medication compliance issues -We will continue levothyroxine and recommend outpatient TSH in 6 weeks Hypertension -Continue metoprolol as ordered -Continue home lisinopril -Continue home Lasix History of tobacco abuse -Recommend ongoing cessation DVT prophylaxis -INR is subtherapeutic at 1.9 and Coumadin on hold for procedure tomorrow -Continue Lovenox CODE STATUS -Full code Charges/Coding Visit Charges Inpatient E&M: 05522 Subs Hosp L2
[2023-05-05] MEDS: Furosemide 40 MG Tablet PO (17:36)
[2023-05-05] MEDS: Metoprolol Tartrate 50 MG Tablet PO (17:37)
[2023-05-05] MEDS: Ensure Plus High Protein 120 ML LIQUID PO (20:49)
[2023-05-05] MEDS: Heparin Injection (Vial) 5,000 UNIT/ML VIAL 5000 UNIT SC (20:49)
--- NOTE | 2023-05-05 23:30 | EKG12_ITS ---
Test Reason : CONSULT Blood Pressure : / mmHG Vent. Rate : 135 BPM Atrial Rate : 270 BPM P-R Int : 000 ms QRS Dur : 082 ms QT Int : 308 ms P-R-T Axes : 249 090 127 degrees QTc Int : 462 ms Atrial flutter with 2:1 A-V conduction Rightward axis Nonspecific ST abnormality Abnormal ECG When compared with ECG of 03-MAY-2023 06:59, MANUAL COMPARISON REQUIRED, DATA IS UNCONFIRMED Confirmed by THAD SANTIAGO, JESSICA ([id number]), web content editor DANIA SERRANO ([id number]) on 05/06/2023 10:39:39 AM Referred By: MICHELLE Confirmed By:JESSICA ONEIL MD
[2023-05-06] VITALS (7 sets, daily range): BP systolic 144–157; BP diastolic 91–108; PULSE 72–127; RESP 18–19; TEMP 35.9–36.4; O2SAT 94–99
[2023-05-06] MEDS: Acetaminophen 325 MG Tablet 650 MG PO (00:09)
[2023-05-06] MEDS: Metoprolol Tartrate 25 MG Tablet PO (00:29)
--- NOTE | 2023-05-06 05:55 | RAD_ITS ---
INDICATION: Post permanent ICD/Pacemaker -- inspiration/expiration. Arms Down. Wet read to MD EXAMINATION/TECHNIQUE: X-RAY - AP and lateral views of chest, inspiration and expiration views COMPARISON: AP chest x-ray from 05/02/2023 FINDINGS: LINES/DEVICES: Left AICD in place. LUNGS: Mild bilateral perihilar interstitial prominence again noted. Mild bibasilar opacities. Small linear scarlike opacity right upper lung. No sizable pleural effusion identified. No detectable pneumothorax. MEDIASTINUM AND CARDIOVASCULAR STRUCTURES: Stable slightly enlarged heart shadow. Atherosclerotic calcifications along aorta. BONES AND SOFT TISSUES: Skeletal degenerative changes. Surgical clips within right upper abdomen. RAD/Chest 3 View IMPRESSION: No pneumothorax detected. Mild cardiomegaly and mild bilateral pulmonary opacity changes. Electronically Signed: Mario Maldonado MD at 4:56 EDT ,
[2023-05-06] MEDS: Levothyroxine 50 MCG Tablet PO (06:39)
[2023-05-06 06:48] LABS: Absolute Lymphocyte Count 1.23 X10^3/uL (0.83-4.51); Absolute Neutrophil Count 6.7 X10^3/uL (2.0-7.7); Basophil# 0.04 X10^3/uL; Basophil% 0.4 % (0-1); Eosinophil# 0.04 X10^3/uL; Eosinophils% 0.4 % (0-5); Hematocrit 43.9 % (37-47); Hemoglobin 14.6 g/dL (12.0-15.0); Lymphocyte # 1.23 X10^3/ul (0.83-4.51); Lymphocyte % 13.8 % (19-41); Mean Corp Hgb Conc 33.3 g/dL (32-36); Mean Corpuscular Hgb 29.7 pg (27.0-32.0); Mean Corpuscular Volume 89.4 fL (81-99); Mean Platelet Vol. 9.4 fl (6.2-12.0); Monocyte# 0.86 X10^3/uL; Monocyte% 9.7 % (0-10); NRBC Flagged by Analyzer 0 % (0-5); Neutrophil # 6.72 X10^3/uL (2.7-7.7); Neutrophil % 75.5 % (47-70); Platelet Count 181 K/mm3 (150-450); RBC Distribution Width CV 15.3 % (11.6-14.6); Red Blood Count 4.91 M/mm3 (4.2-5.4); White Blood Count 8.9 K/mm3 (4.4-11.0)
[2023-05-06 07:12] LABS: Anion Gap 5 (5-15); BUN 16 mg/dL (7-18); Calcium,Total 8.1 mg/dL (8.5-10.1); Chloride 106 mmol/L (98-107); Creatinine, Serum 0.76 mg/dL (0.55-1.02); EST Glomerular Filtration Rate 79 mL/min (>60); Est Glom Filt Rate - Afr Amer 95 mL/min (>60); Estimated Creatinine Clearance 44.18 ml/min; Glucose 80 mg/dL (74-106); Potassium 4.1 mmol/L (3.5-5.1); Sodium Level 137 mmol/L (136-145)
--- NOTE | 2023-05-06 07:58 | PN.CARD_ITS ---
Subjective Subjective Patient seen and evaluated. Doing well post procedure. Objective Data Vital Signs: Vital Signs Temp Pulse Resp BP Pulse Ox O2 Del Method O2 Flow Rate 97.6 F L 84 19 H 144/98 H 94 Room Air 2 05/06/23 03:00 05/06/23 03:00 05/06/23 03:00 05/06/23 03:00 05/06/23 07:46 05/06/23 07:46 05/06/23 03:00 FiO2 2 05/02/23 15:45 Oxygen Flow Rate (L/min) 2 Oxygen Delivery Method Room Air Weight: 125 lb Body Mass Index (BMI) 20.7 Intake & Output: Intake and Output for Last 24 Hours 05/04/23 05/05/23 05/06/23 23:59 23:59 23:59 Intake Total 1600 / 1600 593.75 / 1073.75 880 / 880 Output Total 3450 / 3850 900 / 1400 1000 / 1000 Balance -1850 / -2250 -306.25 / -326.25 -120 / -120 Lab / Micro Data 05/06/23 06:30 05/06/23 06:30 Labs: Laboratory Results - last 24 hr 05/05/23 12:02: POC Glucose 116 H 05/06/23 06:30: WBC 8.9, RBC 4.91, Hgb 14.6, Hct 43.9, MCV 89.4, MCH 29.7, MCHC 33.3, RDW Std Deviation 49.0 H, RDW Coeff of Nicole 15.3 H, Plt Count 181, MPV 9.4, Immature Gran % (Auto) 0.200, Neut % (Auto) 75.5 H, Lymph % (Auto) 13.8 L, [place] % (Auto) 9.7, Eos % (Auto) 0.4, Baso % (Auto) 0.4, Absolute Neuts (auto) 6.7, Absolute Lymphs (auto) 1.23, Nucleated RBC % 0, Sodium 137, Potassium 4.1, Chloride 106, Carbon Dioxide 26.0, Anion Gap 5, BUN 16, Creatinine 0.76, Estim Creat Clear Calc 44.18, Est GFR (MDRD) Af Amer 95, Est GFR (MDRD) Non-Af 79, BUN/Creatinine Ratio 21.0 H, Glucose 80, Calcium 8.1 L Rhythm Strip Rhythm Strip: Sinus Tach Cardiology Labs/Tests 05/06/23 06:30: WBC 8.9, RBC 4.91, Hgb 14.6, Hct 43.9, MCV 89.4, MCH 29.7, MCHC 33.3, Plt Count 181, MPV 9.4, Immature Gran % (Auto) 0.200, Neut % (Auto) 75.5 H , Lymph % (Auto) 13.8 L, [place] % (Auto) 9.7, Eos % (Auto) 0.4, Baso % (Auto) 0.4, Absolute Neuts (auto) 6.7, Nucleated RBC % 0, Sodium 137, Potassium 4.1, Chloride 106, Carbon Dioxide 26.0, Anion Gap 5, BUN 16, Creatinine 0.76, Est GFR (MDRD) Af Amer 95, Est GFR (MDRD) Non-Af 79, BUN/Creatinine Ratio 21.0 H, Gluco se 80, Calcium 8.1 L Rhythm: EKG: ECHO: Stress Test: Cardiac Cath: PCI: CT Surgery: Holter monitor: EPS: PPM: CXR: Chest CT Scan: Radiography Diagnostic Testing: Radiology Impression Chest X-Ray 05/06/23 05:55 IMPRESSION: No pneumothorax detected. Mild cardiomegaly and mild bilateral pulmonary opacity changes. Electronically Signed: Mario Maldonado MD at 4:56 EDT , Physical Exam Const alert, oriented x3 and no apparent distress General Appearance: cooperative HEENT hearing grossly normal bilaterally Head and Scalp: atraumatic Eyes EOMs intact bilaterally Neck General: normal visual inspection Chest inspection of chest normal and palpation of chest normal Resp normal respiratory effort Auscultation: clear to auscultation bilaterally Cardio S1 normal heart sound and S2 normal heart sound Jugular Venous Distention: JVD Rhythm: other Other Details: Irregular rhythm GI normal to inspection, nondistended, normoactive bowel sounds Extremity normal capillary refill and no pedal edema Peripheral Pulses: Yes pulses 2+ throughout and femoral pulses present Skin no rashes or lesions noted Neuro oriented x3 and CN's II-XII intact bilaterally Psych Appearance: grossly normal and appropriate Assessment & Plan Assessment/Plan (1) Ectopic atrial tachycardia: PLAN: She appears to be in rapid regular tachycardia with inverted P waves which is suggestive of an ectopic atrial tachycardia or atypical atrial flutter. My recommendation at this time is to continue her beta-yany * She underwent placement of a dual-chamber pacemaker yesterday and pacemaker appears to be functioning well. * Pacemaker was interrogated today is functioning well patient in atrial flutter with 2 1 block. * Chest x-ray demonstrates no abnormalities * Will increase metoprolol to 75 mg twice a day * Hold anticoagulation until seen in the office * Can discharge later today. (2) HTN (hypertension): QUALIFIERS: Hypertension type: unspecified Qualified Code(s): I10 - Essential (primary) hypertension PLAN: She does have a history of hypertension. We will continue the beta-yany and the lisinopril. After we increase the dose of the beta-yany we may reduce the dose of the lisinopril. Echocardiogram demonstrated preserved left ventricular systolic function. Thank you for allowing me to participate in the care of your patient. Please don't hesitate to call if any issues arise.
--- NOTE | 2023-05-06 08:00 | DCINST_ITS ---
Discharge Instructions Diet Discharge Diet: No restrictions (as you feel able. No excessive stretching. No lifting your arm over your head (keep elbow below shoulder level) until seen for your pacemaker check. Do not lift your elbow away from your side until you are seen for your first visit. Keep the arm sling on if it helps remind you not to lift your arm.) Activity Discharge Activity: May Not Drive May shower in (days): 2 Additional Activity Instructions:: May shower or bathe on [day 3]. Do not scrub the incision or soak in the tub. Just wash with soap and let the water run over the incision. Gently pat dry with towel. Medications: Take your pain medication as directed. Refer to your discharge instruction sheet for a list of medications you are to take. Dressing / Incision Call your doctor if your incision/area has: Continuous Slow Oozing, Sudden Increased Bleeding, Increased Pain/ Swelling, Increased Redness, Foul Smelling Discharge and Swelling at the incision site Call your doctor if you observe: Fever of 101 or Higher, Shortness of breath, Dizziness, Fainting spells, Swelling in the ankles, Chest pain, Prolonged hiccupping and Increased palpitations (irregular heartbeat) Suture Line Care: Avoid Pulling/Pushing and Avoid Pinching/Bending Cleanse incision/area with: Keep Dressing Clean & Dry Additional Dressing/Incision Instructions:: When dressing is removed, wash and dry incision. Keep covered with a light bandage if it is rubbing against your clothing. Do not cover the incision with an airtight bandage. Change the bandage daily. Do not remove steri strips. The strips will fall off on their own. Follow Up Care Please Follow Up With: Hussain Oakley MD When: Pacer follow-up on 05/11/2022 at 10:30 AM Test Results: Test results from this visit will be discussed in further detail at your follow- up appointment, if applicable. Discharge Plan Admission Admit Date/Time: 05/02/23 11:04 Attending Provider: Shi Arroyo Primary Care Provider: Lei Acevedo Consulting Providers: Hussain Oakley; Medhat Walters Discharge Orders/Prescriptions Prescriptions: No Action warfarin 3 mg tablet 1.5 mg PO [facility] Patient Comments: TAKE 1 TABLET BY MOUTH ONCE DAILY DIRECTED levothyroxine 50 mcg Tablet 50 mcg PO 0600 Qty: 30 0RF lisinopril 10 mg Tablet 10 mg PO BID Qty: 60 0RF metoprolol tartrate 50 mg Tablet 50 mg PO BID Qty: 60 0RF furosemide [Lasix] 40 mg tablet 40 mg PO DAILY Qty: 30 0RF potassium chloride [K-Tab] 20 mEq tablet extended release 20 meq PO DAILY Qty: 30 0RF warfarin 1 mg tablet 1 mg PO WE Referrals / Follow Up: Lei Acevedo MD [Primary Care Provider] -
[2023-05-06] MEDS: Metoprolol Tartrate 25 MG Tablet 75 MG PO (10:13)
[2023-05-06] MEDS: Furosemide 40 MG/4 ML Vial IV (10:13)
[2023-05-06] MEDS: 0.9% Saline Lock 10 ML Syringe IV (10:13)
[2023-05-06] MEDS: Lisinopril 10 MG Tablet PO (10:14)
--- NOTE | 2023-05-06 10:50 | DS.PCM_ITS ---
Providers Date of Admission: 05/02/23 Date of Discharge: 05/06/23 Primary Care Physician: Dr. Lei Acevedo MD Consultations 05/02/23 11:37 Consult: Cardiology Routine Consulting Provider: Hussain Oakley Reason for Consult: afib w RVR EMERGENT Consult: No MD Notified: Yes Date Notified: 05/02/23 Time Notified: 11:25 Method of Notification: Verbal Reason For Visit: TACHYCARDIA Diagnosis Discharge Diagnosis (1) Ectopic atrial tachycardia: Status: Acute Code(s): I47.1 - Supraventricular tachycardia (2) HTN (hypertension): Status: Chronic Code(s): I10 - Essential (primary) hypertension Qualifiers: Hypertension type: unspecified Qualified Code(s): I10 - Essential (primary) hypertension Plan Medications at Discharge Home Medications warfarin 3 mg tablet 1.5 mg PO SUMOTHFRSA BLOOD THINNER 06/13/21 furosemide 40 mg tablet (Lasix) 40 mg PO DAILY #30 tabs 06/15/21 levothyroxine 50 mcg tablet 50 mcg PO 0600 #30 tabs 06/15/21 lisinopril 10 mg tablet 10 mg PO BID #60 tabs 06/15/21 potassium chloride 20 mEq tablet,extended release (K-Tab) 20 meq PO DAILY #30 tabs 06/15/21 warfarin 1 mg tablet 1 mg PO WE Blood Thinner 05/02/23 metoprolol tartrate 25 mg tablet 75 mg (3 x 25 mg) PO BID #180 tabs 05/06/23 Hospital Course Operations - (Pacemaker placement) Procedures 2-D Echocardiogram, EKG and - (Chest x-ray/CT brain/CTA chest) Summary of Care Provided Minutes Spent on Discharge: 37 Hospital Course: Patient is a 72-year-old white female who presented to the emergency department with palpitations and generally not feeling well. Patient reported that her heart rate was noted to be in the 30s earlier on the day of presentation however when she presented to the emergency department she was in the 150s. It did a ppear to be sinus tachycardia initially. The patient was resumed on her oral metoprolol 50 mg which did not help and then she received 5 mg of IV metoprolol which also did not help. Her heart rate still remained in the 150s. She was brought to the floor and received 6 mg of adenosine which did not affect her heart rate and later 12 mg was given and this did show underlying A-fib with RVR. She has a previous history of atrial fibrillation with previous ablations that were done at [facility]. An echocardiogram was performed and demonstrated an EF of 51%, moderate tricuspid valve insufficiency and pulmonary artery systolic pressures of 40 mmHg. She had mildly enlarged bi lateral atrium. Cardiology was consulted and they felt her underlying rhythm was likely an ectopic atrial tachycardia due to the identification of inverted P waves and regular rate. She was given many medications to try to obtain rate control including amiodarone, Cardizem, metoprolol, and 1 dose of digoxin. She did have a very symptomatic bradycardic event on the a.m. of 05/03/2023 at which time she got extremely lightheaded. Heart rates were in the 30s and atropine was given. Her heart rate did improve however she continued to have intermittent pauses with bradycardia and the diagnosis of sick sinus syndrome was made. She was maintained on her beta-yany and anticoagulation was held and she was taken for pacemaker placement on 05/06/2023. Dual-chamber pacemaker was placed and function well postplacement with interrogation showing atrial flutter with 2 1 block. Heart rates were well controlled. Her metoprolol was increased to 75 mg p.o. twice daily and she was maintained on her other antihypertensives and putting her Lasix and lisinopril for now. Her blood pressure will be reevaluated with increased dose of metoprolol next week when she follows up with cardiology for post pacemaker placement follow-up. She was feeling much better with the pacemaker placement and her heart rate was more stable. She was able to be discharged in stable condition on 05/06/2023. We will continue to hold her anticoagulation until she follows up with cardiology to assure there is no bleeding in the pocket where her pacer was placed. She is to keep her arm in the sling and avoid moving her arm away from her side. Prescriptions for her new dose of metoprolol were sent to the pharmacy. She states she has 50 mg tablets at home and I did tell her she could utilize those taking 1-1/2 tablets twice a day if she so desired until she runs out. She has a follow-up appointment with Dr. Oakley on 05/11/2023 at 10:30 in the morning. We have asked her to follow-up with her primary care physician within the next 2 weeks. Discharge diagnoses: Ectopic atrial tachycardia Atrial fibrillation Sick sinus syndrome Compensated HFpEF PAH who group 3 Hypothyroidism Hypertension History of tobacco abuse Physical Exam Narrative Patient states she is feeling so much better since the pacemaker was placed. Const alert, oriented x3, no apparent distress, average body habitus and well nourished Constitutional Narrative: Older, normal weight, white female, sitting up in bed, watching television, patient appears comfortable and nontoxic, left arm in sling General Appearance: cooperative, comfortable, well kempt and well developed Orientation / Consciousness: awake, oriented to person, oriented to place and oriented to time Exam Limitations: no limitations HEENT normocephalic, head/scalp atraumatic and moist oral mucous membranes Eyes PERRL, EOMs intact bilaterally and conjunctivae normal Eyes Narrative: No icterus. Glasses Neck no lymphadenopathy and supple Neck Narrative: Trachea midline, no thyroid enlargement Resp normal respiratory effort, no retractions, no use of accessory muscles and clear to auscultation bilaterally Auscultation: Negative for rales, rhonchi or wheezes Cardio regular rate, S1 normal heart sound, S2 normal heart sound, no murmurs, no rub, no gallops and no clicks; Negative for regular rhythm Cardio Narrative: Paced rhythm GI normal to inspection, nondistended, normoactive bowel sounds, soft to palpation and non-tender Extremity no clubbing, cyanosis or edema Extremity Narrative: Pedal pulses are 2+, left upper extremity in sling with recent pacemaker placement Skin no rashes or lesions noted, skin turgor normal and no jaundice Skin Narrative: Pacer dressing clean dry and intact Neuro oriented x3, CN's II-XII intact bilaterally, moves all extremities, no focal motor deficits and no sensory deficits noted Sensorium / Orientation: awake and alert Speech: speech normal Psych affect normal Psych Narrative: Appropriate, pleasant Weight / BMI Weight Weight: 56.699 kg Body Mass Index (BMI) 20.7 ABG / Lab / Microbiology Data 05/06/23 06:30 05/06/23 06:30 Laboratory: Laboratory Results - last 24 hr 05/05/23 12:02: POC Glucose 116 H 05/06/23 06:30: WBC 8.9, RBC 4.91, Hgb 14.6, Hct 43.9, MCV 89.4, MCH 29.7, MCHC 33.3, RDW Std Deviation 49.0 H, RDW Coeff of Nicole 15.3 H, Plt Count 181, MPV 9.4, Immature Gran % (Auto) 0.200, Neut % (Auto) 75.5 H, Lymph % (Auto) 13.8 L, Angelina % (Auto) 9.7, Eos % (Auto) 0.4, Baso % (Auto) 0.4, Absolute Neuts (auto) 6.7, Absolute Lymphs (auto) 1.23, Nucleated RBC % 0, Sodium 137, Potassium 4.1, Chloride 106, Carbon Dioxide 26.0, Anion Gap 5, BUN 16, Creatinine 0.76, Estim Creat Clear Calc 44.18, Est GFR (MDRD) Af Amer 95, Est GFR (MDRD) Non-Af 79, BUN/Creatinine Ratio 21.0 H, Glucose 80, Calcium 8.1 L Radiography Diagnostic Testing: Radiology Impression Chest X-Ray 05/06/23 05:55 IMPRESSION: No pneumothorax detected. Mild cardiomegaly and mild bilateral pulmonary opacity changes. Electronically Signed: Mario Maldonado MD at 4:56 EDT , D/C Instructions Discharge Diet: No restrictions (as you feel able. No excessive stretching. No lifting your arm over your head (keep elbow below shoulder level) until seen for your pacemaker check. Do not lift your elbow away from your side until you are seen for your first visit. Keep the arm sling on if it helps remind you not to lift your arm.) May shower in (days): 2 Additional Activity Instructions: May shower or bathe on [day 3]. Do not scrub the incision or soak in the tub. Just wash with soap and let the water run over the incision. Gently pat dry with towel. Medications: Take your pain medication as directed. Refer to your discharge instruction sheet for a list of medications you are to take. Call your doctor if your incision/area has: Continuous Slow Oozing, Sudden Increased Bleeding, Increased Pain/ Swelling, Increased Redness, Foul Smelling Discharge and Swelling at the incision site Call your doctor if you observe: Fever of 101 or Higher, Shortness of breath, Dizziness, Fainting spells, Swelling in the ankles, Chest pain, Prolonged hiccupping and Increased palpitations (irregular heartbeat) Suture Line Care: Avoid Pulling/Pushing and Avoid Pinching/Bending Cleanse incision/area with: Keep Dressing Clean & Dry Additional Dressing/Incision Instructions: When dressing is removed, wash and dry incision. Keep covered with a light bandage if it is rubbing against your clothing. Do not cover the incision with an airtight bandage. Change the bandage daily. Do not remove steri strips. The strips will fall off on their own. Please Follow Up With: Hussain Oakley MD When: Pacer follow-up on 05/11/2022 at 10:30 AM Meaningful Use Info Meaningful Use Diagnoses (Choose all that apply): None applicable Discharge Plan Admission Admit Date/Time: 05/02/23 11:04 Primary Reason for Your Visit: Palpitations Attending Provider: Shi Arroyo Primary Care Provider: Lei Acevedo Consulting Providers: Hussain Oakley; Medhat Walters Instructions Additional Instructions / Restrictions: 1. Please hold anticoagulation until you are evaluated for your post pacer appointment with cardiology Discharge Orders/Prescriptions Prescriptions: New metoprolol tartrate 25 mg Tablet 75 mg PO BID Qty: 180 1RF Continued levothyroxine 50 mcg Tablet 50 mcg PO 0600 Qty: 30 0RF lisinopril 10 mg Tablet 10 mg PO BID Qty: 60 0RF furosemide [Lasix] 40 mg tablet 40 mg PO DAILY Qty: 30 0RF potassium chloride [K-Tab] 20 mEq tablet extended release 20 meq PO DAILY Qty: 30 0RF Held warfarin 3 mg tablet 1.5 mg PO SUMOTHFRSA Hold Instructions: Hold until instructed to restart by Dr. Oakley Patient Comments: TAKE 1 TABLET BY MOUTH ONCE DAILY DIRECTED warfarin 1 mg tablet 1 mg PO WE Hold Instructions: Hold until instructed to restart by Dr. Oakley Discontinued metoprolol tartrate 50 mg Tablet 50 mg PO BID Qty: 60 0RF Referrals / Follow Up: Hussain Oakley MD [Med Staff - Active Staff] - 05/11/23 10:30 am (Pacer follow up) Lei Acevedo MD [Primary Care Provider] - Within 2 Weeks Disposition Disposition (needs filled in before D/C Order can be placed): Home, Self Care Charges/Coding Visit Charges Inpatient E&M: 94620 Disch Hosp >30min
--- NOTE | 2023-05-06 11:22 | CASEMGMT ---
BRITTNEY DANG NOTE: Pt being discharged home. BRITTNEY CM to room. Pt sitting up in chair in room. Introduced self and role. Pt denies having any discharge planning needs or concerns and denies needing HHC. Yvonne ESCOBAR RN CM
== END 2023-05-06 15:23 | disposition home or self-care (01) | DRG 243 ==
LOC: ED 02:12 → PCU 11:31
PROVIDERS: Family Medicine; Internal Medicine Cardiovascular Disease; Emergency Provider Emergency Medicine; PCP Family Medicine; Visit Provider Internal Medicine
DX: I47.1 Supraventricular tachycardia (principal); I50.32 Chronic diastolic (congestive) heart failure; N17.9 Acute kidney failure, unspecified; I27.20 Pulmonary hypertension, unspecified; I49.5 Sick sinus syndrome; I48.91 Unspecified atrial fibrillation; I11.0 Hypertensive heart disease with heart failure; I48.92 Unspecified atrial flutter; E78.5 Hyperlipidemia, unspecified; I45.9 Conduction disorder, unspecified; R00.1 Bradycardia, unspecified; I07.1 Rheumatic tricuspid insufficiency; E03.9 Hypothyroidism, unspecified; Z79.01 Long term (current) use of anticoagulants; Z87.891 Personal history of nicotine dependence; Z95.0 Presence of cardiac pacemaker
CPT/HCPCS: 33208; 36415; 70450; 71045; 71047; 71275; 80048; 80053; 82962; 84439; 84443; 84481; 84484; 85025; 85610; 93005; 93306; 94762; 97802; 99152; 99153; 99285; J7030; J7040; J7050; Q9967; A4216; J0153; J1940

== ENCOUNTER 2023-07-24 13:18 | Inpatient (IN) | payer MEDICARE, SELFPAY ==
[2023-07-24] VITALS (11 sets, daily range): BP systolic 85–131; BP diastolic 51–94; PULSE 106–182; RESP 16–26; TEMP 36.4–36.9; O2SAT 83–100; BMI 21.9
--- NOTE | 2023-07-24 13:56 | EKG12_ITS ---
Test Reason : GI BLEED Blood Pressure : / mmHG Vent. Rate : 166 BPM Atrial Rate : 000 BPM P-R Int : 000 ms QRS Dur : 076 ms QT Int : 240 ms P-R-T Axes : 000 102 154 degrees QTc Int : 398 ms Critical Test Result: High HR Atrial fibrillation with rapid ventricular response Rightward axis Biventricular hypertrophy Septal infarct , age undetermined Marked ST abnormality, possible lateral subendocardial injury Abnormal ECG Confirmed by CAIN SANTIAGO, RAMIN ([id number]), commercial production editor FLO GARCIA ([id number]) on 07/27/2023 10:36:21 AM Referred By: Confirmed By:MOLINA BARLOW MD
--- NOTE | 2023-07-24 14:15 | RAD_ITS ---
INDICATION: dyspnea EXAMINATION/TECHNIQUE: X-RAY - XR Chest 1 View COMPARISON: Prior study dated: May 06, [address] dated May 0212 04 FINDINGS: LINES/DEVICES: There is a dual-lead cardiac pacer device in place. LUNGS: There is a nonspecific left basilar opacity. There are stable chronic appearing interstitial markings within the mid and lower lungs. No pneumothorax. MEDIASTINUM AND CARDIOVASCULAR STRUCTURES: There is stable cardiomegaly. Central airways and mediastinal contour are unremarkable. BONES AND SOFT TISSUES: Unremarkable. RAD/Chest 1 View (Portable) IMPRESSION: Indeterminate left basilar opacity may reflect focal consolidation. Electronically Signed: Frida Grace MD at 14:58 EDT ,
[2023-07-24 14:19] LABS: Absolute Lymphocyte Count 0.65 X10^3/uL (0.83-4.51); Basophil# 0.03 X10^3/uL; Basophil% 0.3 % (0-1); Eosinophil# 0.01 X10^3/uL; Eosinophils% 0.1 % (0-5); Hematocrit 52.9 % (37-47); Lymphocyte # 0.65 X10^3/ul (0.83-4.51); Lymphocyte % 6.3 % (19-41); Mean Corp Hgb Conc 32.1 g/dL (32-36); Mean Corpuscular Hgb 28.5 pg (27.0-32.0); Mean Corpuscular Volume 88.8 fL (81-99); Mean Platelet Vol. 10.3 fl (6.2-12.0); Monocyte# 0.53 X10^3/uL; Monocyte% 5.1 % (0-10); NRBC Flagged by Analyzer 0 % (0-5); Neutrophil # 9.03 X10^3/uL (2.7-7.7); Neutrophil % 87.5 % (47-70); Platelet Count 232 K/mm3 (150-450); RBC Distribution Width CV 18.8 % (11.6-14.6); RBC Distribution Width SD 58.5 fl (35.1-43.9); Red Blood Count 5.96 M/mm3 (4.2-5.4); White Blood Count 10.3 K/mm3 (4.4-11.0)
[2023-07-24] MEDS: 0.9% Normal Saline (1000mL) 1,000 ML 999 ML IV ×2 (14:23→14:24)
--- NOTE | 2023-07-24 14:24 | NURSING ---
BLUE TOP HEMOLIZED
--- NOTE | 2023-07-24 14:38 | EX.ED.DYSGE1 ---
HPI History of Present Illness Chief Complaint: GI Bleed Informant: patient and friend Narrative Narrative: 72-year-old female presenting to the emergency department with a chief complaint of vomiting diarrhea. Patient has history of paroxysmal atrial fibrillation and is status post ablation. She continues to have intermittent episodes of A-fib. She states that she had some shortness of breath about 3 days ago. No significant cough or fever. Her great grandson has been ill with a stomach virus and last night she developed vomiting and diarrhea which has persisted through the morning. She last anything to eat or drink yesterday evening. She has a pacemaker for tachybradycardia syndrome and is currently on Coumadin. Patient denies any syncope. She does note that her stool was quite dark this morning. She states that several weeks ago she had adjustment in her levothyroxine. The patient states that she did take her metoprolol yesterday. [facility] Medical History (HFpEF) heart failure with preserved ejection fraction Claudication Diastolic CHF Ectopic atrial tachycardia Elevated TSH Former heavy cigarette smoker (20-39 per day) Former tobacco use History of goiter HLD (hyperlipidemia) HTN (hypertension) Hypothyroidism PAH (pulmonary artery hypertension) Paroxysmal atrial fibrillation Presence of cardiac pacemaker Stage 3b chronic kidney disease (CKD) Tachy-pilo syndrome Thyroid disorder Home Medications furosemide 40 mg tablet (Lasix) 40 mg PO DAILY #30 tabs 06/15/21 [Rx Last Taken Unknown] potassium chloride 20 mEq tablet,extended release (K-Tab) 20 meq PO DAILY #30 tabs 06/15/21 [Rx Last Taken Unknown] warfarin 1 mg tablet 1 mg PO WE Blood Thinner 05/02/23 [History Last Taken Unknown] levothyroxine 88 mcg tablet 88 mcg PO DAILY 06/17/23 [History Last Taken Unknown] lisinopril 20 mg tablet mg PO DAILY 06/17/23 [History Last Taken Unknown] metoprolol tartrate 100 mg tablet 100 mg PO BID #180 tabs 06/17/23 [Rx Last Taken Unknown] warfarin 3 mg tablet 3 mg PO SUMOTUTHFRSA BLOOD THINNER 06/17/23 [History Last Taken Unknown] Allergy/AdvReac Type Severity Reaction Status Date / Time amiodarone AdvReac Intermediate Other Verified 07/24/23 13:18 Family History Mother Colon cancer Father Heart disease Myocardial infarction Surgical History S/P ablation of atrial fibrillation S/P appendectomy S/P cholecystectomy S/P partial thyroidectomy Social History household members: spouse Smoking Status: Former smoker how long ago did patient quit smoking: Quit 2014, 1/2 ppd since eraly 20s. alcohol intake: never substance use type: does not use ROS ROS ED Constitutional Constitutional ED: Denies chills, fever(s) or weight loss Eyes Eyes: Denies change in vision or diplopia ENT ENT ED: Denies ear pain, rhinorrhea or sore throat Cardiovascular Cardiovascular: Reports palpitations and racing heartbeat; Denies chest pain or orthopnea Respiratory/Chest Respiratory/Chest: Denies cough, dyspnea or orthopnea Gastrointestinal Gastrointestinal: Reports diarrhea, nausea and vomiting; Denies abdominal pain Genitourinary Genitourinary ED: Denies dysuria, hematuria or urinary frequency Musculoskeletal Musculoskeletal: Denies arthralgias or myalgias Integumentary Denies abscess or rash Neurologic Neurologic: Denies headache(s) or weakness Psychiatric Psychiatric: Denies anxiety, depression, suicidal ideation or suicidal thoughts Endocrine Endocrinology: Denies polydipsia, polyphagia or polyuria Allergic/Immunologic Allergic/Immunologic ED: Denies mouth swelling, tongue swelling or urticaria EXAM Physical Exam Const Vital Signs: 07/24/23 13:19 07/24/23 13:30 07/24/23 13:38 Temperature 98.0 F Temperature Source Temporal Pulse Rate 106 H 182 H Respiratory Rate 16 26 H Blood Pressure 85/51 L 120/83 H Blood Pressure Mean 62 95 Pulse Ox 83 83 99 Oxygen Delivery Method Room Air Room Air Nasal Cannula Oxygen Flow Rate (L/min) 3 07/24/23 15:27 07/24/23 15:47 Temperature 97.6 F L 97.6 F L Temperature Source Oral Oral Pulse Rate 109 H 110 H Respiratory Rate 18 24 H Blood Pressure 117/81 H 117/82 H Blood Pressure Mean 93 93 Pulse Ox 98 95 Oxygen Delivery Method Nasal Cannula Nasal Cannula Oxygen Flow Rate (L/min) 2 2 Positive well nourished and well developed General Appearance ED: well developed HEENT Reports normocephalic, head/scalp atraumatic and dry mucous membranes Mouth ED: Yes dry mucous membranes Mouth: dry mucous membranes Eyes PERRL and EOMs intact bilaterally Neck no lymphadenopathy, supple and no JVD Resp normal respiratory effort and clear to auscultation bilaterally Cardio no murmurs Rate: tachycardic Rhythm: abnormal rhythm irregularly irregular GI normal to inspection, nondistended, normoactive bowel sounds and non-tender Palpation: soft Back/Spine no CVA tenderness and normal ROM Extremity Extremity Narrative: Extremities are cool to the touch. General Extremety ED: Negative for edema General Extremity: Negative for edema Neuro oriented x3 and CN's II-XII intact bilaterally Sensorium / Orientation: alert Motor Exam: strength 5/5 throughout Psych mental status grossly normal Mood & Affect: Negative for depressed or tearful Skin no wounds Skin Narrative: Patient has mottling of the chest and abdominal skin as well as the lower extremities and arms. Sepsis Attestation Sepsis Alert: Yes Sepsis Attestation: Agree w/Sepsis Date exam was performed: 07/24/23 Time exam was performed: 14:30 Possible Source of Sepsis: GI tract/intra-abdominal Sepsis Organ Dysfunction Criteria Present: SBP < 90 mmHg or MAP < 65 mmHg, INR > 1.5 or aPTT > 60 sec and Lactic Acid > 2 mmol/L Fluid Resuscitation Fluid resuscitation indicated?: Yes Fluid Resuscitation ordered: 30 ml/kg fluid bolus ordered Amount of fluid ordered: 2,000 Sepsis Note Date exam was performed: 07/24/23 Time exam was performed: 15:30 Sepsis Attestation: Sepsis re-evaluation was performed Response to fluids: Fluid responsive hypotension MDM MDM MDM Narrative Medical decision making narrative: IV was established and the patient received 2 L of IV fluids. Heart rate has been coming down with hydration. White count is 10.3 with a hemoglobin of 17. This hemoglobin of 17 is elevated from baseline is most likely accounting representative of some hemoconcentration. BUN of 34 with a creatinine of 1.31. Glucose of 176 and a normal troponin. Hemoccult is negative. COVID and influenza are negative. Lactic acid returns and is elevated at 3.7. Her INR is 2. My interpretation of the chest x-ray is no acute process. Radiology is reading a opacity in the lower lobe. However lung sounds are clear. I believe the hypoxia to be related to poor perfusion. And when I look at what I think is the opacity they are referring to think this is most likely overlapping from external interference. With the administration of IV fluids her heart rate is significantly improved now down to around 100-110 and still in atrial fibrillation. Patient I believe the patienthas a viral gastroenteritis resulting in dehydration which resulted in atrial fibrillation with rapid ventricular response and poor perfusion. I believe she would benefit from continued IV hydration throughout the night. Because I believe this to be a viral illness I do not believe antibiotics are indicated. I reevaluated the patient approximately every 30 minutes. After the 2 L of normal saline is then she is no longer having any mottling. Heart rate is down to around 100-110. She continues to mentate well. Her extremities are now warm. Lab Data Attestation: I reviewed the patient's lab results. Labs: Laboratory Results - last 24 hr 07/24/23 07/24/23 07/24/23 13:50 14:20 14:30 WBC 10.3 RBC 5.96 H Hgb 17.0 H Hct 52.9 H MCV 88.8 MCH 28.5 MCHC 32.1 RDW Std Deviation 58.5 H RDW Coeff of Nicole 18.8 H Plt Count 232 MPV 10.3 Immature Gran % (Auto) 0.700 Neut % (Auto) 87.5 H Lymph % (Auto) 6.3 L [place] % (Auto) 5.1 Eos % (Auto) 0.1 Baso % (Auto) 0.3 Absolute Neuts (auto) 9.0 H Absolute Lymphs (auto) 0.65 L Nucleated RBC % 0 PT Cancelled 23.1 H INR Cancelled 2.0 APTT Cancelled 32.6 Sodium 130 L Potassium 4.9 Chloride 100 Carbon Dioxide 21.0 Anion Gap 9 BUN 34 H Creatinine 1.31 H Estim Creat Clear Calc 33.90 Est GFR (MDRD) Af Amer 51 L Est GFR (MDRD) Non-Af 42 L BUN/Creatinine Ratio 26.0 H Glucose 176 H Lactic Acid 3.7 H* Calcium 7.9 L Total Bilirubin 0.90 AST 40 H ALT 27 Alkaline Phosphatase 68 Troponin I High Sens 22 Total Protein 7.3 Albumin 3.4 Globulin 3.9 Albumin/Globulin Ratio 0.9 Urine Color Urine Clarity Urine pH Ur Specific Fowler Urine Protein Urine Glucose (UA) Urine Ketones Urine Occult Blood Urine Nitrite Urine Bilirubin Urine Urobilinogen Ur Leukocyte Esterase Urine RBC Urine WBC Ur Squamous Epith Cells Urine Bacteria Urine Mucus 07/24/23 15:20 WBC RBC Hgb Hct MCV MCH MCHC RDW Std Deviation RDW Coeff of Nicole Plt Count MPV Immature Gran % (Auto) Neut % (Auto) Lymph % (Auto) [place] % (Auto) Eos % (Auto) Baso % (Auto) Absolute Neuts (auto) Absolute Lymphs (auto) Nucleated RBC % PT INR APTT Sodium Potassium Chloride Carbon Dioxide Anion Gap BUN Creatinine Estim Creat Clear Calc Est GFR (MDRD) Af Amer Est GFR (MDRD) Non-Af BUN/Creatinine Ratio Glucose Lactic Acid Calcium Total Bilirubin AST ALT Alkaline Phosphatase Troponin I High Sens Total Protein Albumin Globulin Albumin/Globulin Ratio Urine Color Yellow Urine Clarity Clear Urine pH 6.5 Ur Specific Fowler 1.010 Urine Protein 30 H Urine Glucose (UA) Normal Urine Ketones Negative Urine Occult Blood 10 H Urine Nitrite Negative Urine Bilirubin Negative Urine Urobilinogen Normal Ur Leukocyte Esterase Negative Urine RBC 0 SEEN Urine WBC 0-5 SEEN Ur Squamous Epith Cells 0 SEEN Urine Bacteria 0 SEEN Urine Mucus 0 SEEN Radiography Diagnostic Testing: Clinical Impression(s) from Imaging Studies Chest X-Ray 07/24/23 14:15 IMPRESSION: Indeterminate left basilar opacity may reflect focal consolidation. Electronically Signed: Frida Grace MD at 14:58 EDT , EKG Initial EKG: Attestation: I personally reviewed and interpreted this EKG as follows: Comments: Atrial fibrillation with rapid ventricular response of 166 bpm. Critical Care Time Critical Care Time: Yes Critical care time (excluding procedures): 30-74 minutes (35 MIN), Discussing w/Patient &/or Family/Carrot Harvester, Discussing w/Consultants, Arranging Admission or Transfer and Performing Direct Patient Care at Bedside Discharge Plan Dx/Rx/DC Orders Clinical Impression: Acute dehydration, Gastroenteritis, Atrial fibrillation with RVR, Acute hypotension, Anticoagulated on Coumadin, Elevated lactic acid level, Acute renal insufficiency, Sepsis Disposition Disposition: [facility]
[2023-07-24 14:39] LABS: ALB/GLOB Ratio 0.9 RATIO (0.9-2.4); AST(SGOT) 40 U/L (15-37); Alanine Aminotransfer ALT/SGPT 27 U/L (13-56); Albumin, Serum 3.4 g/dL (3.2-5.0); Alkaline Phosphatase 68 U/L (45-117); Anion Gap 9 (5-15); BUN 34 mg/dL (7-18); Calcium,Total 7.9 mg/dL (8.5-10.1); Chloride 100 mmol/L (98-107); Creatinine, Serum 1.31 mg/dL (0.55-1.02); EST Glomerular Filtration Rate 42 mL/min (>60); Est Glom Filt Rate - Afr Amer 51 mL/min (>60); Globulin 3.9 g/dL (2.2-4.2); Glucose 176 mg/dL (74-106); Potassium 4.9 mmol/L (3.5-5.1); Protein, Total 7.3 g/dL (6.4-8.2); Sodium Level 130 mmol/L (136-145); Troponin-I HS 22 pg/mL (3.0-54.0)
[2023-07-24 15:13] LABS: Prothrombin Time (Protime)PT. 23.1 SECONDS (11.7-14.9)
[2023-07-24 15:14] LABS: Partial Thromboplast Time 32.6 Seconds (24.1-36.2)
[2023-07-24 15:33] LABS: Bacteria 0 SEEN /hpf (None Seen); Mucous, Urine 0 SEEN /hpf (<or=2+); Red Blood Cells-Urine 0 SEEN /hpf (0-5); Squamous Epithelial Cells - UA 0 SEEN /hpf (5-10)
[2023-07-24 15:35] LABS: Lactic Acid 3.7 mmol/L (0.4-1.9)
[2023-07-24 15:44] LABS: Color, Urine Yellow (Yellow); Protein-Dipstick 30 mg/dl (Negative); Urine Bilirubin Dipstick Negative (Negative); Urine Clarity Clear (Clear); Urine pH 6.5 (5.0 - 8.0)
[2023-07-24 15:47] LABS: Glucose, Dipstick Normal (Normal); Ketone-Dipstick Negative (Negative); Leukocyte Esterase-Dipstick Negative /ul (Negative); Nitrite-Dipstick Negative (Negative); Occult Blood-Urine 10 /ul (Negative); Urine Urobilinogen Normal (Normal)
--- NOTE | 2023-07-24 15:48 | PCM.HP.STD ---
HPI - General General Date of Admission: 07/24/23 Date of Service: 07/24/23 Chief Complaint: Intractable N/V/D. HPI Narrative The patient is a 72 y/o F w/ PMHx: HFpEF, Chronic anemia/Fe deficiency, Suspected CKD stage II from GFR record review, HTN, HLD, Former tobacco use, PAF s/p ablation, Tachy-pilo syndrome s/p pacemaker placement, CKD stage IIIb, Hypothyroidism who presents to the [facility] ED on 07/24/23 with history of persistent ongoing nausea, emesis as well as diarrhea with onset of significantly dark appearing stools this morning concerning for GI bleed as well as cough, fatigue and malaise prompting eventual ED evaluation. She notes at least 10 episodes of diarrhea overnight. Her grandson had similar recent sypmtoms with GI illness. Work-up in the ED included T98, heart rate 106, BP initially 85/51, respiratory rate 16, initially 83% on room air with improvement to 99% on 3 L nasal cannula with most recent vital signs with BP 120/83, heart rate significantly elevated to 182, CBC with WBC 10.3, hemoglobin 17, platelet 232 with left shift and lymphopenia, coags with INR 2.0, PT 23.1, PTT 32.6, CMP with sodium 130, BUN/creatinine 30/1.31, glucose 176, hepatic profile with AST 40 otherwise not marked appearing, troponin 22, lactic acid pending upon requested evaluation of patient, urinalysis pending upon requested evaluation of patient, chest x-ray with indeterminate left basilar opacity possibly a focal consolidation, stool guaiac negative, SARS COVID and flu antigens negative, EKG atrial fibrillation with RVR although on telemetry monitoring in the ED improved clinically with administration of IV fluids alone. In the ED patient ministered 1 L normal saline. [facility] Medical History (HFpEF) heart failure with preserved ejection fraction Claudication Diastolic CHF Ectopic atrial tachycardia Elevated TSH Former heavy cigarette smoker (20-39 per day) Former tobacco use History of goiter HLD (hyperlipidemia) HTN (hypertension) Hypothyroidism PAH (pulmonary artery hypertension) Paroxysmal atrial fibrillation Presence of cardiac pacemaker Stage 3b chronic kidney disease (CKD) Tachy-pilo syndrome Thyroid disorder Home Medications furosemide 40 mg tablet (Lasix) 40 mg PO DAILY #30 tabs 06/15/21 [Rx Last Taken Unknown] potassium chloride 20 mEq tablet,extended release (K-Tab) 20 meq PO DAILY #30 tabs 06/15/21 [Rx Last Taken Unknown] warfarin 1 mg tablet 1 mg PO WE Blood Thinner 05/02/23 [History Last Taken Unknown] levothyroxine 88 mcg tablet 88 mcg PO DAILY 06/17/23 [History Last Taken Unknown] lisinopril 20 mg tablet mg PO DAILY 06/17/23 [History Last Taken Unknown] metoprolol tartrate 100 mg tablet 100 mg PO BID #180 tabs 06/17/23 [Rx Last Taken Unknown] warfarin 3 mg tablet 3 mg PO SUMOTUTHFRSA BLOOD THINNER 06/17/23 [History Last Taken Unknown] Allergy/AdvReac Type Severity Reaction Status Date / Time amiodarone AdvReac Intermediate Other Verified 07/24/23 13:18 Family History Mother Colon cancer Father Heart disease Myocardial infarction Surgical History S/P ablation of atrial fibrillation S/P appendectomy S/P cholecystectomy S/P partial thyroidectomy Social History household members: spouse Smoking Status: Former smoker how long ago did patient quit smoking: Quit 2014, 1/2 ppd since eraly 20s. alcohol intake: never substance use type: does not use ROS ROS Narrative Admission Review of Systems: CONSTITUTIONAL: No weight loss, fever, chills, + weakness or fatigue. HEENT: Eyes: No visual loss, blurred vision, double vision or yellow sclerae. Ears, Nose, Throat: No hearing loss, sneezing, congestion, runny nose or sore throat. SKIN: No rash or itching, lesions, wounds. CARDIOVASCULAR: + Palpitations. No chest pain, chest pressure or chest discomfort, edema, orthopnea, syncopal events. RESPIRATORY: + shortness of breath, occasional cough. No marked sputum, wheezing, hemoptysis. GASTROINTESTINAL: + anorexia, nausea, vomiting, diarrhea, dark stools, No abdominal pain, BRBPR. GENITOURINARY: No dysuria, frequency, urgency or retention. NEUROLOGICAL: No headache, dizziness, syncope, paralysis, ataxia, numbness or tingling in the extremities, focal weakness, change in bowel or bladder control, seizure. MUSCULOSKELETAL: + muscle, back pain, joint pain or stiffness. HEMATOLOGIC: + anemia, bleeding or bruising. LYMPHATICS: No enlarged nodes. No history of splenectomy. PSYCHIATRIC: No history of depression or anxiety. ENDOCRINOLOGIC: No reports of sweating, cold or heat intolerance. No polyuria or polydipsia. ALLERGIES: No history of asthma, hives, eczema or rhinitis. Vital Signs Vital Signs Vital Signs: 07/24/23 13:19 07/24/23 13:30 07/24/23 13:38 Temperature 98.0 F Temperature Source Temporal Pulse Rate 106 H 182 H Respiratory Rate 16 26 H Blood Pressure 85/51 L 120/83 H Blood Pressure Mean 62 95 Pulse Ox 83 83 99 Oxygen Delivery Method Room Air Room Air Nasal Cannula Oxygen Flow Rate (L/min) 3 07/24/23 15:27 07/24/23 15:47 Temperature 97.6 F L 97.6 F L Temperature Source Oral Oral Pulse Rate 109 H 110 H Respiratory Rate 18 24 H Blood Pressure 117/81 H 117/82 H Blood Pressure Mean 93 93 Pulse Ox 98 95 Oxygen Delivery Method Nasal Cannula Nasal Cannula Oxygen Flow Rate (L/min) 2 2 Weight Weight: 131 lb 13.383 oz Body Mass Index (BMI) 21.9 Physical Exam Narrative Physical Examination: General: Awake, alert, oriented x 3 and cooperative, seated upright in the bed, fatigued appearing, no acute distress, notes feeling better, HR initially was rate controlled but during evaluation again went up into the 150s. Skin: Normal color, normal turgor, no icterus, no cyanosis occasional staged ecchymoses. HEENT: AT/NC, EOMI, PERRLA, mildly dry MM, no carotid bruits, no marked JVD noted. Lungs: Diminished, greater bases, no evidence of respiratory distress, no rales, ronchi or wheezing. Heart: Irregular irregular; no gallop, rub audible. Abdomen: Soft, thin habitus, NTTP, ND, hyperactive BS, no HSM. Extremities: No cyanosis, no clubbing, bilateral lower extremity minimal ankle nonpitting edema. Neurological: Patient awake, alert, oriented as noted, cognitive function appears baseline intact; pupils equally reactive to light and accommodation, cranial nerves II-XII grossly normal, moving all 4 extremities, no focal deficits, strength severely global decrease secondary to acute presentation. Psychiatric: Affect appears fatigued, no acute evidence of depressive or anxiety feelings. Results Lab / Micro Data 07/24/23 13:50 07/24/23 13:50 Labs: Laboratory Results - last 24 hr 07/24/23 13:50: WBC 10.3, RBC 5.96 H, Hgb 17.0 H, Hct 52.9 H, MCV 88.8, MCH 28.5, MCHC 32.1, RDW Std Deviation 58.5 H, RDW Coeff of Nicole 18.8 H, Plt Count 232, MPV 10.3, Immature Gran % (Auto) 0.700, Neut % (Auto) 87.5 H, Lymph % (Auto) 6.3 L, [place] % (Auto) 5.1, Eos % (Auto) 0.1, Baso % (Auto) 0.3, Absolute Neuts (auto) 9.0 H, Absolute Lymphs (auto) 0.65 L, Nucleated RBC % 0, PT Cancelled, INR Cancelled, APTT Cancelled, Sodium 130 L, Potassium 4.9, Chloride 100, Carbon Dioxide 21.0, Anion Gap 9, BUN 34 H, Creatinine 1.31 H, Estim Creat Clear Calc 33.90, Est GFR (MDRD) Af Amer 51 L, Est GFR (MDRD) Non-Af 42 L, BUN/Creatinine Ratio 26.0 H, Glucose 176 H, Calcium 7.9 L, Total Bilirubin 0.90, AST 40 H, ALT 27, Alkaline Phosphatase 68, Troponin I High Sens 22, Total Protein 7.3, Albumin 3.4, Globulin 3.9, Albumin/Globulin Ratio 0.9 07/24/23 14:20: PT 23.1 H, INR 2.0, APTT 32.6 07/24/23 14:30: Lactic Acid 3.7 H* Micro: Microbiology 07/24/23 14:00 Nasal Secretion SARS-CoV-2 & FLU Antigen (Rapid) - Final 07/24/23 13:30 Stool Stool Occult Blood (RADU) - Final Radiology Impression Chest X-Ray 07/24/23 14:15 IMPRESSION: Indeterminate left basilar opacity may reflect focal consolidation. Electronically Signed: Frida Grace MD at 14:58 EDT , Assessment & Plan Assessment/Plan (1) Sepsis: PLAN: Plan The patient is a 72 y/o F w/ PMHx: HFpEF, Chronic anemia/Fe deficiency, Suspected CKD stage II from GFR record review, HTN, HLD, Former tobacco use, PAF s/p ablation, Tachy-pilo syndrome s/p pacemaker placement, CKD stage IIIb, Hypothyroidism who presents to the [facility] ED on 07/24/23 with history of persistent ongoing nausea, emesis as well as diarrhea with onset of significantly dark appearing stools this morning concerning for GI bleed as well as cough, fatigue and malaise prompting eventual ED evaluation. #1. Acute Sepsis secondary to Suspected primarily Acute Viral Gastroenteritis, lower suspicion for PNA as noted above (Tachycardic, Hypotensive, Hypoxic, Lactic acidosis, Acute renal insufficiency): Administered IVFs in the ED as noted, and lower suspicion for actual bacterial pneumonia and more suspicious for something overlying but patient is dehydrated likely secondary to GI losses with acute viral gastroenteritis especially with history of recent child ill contact, will admit to PCU, maintain on monitor, will continue patient home metoprolol especially given improvement of heart rate only with fluids alone, will plan repeat chest x-ray in a.m. and continue to evaluate for possible pneumonia with de-escalation off antibiotic therapy if clinically improving and rule out pneumonia, as noted we will continue to assure no GI bleed component and if this is the case then may transition to clear with advance diet as tolerated once GI symptoms are improving, will maintain on fall and aspiration precautions, PT/OT/case management consulted for discharge planning, trend lactic acid per facility protocol. #2. Acute Hypoxia, possible secondary to poor wave form, Possibly secondary to L basilar opacity although could be overlaying on film with associated lactic acidosis likely secondary to acute infectious presentation (viral suspected more than possible bacterial PNA of note) and hypoxia: Will maintain on oxygen with wean as tolerated to room air, PRN albuterol, maintain on IV Rocephin and Azithromycin but low suspicion of actual PNA thus would de-escalate if repeat CXR in AM unremarkable after overnight hydration, HOB, IS parameters w/ pending sputum cultures, full respiratory viral panel and urine antigens. Bld cx x 2 obtained in the ED. #3. Low Suspicion Acute GI bleed w/ Chart history of Chronic anemia/iron deficiency anemia in the setting of N/V/D/Cough, suspected Acute Viral Gastroenteritis: Admission Hgb 17 however dehydrated, given guiac negative will hold on reversing coumadin, will obtain serial H+H,, maintain on IV PPI, COVID PCR requested, stool enteric and cdiff requested, if no obvious evidence of GI bleed/Hgb stable will transition to clears with ADAT and add back coumadin. If stool studies negative will add as needed loperamide. #4. Paroxysmal atrial fibrillation w/ RVR: Status post ablation, Recent 05/02/2023 echocardiogram with normal LV size, EF 51%, LV systolic function lower limit normal, moderate TVI, PASP 40 mmHg, mildly enlarged LA and RA, likely secondary to dehyration and acute GI presentation as noted, holding coumadin until rule out GI bleed, HR improved with IVFs only, will continue on metoprolol home regimen with dose x 1 now, mag and TSH pending, will cycle cardiac enzymes to be cautious. #5. Acute Renal Insufficiency on Chronic Kidney Disease Stage II suspected, previous GFR labs had been more concerning for stage IIIb: Likely secondary to dehydration, GI losses as noted. Admission BUN/Cr 34/1.31, baseline renal function primarily 0.7-0.9, repeat CMP in AM. If worsens or does not improve will hold ACEI and lasix or if ongoing notable GI losses still. #6. Chronic HFpEF: Will maintain on cardiac telemetry, holding coumadin as noted until assure no GI bleed component, will continue patient home metoprolol, lisinopril, Lasix home regimen; however, if still notable GI losses will hold lasix. 05/02/2023 echocardiogram with normal LV size, EF 51%, LV systolic function lower limit normal, moderate TVI, PASP 40 mmHg, mildly enlarged LA and RA. #7. Hypothyroidism: Patient with history of prior goiter status post partial thyroidectomy, will continue patient home levothyroxine regimen. #8. Hypertension: Continue home regimen lisinopril, metoprolol, Lasix as BP allows as was initially hypotensive but improved with IV fluids, PRN hydralazine. #9. Hyperlipidemia: Not on statin therapy. #10. GERD: Previously on PPI, as noted we will maintain on IV PPI until sure no GI bleed, will have as needed Mylanta also. #11. History of tachybradycardia syndrome: Status post pacemaker. #12. DVT prophylaxis: SCDs, holding coumadin temporarily until assure no GI bleed, low suspicion, trend INR. #13. CODE status: Patient HCPOA is her who is present and living will is currently in place. Full Code status. Charges/Coding Visit Charges Inpatient E&M: 90564 Init Hosp L3
[2023-07-24 15:56] LABS: White Blood Cells 0-5 SEEN /hpf (0-5)
--- NOTE | 2023-07-24 16:02 | NURSING ---
129 WHITE SEPSIS, DEHYDRATION, GASTROENTERITIS
[2023-07-24] MEDS: 0.9% Normal Saline (1000mL) 1,000 ML 250 ML IV (16:03)
[2023-07-24 16:38] LABS: Magnesium 2.3 mg/dL (1.6-2.6)
[2023-07-24] MEDS: 0.9% Normal Saline (1000mL) 1,000 ML 100 ML IV (18:25)
[2023-07-24 18:38] LABS: Reflex Lactate? Y
[2023-07-24 19:08] LABS: Hematocrit 39.8 % (37-47); Hemoglobin 12.9 g/dL (12.0-15.0)
[2023-07-24 19:35] LABS: Lactic Acid 0.8 mmol/L (0.4-1.9)
[2023-07-24 19:51] LABS: Procalcitonin 0.21 ng/mL (0.00-0.09)
[2023-07-24] MEDS: Ceftriaxone 1 GM/50 ML BAG IV (19:55)
[2023-07-24] MEDS: Metoprolol Tartrate 100 MG Tablet PO (20:15)
[2023-07-24] MEDS: Azithromycin 500 MG in Dextrose 5%-Water (250mL Bag) 250 ML 250 MG IV (20:57)
[2023-07-24 21:23] LABS: Troponin-I HS 75 pg/mL (3.0-54.0)
--- NOTE | 2023-07-24 22:35 | RAD_ITS ---
INDICATION: flash pulm edema EXAMINATION/TECHNIQUE: X-RAY - XR Chest 1 View COMPARISON: 07/24/2023 at 2:14 PM. FINDINGS: LINES/DEVICES: Endotracheal tube tip 2.2 cm from the [place]. Right subclavian central venous catheter tip at the superior vena cava/right atrial junction. Cardiac pacer and leads are stable. LUNGS: Diffuse bilateral airspace opacities predominantly in the upper lobes. No evidence of a pneumothorax. Small left pleural effusion. MEDIASTINUM AND CARDIOVASCULAR STRUCTURES: Cardiac silhouette is normal in size and contour. Mediastinum is unremarkable. BONES AND SOFT TISSUES: No acute abnormality. RAD/Chest 1 View (Portable) IMPRESSION: 1. Bilateral airspace opacities predominantly in the upper lobes consistent with edema versus pneumonia. 2. Small left pleural effusion. Electronically Signed: Ramy Saldivar DO at 23:40 EDT ,
[2023-07-24 23:04] LABS: Hematocrit 42.5 % (37-47); Hemoglobin 12.5 g/dL (12.0-15.0)
[2023-07-24 23:41] LABS: Troponin-I HS 127 pg/mL (3.0-54.0)
[2023-07-25 00:02] LABS: Bedside Glucose 214 mg/dL (74-106)
--- NOTE | 2023-07-25 03:54 | PCM.DEATH ---
Preliminary Cause of Preliminary Cause of Preliminary Cause of : Respiratory arrest Date of Admission: 07/24/23 Date of : 07/24/23 Principle Diagnosis Sepsis without shock suspected secondary to gastroenteritis Problem List: Active and Suspected Problems (Updated 07/24/23 @ 15:[address] Hira Gunderson, DO) Sepsis (Acute) Acute renal insufficiency (Acute) Elevated lactic acid level (Acute) Anticoagulated on Coumadin (Acute) Acute hypotension (Acute) Atrial fibrillation with RVR (Acute) Gastroenteritis (Acute) Acute dehydration (Acute) Hospital Course Patient is a 72-year-old female with history of HFpEF, tachybradycardia syndrome s/p pacemaker placement, CKD stage III, PAF s/p ablation with recurrence of atrial fibrillation on warfarin, iron deficiency anemia, hypertension and hyperlipidemia who presented to [facility] on the afternoon of 07/24/2023 with several concerns including persistent nausea and vomiting, cough, fatigue, and new onset of dark appearing stools. Work-up in the ED was notable for mild hypotension, hypoxia requiring 2 to 3 L nasal cannula to maintain saturations greater than 90%, heart rate 106, suspected hemoconcentrated labs with hemoglobin 17, INR 2.0, lactate of 3.7. Patient notably had intermittent spikes of her heart rate into the 170s to 180s during this time, rhythm appeared to be A-fib. Patient was given 1 L of normal saline in the ED with some improvement in pressure and heart rate. She was then given another 2 L of normal saline boluses with further improvement in pressure and heart rate. Chest x-ray showed an indeterminate left basilar opacity concerning for possible pneumonia. COVID and flu antigens were negative. Stool guaiac was negative. Patient was admitted under inpatient status and transported to the PCU. Arrived in the PCU in the late afternoon. Per nursing staff, patient was satting well on 2 to 3 L nasal cannula during that time and was alert and oriented, and did not appear to be in acute distress. She was initiated on ceftriaxone and azithromycin for possible pneumonia. She was also given her home metoprolol to assist in controlling her A-fib with RVR. Was also started on an IV PPI for concern for possible GI bleed. Patient was last seen well in her room at approximately 9 to 9:30 PM on 07/24. Patient was then found unresponsive by nursing staff in bed and ROBB CAMPOVERDE was called overhead at 9:43 PM. Patient had extensive resuscitation efforts done as documented fully in CODE BLUE note. Unfortunately, despite all resuscitation efforts, patient with time of of 11:02 PM. Assessment & Plan Assessment/Plan (1) Respiratory arrest: PLAN: Plan Patient is a 72-year-old female with history of HFpEF, tachybradycardia syndrome s/p pacemaker placement, CKD stage III, PAF s/p ablation with recurrence of atrial fibrillation on warfarin, iron deficiency anemia, hypertension and hyperlipidemia who presented to [facility] on the afternoon of 07/24/2023 with several concerns including persistent nausea and vomiting, cough, fatigue, and new onset of dark appearing stools. Hospital course as noted above. Discharge diagnoses: ? Cardiac arrest ? Sepsis without shock, concern for community-acquired pneumonia ? Acute hypoxic respiratory failure ? Paroxysmal atrial fibrillation with RVR on Coumadin ? History of tachybradycardia syndrome s/p pacemaker ? DARYN on CKD ? Concern for GI bleed ? HFpEF ? Hypothyroidism ? Hypertension ? Hyperlipidemia Total clinical time spent by myself addressing the patient's discharge needs: 45 minutes. Visit Charges Inpatient E&M: 63028 Disch Hosp >30min
--- NOTE | 2023-07-25 03:55 | PCM.HOSP.N ---
Hospitalist Note ROBB GILLES called overhead for patient at 9:43 PM. Arrived to patient bedside approximately 2 minutes later. Patient was actively receiving chest compressions on my arrival. Per nursing staff, patient was found lying flat in bed, unresponsive with no pulse. Had been seen approximately 20 minutes prior to that, was comfortable on 2 L nasal cannula but did have some rhonchorous breath sounds at that time. Initial rhythm per nursing staff was PEA. After 1 round of chest compressions, repeat pulse check again showed PEA, compressions were resumed. Given 1 mg of epinephrine at that time. Respiratory therapy was at head of bed and bagging the patient, stated patient was occasionally having agonal respirations that did make her somewhat difficult to bag. On next pulse check, patient again had PEA and compressions were resumed. At this time, I went to head of bed in preparation to intubate patient. Initially attempted to intubate with direct visualization with MAC blade, as glide scope was initially unavailable. Patient was seen to have a fairly anterior airway, had some whitish secretions in mouth, otherwise had fairly good view. Unable to intubate with MAC blade, respiratory therapy resume bagging the patient. Then obtained glide scope and patient was excessively intubated with a 7.0 tube, 25 cm at the lip. Had direct visualization of tube passing through cords, bilateral breath sounds, color change on monitor. Shortly after intubation, patient did regain a pulse and had A-fib with RVR on the monitor. Blood pressure was cycled and was approximately 170s over 100s. Patient was actively being bagged through endotracheal tube. Plan was made to transfer patient to ICU but prior to this, patient's heart rhythm degenerated into ventricular tachycardia at approximately 220 bpm and patient again lost a pulse. Chest compressions were started for approximately 30 seconds as defibrillator was charged. Patient received 1 defibrillation of 200 J, with return of rhythm to A-fib with RVR and return of spontaneous circulation. Patient was then transported up to the ICU. During this time, it was noted the patient began to have fairly significant bloody output into the endotracheal tube that was actively suctioned by respiratory therapy. On arrival to the ICU, patient was placed on ventilator and code labs were attempted to be drawn. Nursing staff noted that blood return and peripheral IVs was very weak, and they were not initially able to draw any labs. Approximately 7 to 10 minutes after arrival to the ICU, patient was seen to have slowing of her heart rhythm to the 60s, and again lost a pulse at that time. CPR was resumed at this time. Initial rhythm was PEA. Patient was given a dose of 1 mg epinephrine, as well as 1 amp of bicarb. She notably had already received 2 A of bicarb at this point given high concern for acidosis. Patient received 2 rounds of CPR, received another dose of 1 mg of epinephrine and achieved ROSC after 2 rounds. Was noted to have A-fib with RVR to the 140s on monitor, and cycle blood pressure was in the 150s systolic. Doppler was being used on femoral pulse to effectively locate a pulse. Unfortunately, patient again had slowing of the heart rate over a period of approximately 4 to 5 minutes and lost a pulse. CPR was resumed. Initial rhythm of PEA. Given another dose of epinephrine and bicarb. Respiratory therapy took patient off of ventilator and was bagging the patient at this time. Again was noted to have significant bright bloody output from the endotracheal tube. In interim between ROSC and this loss of pulse, a chest x-ray was able to be obtained and showed fairly significant bilateral pulmonary edema. Similar to prior, patient again regained a pulse after about 2-3 rounds of CPR and 2 total pushes of epinephrine. At this time, patient's son arrived to the floor. I talked with patient's son for several minutes regarding patient's brief course since initial CODE BLUE as noted above. Told him that it was unclear what caused patient's initial code, but had high concern for a respiratory event such as a possible aspiration causing respiratory arrest. Noted that unfortunately given patient's anticoagulation on Coumadin for tachybradycardia syndrome, she had had significant bright bloody output from the endotracheal tube after several rounds of chest compressions. At high concern that patient was having active bleeding into the chest and lungs causing further difficulty with oxygenation. Noted that patient seemed to be following a course of regaining a pulse with epinephrine, followed by bradying down as the epinephrine effect wore off followed by loss of pulse. Because we are unable to draw code labs, had no clear marker of her degree of acidosis or lab abnormalities but suspected she had very significant acidosis at that time. Son noted that patient was and that he had called patient's , who was supposedly on his way but has severe COPD and would have difficulty getting to the hospital and up to patient's room without significant assistance. Shortly after this discussion with son, patient again went into cardiac arrest. CPR was resumed and patient required 3-4 rounds of chest compressions with epinephrine prior to regaining a pulse. Discussed with son that unfortunately given her trajectory, patient was highly unlikely to survive this event. We discussed that if patient was to lose pulse again, further attempts at several rounds of CPR would be futile. He agreed that we could conduct 1 round of CPR, and if patient did not regain a pulse after this then comfort measures would be put into place. About 2 to 3 minutes later, patient again lost a pulse. Patient underwent 1 round of CPR, unfortunately did not have a pulse with pulse recheck. At this time, CPR was not resumed and patient was allowed to pass peacefully. Time of was 11:02 PM.
== END 2023-07-25 01:30 | DRG 871 ==
LOC: ED 15:39 → PCU 16:46 → ICU 22:08
PROVIDERS: Admitting Provider Family Medicine; Emergency Provider Emergency Medicine; PCP Family Medicine; Visit Provider Family Medicine
DX: A41.9 Sepsis, unspecified organism (principal); J96.01 Acute respiratory failure with hypoxia; J18.9 Pneumonia, unspecified organism; E87.20 Acidosis, unspecified; I13.0 Hypertensive heart and chronic kidney disease with heart failure and stage 1 through stage 4 chronic kidney disease, or unspecified chronic kidney disease; I47.20 Ventricular tachycardia, unspecified; N17.9 Acute kidney failure, unspecified; I46.9 Cardiac arrest, cause unspecified; D63.1 Anemia in chronic kidney disease; I49.5 Sick sinus syndrome; J44.9 Chronic obstructive pulmonary disease, unspecified; N18.32 Chronic kidney disease, stage 3b; I48.0 Paroxysmal atrial fibrillation; E89.0 Postprocedural hypothyroidism; E78.5 Hyperlipidemia, unspecified; K21.9 Gastro-esophageal reflux disease without esophagitis; D50.9 Iron deficiency anemia, unspecified; E86.0 Dehydration; A08.4 Viral intestinal infection, unspecified; Z80.0 Family history of malignant neoplasm of digestive organs; R74.02 Elevation of levels of lactic acid dehydrogenase [LDH]; Z95.0 Presence of cardiac pacemaker; Z79.01 Long term (current) use of anticoagulants; Z87.891 Personal history of nicotine dependence
CPT/HCPCS: 31500; 36415; 71045; 80053; 81001; 82274; 82962; 83605; 83735; 84145; 84484; 85014; 85018; 85025; 85610; 85730; 87040; 87077; 87086; 87088; 87186; 87428; 92950; 93005; 94668; 94799; 99285; J7030; P9612; A4216